=== PATIENT | male | born 1950 | race Caucasian/White ===

== ENCOUNTER 2016-12-19 14:12 | Observation (INO) ==
[2016-12-19] MEDS ORDERED: 0.9 % Sodium Chloride 1,000 ML IVC ONE (14:14)
--- NOTE | 2016-12-19 14:35 | Emergency Department Note ---
Disposition Clinical Impression: Colitis Dyspnea Qualifiers: Dyspnea type: shortness of breath Qualified Code(s): R06.02 - Shortness of breath Sepsis Qualifiers: Sepsis type: sepsis due to unspecified organism Qualified Code(s): A41.9 - Sepsis, unspecified organism Disposition: Admitted As Inpatient Condition: Fair Referrals: NO,PCP [Non-Partnered Physician] - Forms: ED Satisfaction Letter Time of Disposition: 17:47 SOB HPI - General Chief Complaint: ED Shortness of Breath/Dyspnea Stated Complaint: cough/mona Time Seen by Provider: 12/19/16 14:14 Source: EMS Mode of arrival: EMS Limitations: no limitations Nursing Notes Reviewed: Yes Vital Signs Reviewed: Yes - History of Present Illness 66-year-old male with history of COPD on dialysis, last dialysis one day ago, arrives to emergency emergency department with a chronic cough, ill feeling, and tachypneic. The patient states that the ill feeling started 2-3 days ago and the cough was roughly 3 weeks ago. The patient was diagnosed with bronchitis roughly 1 month ago and started on albuterol inhaler as well as finished a by mouth steroid. The patient stated that did not help his symptoms. The patient states he feels ill overall. The patient denies any chest pain, abdominal pain, diarrhea. The patient has had a few episodes of posttussive vomiting. In addition the patient is complaining of right eye itching and discharge. The patient does have a yellowish discharge in the medial aspect of bilateral eyes. The conjunctiva on the right eye is injected. The patient denies any other complaints at this time. No visual abnormalities. Pt Subjective Complaint: shortness of breath, cough Onset (ago): day(s) (4) Consistency/Duration: constant Improves with: nothing Worsens with: nothing Known history of: recurrent pneumonia Associated symptoms: Reports: sputum production Treatment prior to arrival: none Cough present: Yes Cough Description: Involuntary, Productive Cough Frequency: Continuous Sputum production: Yes Sputum Amount: Small Sputum Color: White, Cream - Related Data Home oxygen amount: none Home Medications Medication Instructions Recorded Confirmed Omeprazole [PriLOSEC] 20 mg PO HS 08/05/15 12/19/16 Ergocalciferol (VITAMIN D2) 100,000 unit PO MO 09/16/15 12/19/16 [Vitamin D2 (50,000 UNIT)] Allopurinol [Zyloprim 100 MG] 100 mg PO DAILY 12/05/15 12/19/16 Loratadine [Claritin] 10 mg PO DAILY 12/05/15 12/19/16 Sevelamer [Renvela] 800 mg PO TIDWM 12/05/15 12/19/16 Albuterol Sulfate [Proair Hfa] 2 puff IH Q4H PRN 01/31/16 12/19/16 Furosemide [Lasix] 40 mg PO BID 01/31/16 12/19/16 Tamsulosin [Flomax] 0.4 mg PO DAILY 01/31/16 12/19/16 Albuterol Neb [Proventil Neb] 2.5 mg IH Q4HR PRN 12/19/16 12/19/16 Insulin Glargine,Hum.rec.anlog 67 unit SQ HS 12/19/16 12/19/16 [Lantus Solostar] Insulin LISPRO [HumaLOG] 37 units SQ TIDWM 12/19/16 12/19/16 Multivitamin [Multi-Day Vitamins] 1 each PO DAILY 12/19/16 12/19/16 Propranolol [Inderal] 10 mg PO DAILY 12/19/16 12/19/16 Silver Sulfadiazine [Ssd] 1 appl TP BID 12/19/16 12/19/16 Simvastatin [Zocor] 20 mg PO HS 12/19/16 12/19/16 Allergies Allergy/AdvReac Type Severity Reaction Status Date / Time No Known Allergies Allergy Verified 02/18/16 07:17 All systems ED: reviewed and negative except as stated. Constitutional: Reports: chills. Denies: fever, weakness, weight change Eyes: Reports: eye discharge. Denies: eye pain, vision change ENT ED: Denies: ear pain, throat pain, dental pain, hearing loss, epistaxis, congestion, dysphagia Cardiovascular: Denies: chest pain, palpitations, dyspnea on exertion, edema, syncope Respiratory: Reports: cough, dyspnea, sputum production. Denies: wheezes, hemoptysis, stridor Gastrointestinal: Denies: abdominal pain, nausea, vomiting, diarrhea, constipation, hematemesis, melena, hematochezia Musculoskeletal: Denies: back pain, neck pain, arthralgia, myalgia Integumentary: Denies: rash, abrasion, lesions Neurological: Denies: headache, weakness, numbness, paresthesias, confusion, abnormal gait, vertigo Past Medical History - Past Medical History Attestation: Yes The following information was validated with the patient. Source: patient Medical history: Reports: diabetes, dialysis, hyperlipidemia, peripheral artery disease, renal disease Surgical history: Reports: cholecystectomy, orthopedic, other, other Psychiatric history: Reports: no psych history - Social History Smoking Status: Never smoker Smokeless Tobacco Status: No Alcohol use: Reports: none Drug use: Reports: none Physical Exam - General Limitations: no limitations General appearance: alert - Head Head exam: atraumatic, normocephalic, normal inspection - Eye Eye exam: Present: conjunctival injection (On right) - ENT ENT exam: normal exam, normal oropharynx, mucous membranes moist - Neck Neck exam: Present: normal inspection, full ROM, trachea midline - Chest Chest inspection: Present: normal inspection, symmetric chest wall rise - Respiratory Respiratory exam: Present: other (Course breath sounds bilaterally, tachypneic) - Cardiovascular Cardiovascular exam: Present: normal rhythm, tachycardia, normal heart sounds - Abdominal Exam Abdominal exam: Present: soft, Non-Tender. Absent: tenderness, distention, guarding, rebound, rigidity - Extremities Exam Extremities exam: Present: normal inspection, full ROM, other (Bilateral digits missing on hands, left dialysis fistula intact with palpable thrill). Absent: tenderness, pedal edema - Back Exam Back exam: Present: normal inspection, full ROM. Absent: tenderness - Neurological Exam Neurological exam: Present: alert, oriented X3 - Skin Skin exam: Present: warm, dry, intact, normal color Course - Reevaluation(s) Reevaluation #1: Patient's lactic acid returned at 3.2. At this time will conduct further investigation as the patient's chest x-ray is negative for any acute findings. The patient does have no leukocytosis noted. The patient does currently make urine. We will obtain a urinalysis, CT scan of the chest, abdomen, pelvis. The patient has no obvious wounds that would be indicative of causing the patient's septic symptoms at this time. The patient received 1 L fluid bolus. Time: 15:13 Reevaluation #2: Patient states that he is so short of breath he is unable to get into his wheelchair or perform ADL's. The patient has no wheezing or decreased breath sounds on auscultation. Vital Signs Temperature 98.2 F 12/19/16 14:12 Pulse Rate 108 12/19/16 14:12 Respiratory Rate 20 12/19/16 14:12 Blood Pressure 120/72 12/19/16 14:12 O2 Sat by Pulse Oximetry 100 12/19/16 14:12 Temperature 98.2 F 12/19/16 14:12 Pulse Rate 83 12/19/16 16:26 Respiratory Rate 18 12/19/16 16:26 Blood Pressure 122/65 12/19/16 16:26 O2 Sat by Pulse Oximetry 96 12/19/16 16:26 Oxygen Delivery Oxygen Delivery Room Air Shortness of Breath/Dyspnea - MDM Narrative Medical decision making narrative: Admitted by hospitalist - Medical Records Medical records reviewed: Yes I reviewed the patient's medical records. - Lab Data Lab results reviewed: Yes I reviewed the patient's lab results. Result diagrams: 12/19/16 14:30 12/19/16 14:30 Lab Results 12/19/16 12/19/16 12/19/16 Range/Units 14:30 14:30 14:30 WBC 8.5 (4.3-11.1) K/mcL RBC 2.87 L (4.19-5.50) M/mcL Hgb 9.6 L (12.9-16.9) g/dL Hct 27.7 L (37.5-50.1) % MCV 96.5 (83.0-100.0) fL MCH 33.4 H (28.0-33.3) pg MCHC 34.7 (31.6-35.5) g/dL RDW 13.4 (11.5-14.5) % Plt Count 223 (140-400) K/mcL MPV 8.8 L (9.4-12.4) fL Immature Gran % 0.4 (0-4) % Seg Neutrophils % 69.3 % Lymphocytes % 18.7 % Monocytes % 6.4 % Eosinophils % 4.7 % Basophils % 0.5 % Neutrophils # 5.9 (1.6-8.9) K/mcL Lymphocytes # 1.6 (0.6-4.6) K/mcL Monocytes # 0.5 (0.0-1.3) K/mcL Eosinophils # 0.4 (0.0-0.6) K/mcL Basophils # 0.0 (0.0-0.2) K/mcL Sodium 141 (136-145) mEq/L Potassium 4.0 (3.5-4.5) mEq/L Chloride 102 (98-109) mEq/L Carbon Dioxide 26 (19-29) mEq/L BUN 33 H (8-26) mg/dL Creatinine 4.71 H (0.72-1.25) mg/dL Est GFR ( Amer) 15 L (> 60) Est GFR (Non-Af Amer) 12 L (> 60) BUN/Creatinine Ratio 7 (6-26) Glucose 207 H (70-99) mg/dL Calculated Osmolality 305 H (280-300) Lactic Acid 3.2 H (0.5-2.2) mmol/L Calcium 9.2 (8.6-10.8) mg/dL Urine Color (Yellow) Urine Clarity (Clear) Urine pH (5.0-8.0) pH Units Ur Specific [place] (1.010-1.025) Urine Protein (Neg-Trace) mg/dL Urine Glucose (UA) (Normal) mg/dL Urine Ketones (Negative) mg/dL Urine Blood (Negative) Urine Nitrite (Negative) Urine Bilirubin (Negative) Urine Urobilinogen (Normal) mg/dL Ur Leukocyte Esterase (Negative) Urine Microscopic RBC (0-3) per hpf Urine Microscopic WBC (0-3) per hpf Ur Squamous Epith Cells (None-Few) per lpf Urine Bacteria (None-Few) per hpf Hyaline Casts (None-Few) per lpf Ur Culture Indicated? (NO) 12/19/16 Range/Units 17:05 WBC (4.3-11.1) K/mcL RBC (4.19-5.50) M/mcL Hgb (12.9-16.9) g/dL Hct (37.5-50.1) % MCV (83.0-100.0) fL MCH (28.0-33.3) pg MCHC (31.6-35.5) g/dL RDW (11.5-14.5) % Plt Count (140-400) K/mcL MPV (9.4-12.4) fL Immature Gran % (0-4) % Seg Neutrophils % % Lymphocytes % % Monocytes % % Eosinophils % % Basophils % % Neutrophils # (1.6-8.9) K/mcL Lymphocytes # (0.6-4.6) K/mcL Monocytes # (0.0-1.3) K/mcL Eosinophils # (0.0-0.6) K/mcL Basophils # (0.0-0.2) K/mcL Sodium (136-145) mEq/L Potassium (3.5-4.5) mEq/L Chloride (98-109) mEq/L Carbon Dioxide (19-29) mEq/L BUN (8-26) mg/dL Creatinine (0.72-1.25) mg/dL Est GFR ( Amer) (> 60) Est GFR (Non-Af Amer) (> 60) BUN/Creatinine Ratio (6-26) Glucose (70-99) mg/dL Calculated Osmolality (280-300) Lactic Acid (0.5-2.2) mmol/L Calcium (8.6-10.8) mg/dL Urine Color Yellow (Yellow) Urine Clarity Clear (Clear) Urine pH 7.0 (5.0-8.0) pH Units Ur Specific [place] 1.016 (1.010-1.025) Urine Protein 100 H (Neg-Trace) mg/dL Urine Glucose (UA) 500 H (Normal) mg/dL Urine Ketones Negative (Negative) mg/dL Urine Blood Trace H (Negative) Urine Nitrite Negative (Negative) Urine Bilirubin Negative (Negative) Urine Urobilinogen Normal (Normal) mg/dL Ur Leukocyte Esterase Small H (Negative) Urine Microscopic RBC 0-3 (0-3) per hpf Urine Microscopic WBC 5-15 H (0-3) per hpf Ur Squamous Epith Cells Many H (None-Few) per lpf Urine Bacteria None Seen (None-Few) per hpf Hyaline Casts None Seen (None-Few) per lpf Ur Culture Indicated? YES A (NO) - Radiology Data Radiology results reviewed: Yes I reviewed the patient's radiology results. - EKG Data EKG attestation: Yes I reviewed and interpreted this EKG. EKG results narrative: Heart rate 10 3 bpm. AR interval 185 ms. QTC 43 ms. Normal axis. Sinus tachycardia. No ST elevation or ST depression noted.
[2016-12-19 14:39] LABS: Basophils % 0.5 %; Eosinophils # 0.4 K/mcL (0.0-0.6); Eosinophils % 4.7 %; Hematocrit 27.7 % (37.5-50.1); Hemoglobin 9.6 g/dL (12.9-16.9); Immature Granulocytes % 0.4 % (0-4); Lymphocytes # 1.6 K/mcL (0.6-4.6); Lymphocytes % 18.7 %; Mean Corpuscular HGB Conc 34.7 g/dL (31.6-35.5); Mean Corpuscular Hemoglobin 33.4 pg (28.0-33.3); Mean Corpuscular Volume 96.5 fL (83.0-100.0); Mean Platelet Volume 8.8 fL (9.4-12.4); Monocytes # 0.5 K/mcL (0.0-1.3); Monocytes % 6.4 %; Neutrophils # 5.9 K/mcL (1.6-8.9); Platelet Count 223 K/mcL (140-400); Red Blood Count 2.87 M/mcL (4.19-5.50); Red Cell Distribution Width 13.4 % (11.5-14.5); Segmented Neutrophils % 69.3 %
[2016-12-19 14:50] LABS: Calcium 9.2 mg/dL (8.6-10.8)
[2016-12-19] MEDS ORDERED: Ondansetron 4 MG/2 ML VIAL IVP ONE (16:47)
--- NOTE | 2016-12-19 17:02 | Emergency Department Note ---
Disposition Clinical Impression: Dyspnea, Colitis, Sepsis Disposition: Admitted As Inpatient Condition: Fair General Adult HPI - General Chief complaint: ED Shortness of Breath/Dyspnea Stated complaint: cough/mona Time Seen by Provider: 12/19/16 14:14 Source: EMS Mode of arrival: EMS Limitations: no limitations - History of Present Illness Pain Scale: 4 - Related Data Home Medications Medication Instructions Recorded Confirmed Omeprazole [PriLOSEC] 20 mg PO HS 08/05/15 12/19/16 Ergocalciferol (VITAMIN D2) 100,000 unit PO MO 09/16/15 12/19/16 [Vitamin D2 (50,000 UNIT)] Allopurinol [Zyloprim 100 MG] 100 mg PO DAILY 12/05/15 12/19/16 Loratadine [Claritin] 10 mg PO DAILY 12/05/15 12/19/16 Sevelamer [Renvela] 800 mg PO TIDWM 12/05/15 12/19/16 Albuterol Sulfate [Proair Hfa] 2 puff IH Q4H PRN 01/31/16 12/19/16 Furosemide [Lasix] 40 mg PO BID 01/31/16 12/19/16 Tamsulosin [Flomax] 0.4 mg PO DAILY 01/31/16 12/19/16 Albuterol Neb [Proventil Neb] 2.5 mg IH Q4HR PRN 12/19/16 12/19/16 Insulin Glargine,Hum.rec.anlog 67 unit SQ HS 12/19/16 12/19/16 [Lantus Solostar] Insulin LISPRO [HumaLOG] 37 units SQ TIDWM 12/19/16 12/19/16 Multivitamin [Multi-Day Vitamins] 1 each PO DAILY 12/19/16 12/19/16 Propranolol [Inderal] 10 mg PO DAILY 12/19/16 12/19/16 Silver Sulfadiazine [Ssd] 1 appl TP BID 12/19/16 12/19/16 Simvastatin [Zocor] 20 mg PO HS 12/19/16 12/19/16 Allergies Allergy/AdvReac Type Severity Reaction Status Date / Time No Known Allergies Allergy Verified 02/18/16 07:17 Constitutional: Reports: chills. Denies: fever, weakness, weight change Eyes: Reports: eye discharge. Denies: eye pain, vision change ENT ED: Denies: ear pain, throat pain, dental pain, hearing loss, epistaxis, congestion, dysphagia Cardiovascular: Denies: chest pain, palpitations, dyspnea on exertion, edema, syncope Respiratory: Reports: cough, dyspnea, sputum production. Denies: wheezes, hemoptysis, stridor Gastrointestinal: Denies: abdominal pain, nausea, vomiting, diarrhea, constipation, hematemesis, melena, hematochezia Musculoskeletal: Denies: back pain, neck pain, arthralgia, myalgia Integumentary: Denies: rash, abrasion, lesions Neurological: Denies: headache, weakness, numbness, paresthesias, confusion, abnormal gait, vertigo Past Medical History - Past Medical History Medical history: Reports: diabetes, dialysis, hyperlipidemia, peripheral artery disease, renal disease Surgical history: Reports: cholecystectomy, orthopedic, other, other Psychiatric history: Reports: no psych history - Social History Smoking Status: Never smoker Smokeless Tobacco Status: No Alcohol use: Reports: none Drug use: Reports: none Physical Exam - General Limitations: no limitations General appearance: alert Course - Reevaluation(s) Reevaluation #1: I saw the patient with the resident, Dr. Carbajal. Patient presents with complaint of shortness of breath. Was recently diagnosed bronchitis and treated with steroids. Says he never got any better. Shortness of breath is so severe he is not able to get himself out of bed into his wheelchair. He is coughing a lot. Based on symptoms along the patient's current need to be admitted to the hospital for failed outpatient treatment of bronchitis. With doing a workup to look for other possibilities including pneumonia, intra- abdominal processes, or metabolic derangements, etc. Final disposition will be based on the diagnostic results and reevaluation. Time: 17:02 Vital Signs Temperature 98.2 F 12/19/16 14:12 Pulse Rate 108 12/19/16 14:12 Respiratory Rate 20 12/19/16 14:12 Blood Pressure 120/72 12/19/16 14:12 O2 Sat by Pulse Oximetry 100 12/19/16 14:12 Temperature 98.5 F 12/19/16 21:15 Pulse Rate 87 12/19/16 21:15 Respiratory Rate 16 12/19/16 21:15 Blood Pressure 145/79 12/19/16 21:15 O2 Sat by Pulse Oximetry 97 12/19/16 21:15 Oxygen Delivery Oxygen Delivery Room Air Medical Decision Making - Lab Data Result diagrams: 12/19/16 14:30 12/19/16 14:30 Lab Results 12/19/16 12/19/16 12/19/16 Range/Units 14:30 14:30 14:30 WBC 8.5 (4.3-11.1) K/mcL RBC 2.87 L (4.19-5.50) M/mcL Hgb 9.6 L (12.9-16.9) g/dL Hct 27.7 L (37.5-50.1) % MCV 96.5 (83.0-100.0) fL MCH 33.4 H (28.0-33.3) pg MCHC 34.7 (31.6-35.5) g/dL RDW 13.4 (11.5-14.5) % Plt Count 223 (140-400) K/mcL MPV 8.8 L (9.4-12.4) fL Immature Gran % 0.4 (0-4) % Seg Neutrophils % 69.3 % Lymphocytes % 18.7 % Monocytes % 6.4 % Eosinophils % 4.7 % Basophils % 0.5 % Neutrophils # 5.9 (1.6-8.9) K/mcL Lymphocytes # 1.6 (0.6-4.6) K/mcL Monocytes # 0.5 (0.0-1.3) K/mcL Eosinophils # 0.4 (0.0-0.6) K/mcL Basophils # 0.0 (0.0-0.2) K/mcL Sodium 141 (136-145) mEq/L Potassium 4.0 (3.5-4.5) mEq/L Chloride 102 (98-109) mEq/L Carbon Dioxide 26 (19-29) mEq/L BUN 33 H (8-26) mg/dL Creatinine 4.71 H (0.72-1.25) mg/dL Est GFR ( Amer) 15 L (> 60) Est GFR (Non-Af Amer) 12 L (> 60) BUN/Creatinine Ratio 7 (6-26) Glucose 207 H (70-99) mg/dL Calculated Osmolality 305 H (280-300) Lactic Acid 3.2 H (0.5-2.2) mmol/L Calcium 9.2 (8.6-10.8) mg/dL Urine Color (Yellow) Urine Clarity (Clear) Urine pH (5.0-8.0) pH Units Ur Specific [place] (1.010-1.025) Urine Protein (Neg-Trace) mg/dL Urine Glucose (UA) (Normal) mg/dL Urine Ketones (Negative) mg/dL Urine Blood (Negative) Urine Nitrite (Negative) Urine Bilirubin (Negative) Urine Urobilinogen (Normal) mg/dL Ur Leukocyte Esterase (Negative) Urine Microscopic RBC (0-3) per hpf Urine Microscopic WBC (0-3) per hpf Ur Squamous Epith Cells (None-Few) per lpf Urine Bacteria (None-Few) per hpf Hyaline Casts (None-Few) per lpf Ur Culture Indicated? (NO) 12/19/16 Range/Units 17:05 WBC (4.3-11.1) K/mcL RBC (4.19-5.50) M/mcL Hgb (12.9-16.9) g/dL Hct (37.5-50.1) % MCV (83.0-100.0) fL MCH (28.0-33.3) pg MCHC (31.6-35.5) g/dL RDW (11.5-14.5) % Plt Count (140-400) K/mcL MPV (9.4-12.4) fL Immature Gran % (0-4) % Seg Neutrophils % % Lymphocytes % % Monocytes % % Eosinophils % % Basophils % % Neutrophils # (1.6-8.9) K/mcL Lymphocytes # (0.6-4.6) K/mcL Monocytes # (0.0-1.3) K/mcL Eosinophils # (0.0-0.6) K/mcL Basophils # (0.0-0.2) K/mcL Sodium (136-145) mEq/L Potassium (3.5-4.5) mEq/L Chloride (98-109) mEq/L Carbon Dioxide (19-29) mEq/L BUN (8-26) mg/dL Creatinine (0.72-1.25) mg/dL Est GFR ( Amer) (> 60) Est GFR (Non-Af Amer) (> 60) BUN/Creatinine Ratio (6-26) Glucose (70-99) mg/dL Calculated Osmolality (280-300) Lactic Acid (0.5-2.2) mmol/L Calcium (8.6-10.8) mg/dL Urine Color Yellow (Yellow) Urine Clarity Clear (Clear) Urine pH 7.0 (5.0-8.0) pH Units Ur Specific [place] 1.016 (1.010-1.025) Urine Protein 100 H (Neg-Trace) mg/dL Urine Glucose (UA) 500 H (Normal) mg/dL Urine Ketones Negative (Negative) mg/dL Urine Blood Trace H (Negative) Urine Nitrite Negative (Negative) Urine Bilirubin Negative (Negative) Urine Urobilinogen Normal (Normal) mg/dL Ur Leukocyte Esterase Small H (Negative) Urine Microscopic RBC 0-3 (0-3) per hpf Urine Microscopic WBC 5-15 H (0-3) per hpf Ur Squamous Epith Cells Many H (None-Few) per lpf Urine Bacteria None Seen (None-Few) per hpf Hyaline Casts None Seen (None-Few) per lpf Ur Culture Indicated? YES A (NO) Attestation Statement - Attestation Attestation: I, Dr. aKn, examined this patient [id number] and my medical decision- making was reviewed with Dr. Castellanos, Resident Physician. I agree with the documented findings, disposition and treatment plan as described except to the extent set forth below. Please see my progress notes for details.
[2016-12-19 17:26] LABS: Bilirubin,Urine Negative (Negative); Blood,Urine Trace (Negative); Clarity,Urine Clear (Clear); Color,Urine Yellow (Yellow); Glucose,Urine (UA) 500 mg/dL (Normal); Ketones,Urine Negative (Negative); Leukocyte Esterase,Urine Small (Negative); Nitrite,Urine Negative (Negative); Protein,Urine 100 mg/dL (Neg-Trace); Specific Gravity,Urine 1.016 (1.010-1.025); Urobilinogen,Urine Normal (Normal)
[2016-12-19 17:28] LABS: Bacteria,Urine None Seen per hpf (None-Few); Hyaline Casts,Urine None Seen per lpf (None-Few); RBC,Urine 0-3 per hpf (0-3); Squamous Epithelial Cell,Urine Many per lpf (None-Few)
[2016-12-19] MEDS ORDERED: MetroNIDAZOLE 500 MG/100 ML 500 MG/100 ML BAG IVPB ONE (17:39)
[2016-12-19] MEDS ORDERED: Ondansetron 4 MG/2 ML VIAL IVP PRN (20:08)
[2016-12-19] MEDS ORDERED: Naloxone 0.4 MG/ML INJ IVP PRN (20:08)
[2016-12-19] MEDS ORDERED: Acetaminophen 325 MG TABLET PO PRN (20:08)
[2016-12-19] MEDS ORDERED: *HR* Dextrose 50 % in Water (Syg) 50 ML SYRINGE IVP PRN (20:53)
[2016-12-19] MEDS ORDERED: Dextrose Gel 15 GM PO PRN ×2 (20:53)
[2016-12-19] MEDS ORDERED: D5% in Water 1,000 ML IVC PRN (20:53)
[2016-12-19] MEDS ORDERED: GuaiFENesin/Codeine Oral Soln 5 ML UDC PO PRN (20:54)
[2016-12-19] MEDS ORDERED: Insulin LISPRO 300 UNITS/3 ML VIAL SQ SCH (21:00)
--- NOTE | 2016-12-19 21:01 | Internal Med History&Physical ---
Date of Encounter: 12/19/16 Time of Encounter: 19:45 Assessment and Plan (1) Cough Current visit: Yes Status: Acute Patient has dry cough without any sputum production. He does not have any fever. He has been afebrile in the emergency room. No leukocytosis. CT scan of the chest personally reviewed and does not reveal any acute infiltrates or pneumonia. Patient likely has post bronchitis cough due to dictation. Will place him on cough suppressants as he has dry cough. Place the patient to observation status. (2) ESRD (end stage renal disease) on dialysis Current visit: Yes Status: Chronic Under the care of Dr. Telles. Nephrology consulted. Case discussed with Dr. Telles. Patient will be evaluated by nephrology in the morning regarding his complaints of left arm fistula swelling and pain. (3) Diabetes mellitus Current visit: Yes Status: Chronic Continue home insulin regimen. Sliding-scale insulin. 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 Will order antibiotic eyedrops. Qualifiers: Conjunctivitis type: acute Acute conjunctivitis type: viral Laterality: right Qualified Code(s): B30.9 - Viral conjunctivitis, unspecified Internal Medicine - H&P: HPI Chief complaint: Dry cough Admitted From: Emergency Dept Plans for Post Hospital Care: Home History of present illness: Mr. Brooks is a 66 year old male with a history of end-stage renal disease on hemodialysis on Sunday, Sunday and Sunday by Dr. Telles who presented to the emergency department due to persistent dry cough. Patient states that he was admitted to this hospital about 3 weeks ago due to bronchitis and was treated for the same. After discharge, he states that his sputum production resolved. However, he continued to have a trickling sensation in his throat causing him to have persistent dry cough without any sputum production. He reports some chills but denies any fever. He states that the extensive coughing makes and become lightheaded. He denies any chest pain, wheezing. He does report nausea and vomiting from extensive coughing. He also reports pain in his right eye and some discharge from the right eye. He denies any recent weight changes. He reports that he had noticed some swelling in his left arm at his fistula site yesterday that has gone down today. He also reports mild pain in the same location. Past Med Surg Social Fam HX - Past Medical History Attestation: Yes The following information was validated with the patient. Source: patient Medical history: diabetes, dialysis, hyperlipidemia, peripheral artery disease, renal disease Psychiatric history: no psych history - Past Surgical History Surgical History: cholecystectomy, orthopedic, other, other - Social History Smoking Status: Never smoker Smokeless Tobacco Status: No Alcohol use: none Drug use: none Current living situation: Home (With caregiver) Activity Level: Wheelchair bound - Family History Mother Living Status: Father Adopted: No Living Status: Hx Family Endocrine Disorder: Yes Internal Medicine - H&P: Meds Omeprazole [PriLOSEC] 20 mg PO HS 08/05/15 [History] Ergocalciferol (VITAMIN D2) [Vitamin D2 (50,000 UNIT)] 100,000 unit PO MO [History] Allopurinol [Zyloprim 100 MG] 100 mg PO DAILY 12/05/15 [History] Loratadine [Claritin] 10 mg PO DAILY 12/05/15 [History] Sevelamer [Renvela] 800 mg PO TIDWM 12/05/15 [History] Albuterol Sulfate [Proair Hfa] 2 puff IH Q4H PRN 01/31/16 [History] Furosemide [Lasix] 40 mg PO BID 01/31/16 [History] Tamsulosin [Flomax] 0.4 mg PO DAILY 01/31/16 [History] Albuterol Neb [Proventil Neb] 2.5 mg IH Q4HR PRN 12/19/16 [History] Insulin Glargine,Hum.rec.anlog [Lantus Solostar] 67 unit SQ HS 12/19/16 [History ] Insulin LISPRO [HumaLOG] 37 units SQ TIDWM 12/19/16 [History] Multivitamin [Multi-Day Vitamins] 1 each PO DAILY 12/19/16 [History] Propranolol [Inderal] 10 mg PO DAILY 12/19/16 [History] Silver Sulfadiazine [Ssd] 1 appl TP BID 12/19/16 [History] Simvastatin [Zocor] 20 mg PO HS 12/19/16 [History] Allergies No Known Allergies Allergy (Verified 02/18/16 07:17) All Systems PM: A 10-system review of systems was performed and is negative for pertinent findings except as documented above in the HPI. Review of systems: 10 systems have been reviewed and are negative except as mentioned in the history of present illness - Constitutional Vitals: Temp Pulse Resp BP Pulse Ox 98.2 F 83 18 122/65 96 12/19/16 14:12 12/19/16 16:26 12/19/16 19:51 12/19/16 19:51 12/19/16 16:26 Exam: Gen.: Lying in bed. Mild distress. Eyes: Pupils equal, round and reactive to light. Extraocular muscles intact. Conjunctival erythema present in the right eye. ENT: Moist mucous membranes. No oropharyngeal erythema or discharge. Chest: Clear to auscultation bilaterally. No adventitious sounds present. CVS: First and second heart sounds present. No murmurs, rubs or gallops. Abdomen: Soft, nontender, nondistended. Bowel sounds present. No hepatosplenomegaly. Skin: No decubitus ulcers appreciated. 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 However, power in his forearms and upper arms is 5/5. Unable to assess power in his feet. However, lower extent the strength is 5/5 at the hip and knee joints. Psychiatric: Alert, awake and oriented to time, place and person. Lymphatic system: No lymphadenopathy appreciated Musculoskeletal: Contractures in bilateral upper fingers and status post ablation of the left second and third fingers. Contractures was also present in bilateral toes. Internal Med - H&P Results - Labs CBC & Chem 7: 12/19/16 14:30 12/19/16 14:30 - Diagnostic Studies CT scan - chest Status: image reviewed by me (no acute infiltrates seen)
[2016-12-19] MEDS: Artificial Tears SOLN 15 ML BOTTLE BOTH EYES SCH (22:59)
[2016-12-19] MEDS: *HR* Heparin 5,000 UNIT/ML VIAL SQ SCH (23:06)
[2016-12-20 04:38] LABS: Basophils % 0.5 %; Eosinophils # 0.4 K/mcL (0.0-0.6); Eosinophils % 5.6 %; Hematocrit 24.4 % (37.5-50.1); Hemoglobin 8.4 g/dL (12.9-16.9); Immature Granulocytes % 0.4 % (0-4); Lymphocytes # 1.8 K/mcL (0.6-4.6); Lymphocytes % 23.3 %; Mean Corpuscular HGB Conc 34.4 g/dL (31.6-35.5); Mean Corpuscular Hemoglobin 33.3 pg (28.0-33.3); Mean Corpuscular Volume 96.8 fL (83.0-100.0); Mean Platelet Volume 9.9 fL (9.4-12.4); Monocytes # 0.5 K/mcL (0.0-1.3); Monocytes % 6.1 %; Neutrophils # 4.8 K/mcL (1.6-8.9); Platelet Count 223 K/mcL (140-400); Red Blood Count 2.52 M/mcL (4.19-5.50); Red Cell Distribution Width 13.5 % (11.5-14.5); Segmented Neutrophils % 64.1 %
[2016-12-20 05:02] LABS: Albumin 2.9 g/dL (3.5-5.0); Bilirubin,Total 0.3 mg/dL (0.2-1.2); Calcium 8.4 mg/dL (8.6-10.8); Globulin 2.8 g/dL (2.4-3.5); Total Protein 5.7 g/dL (6.0-8.3)
[2016-12-20] MEDS: *HR* Heparin 5,000 UNIT/ML VIAL SQ SCH ×2 (06:57→18:05)
--- NOTE | 2016-12-20 08:21 | Nephrology Consult Note ---
Date of Encounter: 12/20/16 Time of Encounter: 08:19 Assessment and Plan (1) ESRD (end stage renal disease) on dialysis Current Visit: Yes Status: Chronic The patient will undergo his usual dialysis today. I suspect that the hematoma around the AV fistula should eventually resolve on its own. No further treatment is necessary. I do not believe he requires antibiotics for the AV fistula. He will be placed on Aranesp for management of his anemia. (2) Anemia in chronic kidney disease Current Visit: No Status: Chronic History of Present Illness - History of Present Illness This is a 66-year-old male who is followed as an outpatient for end-stage renal disease. He receives dialysis every Sunday in [place]. Patient was admitted because of a nonproductive cough. He recently had been treated for acute bronchitis and he was worried that he was getting bronchitis again. Chest x-ray and CT scan of the chest were unremarkable for any acute process. Patient also has some swelling around his AV fistula. Her clinical exam a looks as though he had a recent infiltration of the fistula. The fistula is functioning. There is no obvious sign of infection. The patient denies any fevers or chills. He denies any shortness of breath or chest discomfort. Past Med Surg Social Fam HX - Past Medical History Medical history: diabetes, dialysis, hyperlipidemia, peripheral artery disease, renal disease Psychiatric history: no psych history - Past Surgical History Surgical History: cholecystectomy, orthopedic, other, other - Social History Smoking Status: Never smoker Smokeless Tobacco Status: No Alcohol use: none Drug use: none - Family History Mother Living Status: Father Adopted: No Living Status: Hx Family Endocrine Disorder: Yes Medications and Allergies Omeprazole [PriLOSEC] 20 mg PO HS 08/05/15 [History] Ergocalciferol (VITAMIN D2) [Vitamin D2 (50,000 UNIT)] 100,000 unit PO MO [History] Allopurinol [Zyloprim 100 MG] 100 mg PO DAILY 12/05/15 [History] Loratadine [Claritin] 10 mg PO DAILY 12/05/15 [History] Sevelamer [Renvela] 800 mg PO TIDWM 12/05/15 [History] Albuterol Sulfate [Proair Hfa] 2 puff IH Q4H PRN 01/31/16 [History] Furosemide [Lasix] 40 mg PO BID 01/31/16 [History] Tamsulosin [Flomax] 0.4 mg PO DAILY 01/31/16 [History] Albuterol Neb [Proventil Neb] 2.5 mg IH Q4HR PRN 12/19/16 [History] Insulin Glargine,Hum.rec.anlog [Lantus Solostar] 67 unit SQ HS 12/19/16 [History ] Insulin LISPRO [HumaLOG] 37 units SQ TIDWM 12/19/16 [History] Multivitamin [Multi-Day Vitamins] 1 each PO DAILY 12/19/16 [History] Propranolol [Inderal] 10 mg PO DAILY 12/19/16 [History] Silver Sulfadiazine [Ssd] 1 appl TP BID 12/19/16 [History] Simvastatin [Zocor] 20 mg PO HS 12/19/16 [History] Allergies No Known Allergies Allergy (Verified 02/18/16 07:17) Review of Systems Constitutional: as per HPI Eyes: bilateral: blurred vision (patient denies), diplopia (patient denies) Nose, mouth and throat: no dizziness, no headache(s) Cardiovascular: no chest pain, no palpitations Respiratory: cough Gastrointestinal: no abdominal pain, no change in bowel habits Musculoskeletal: no muscle weakness, no numbness Integumentary: no hirsutism, no striae Neurological: as per HPI Psychiatric: no depression, no difficulty concentrating Endocrine: as per HPI Hematologic/Lymphatic: no easy bruising, no lymphadenopathy Exam - Vital Signs Vital signs: Initial Vital Signs Temp Pulse Resp BP Pulse Ox 98.2 F 108 20 120/72 100 12/19/16 14:12 12/19/16 14:12 12/19/16 14:12 12/19/16 14:12 12/19/16 14:12 Vital Signs - Last 8 Hours Temp Pulse Resp BP Pulse Ox 12/20/16 07:55 98.3 F 90 14 146/69 97 12/20/16 02:49 98.5 F 88 18 156/86 97 Intake and Output 12/19/16 12/20/16 12/20/16 23:59 07:59 15:59 Intake Total 400 / 1400 Balance 400 / 1400 Intake: Oral 400 / 400 Other: Stool Size Moderate Stool Consistency formed Stool Color Brown # Bowel Movements 1 Weight 92.1 kg Blood Glucose* 286 162 Patient Weight 12/20/16 23:59 Weight 92.1 kg - General Appearance Exam: The patient is alert and oriented. He is in no acute distress. Neck is supple. Lungs show diminished breath sounds otherwise clear. Heart regular rate and rhythm with a 2/6 systolic ejection murmur. Abdomen shows normal bowel sounds bruits masses, megaly or tenderness. There is no peripheral edema. He has several fingers of been amputated. There is a functioning AV fistula in the upper portion of the left arm. There is a surrounding hematoma from her previous venous infiltration. No obvious sign of infection. Results - Lab Results 12/20/16 03:32 12/20/16 03:32 Most recent lab results Calcium 8.4 mg/dL (8.6-10.8) L 12/20/16 03:32 Consult Discharge Plan - Plan Referrals: Maxx Jimenes DO [Primary Care Provider] -
[2016-12-20] MEDS ORDERED: 0.9 % Sodium Chloride 250 ML IVC PRN (08:22)
[2016-12-20] MEDS ORDERED: Darbepoetin 100 MCG/0.5 ML SYRINGE SQ SCH (08:30)
[2016-12-20] MEDS: Insulin LISPRO 300 UNITS/3 ML VIAL SQ SCH ×6 (08:45→18:28)
[2016-12-20] MEDS: Artificial Tears SOLN 15 ML BOTTLE BOTH EYES SCH ×3 (08:47→18:27)
[2016-12-20] MEDS ORDERED: Loratadine 10 MG TABLET PO SCH (09:00)
[2016-12-20] MEDS ORDERED: Silver Sulfadiazine 50 GM TUBE TP SCH (09:00)
[2016-12-20] MEDS ORDERED: Albuterol 2.5 MG/3 ML NEBULIZER IH PRN (09:28)
[2016-12-20 09:49] LABS: Hepatitis B Surface Antibody 4.85 mIU/mL; Hepatitis B Surface Antigen Nonreactive (Nonreactive)
--- NOTE | 2016-12-20 11:20 | Electrocardiograph Report ---
[address] [place], [place] [address] Test Date: 2016-12-19 Pat Name: Arnav Brooks Department: 105 Room: 2A Gender: M Application Consultant: : 1950 Requested By: Arnav Carbajal Order Number: [id number] Reading MD: Ole Sy MD Measurements Intervals [place] Rate: 103 P: 39 NV: 185 QRS: 48 QRSD: 81 T: 71 QT: 344 QTc: 403 Interpretive Statements SINUS TACHYCARDIA WITH OCCASIONAL SUPRAVENTRICULAR PREMATURE COMPLEXES BASELINE ARTIFACT Electronically Signed On 12-20-2016 11:18:44 EDT by Ole Sy MD
--- NOTE | 2016-12-20 13:43 | Discharge Summary ---
Date of Encounter: 12/20/16 Time of Encounter: 13:41 - Discharge Diagnosis (1) Cough Priority: Primary Status: Acute (2) Conjunctivitis Priority: Secondary Status: Acute Qualifiers: Conjunctivitis type: acute Acute conjunctivitis type: viral Laterality: right Qualified Code(s): B30.9 - Viral conjunctivitis, unspecified (3) Diabetes mellitus Priority: Secondary Status: Chronic Qualifiers: Diabetes mellitus type: type 2 Diabetes mellitus complication status: with circulatory complication Diabetes mellitus complication detail: with other circulatory complications Diabetes mellitus custodial insulin use: with custodial use Qualified Code(s): E11.59 - Type 2 diabetes mellitus with other circulatory complications; Z79.4 - [facility] (current) use of insulin (4) ESRD (end stage renal disease) on dialysis Priority: Secondary Status: Chronic - Discharge Medications Prescriptions: GuaiFENesin/Dextromethorphan [Robitussin/DM] 10 ml PO Q6HR PRN #250 ml PRN Reason: Cough Artificial Tears SOLN [Akwa Tears] 1 drop BOTH EYES QID #1 bottle Benzonatate [Tessalon] 100 mg PO TID #30 capsule Home Medications: Omeprazole [PriLOSEC] 20 mg PO HS 08/05/15 [History] Ergocalciferol (VITAMIN D2) [Vitamin D2 (50,000 UNIT)] 100,000 unit PO MO [History] Allopurinol [Zyloprim 100 MG] 100 mg PO DAILY 12/05/15 [History] Loratadine [Claritin] 10 mg PO DAILY 12/05/15 [History] Sevelamer [Renvela] 800 mg PO TIDWM 12/05/15 [History] Albuterol Sulfate [Proair Hfa] 2 puff IH Q4H PRN 01/31/16 [History] Furosemide [Lasix] 40 mg PO BID 01/31/16 [History] Tamsulosin [Flomax] 0.4 mg PO DAILY 01/31/16 [History] Albuterol Neb [Proventil Neb] 2.5 mg IH Q4HR PRN 12/19/16 [History] Insulin Glargine,Hum.rec.anlog [Lantus Solostar] 67 unit SQ HS 12/19/16 [History ] Insulin LISPRO [HumaLOG] 37 units SQ TIDWM 12/19/16 [History] Multivitamin [Multi-Day Vitamins] 1 each PO DAILY 12/19/16 [History] Propranolol [Inderal] 10 mg PO DAILY 12/19/16 [History] Silver Sulfadiazine [Ssd] 1 appl TP BID 12/19/16 [History] Simvastatin [Zocor] 20 mg PO HS 12/19/16 [History] Artificial Tears SOLN [Akwa Tears] 1 drop BOTH EYES QID #1 bottle 12/20/16 [Rx] Benzonatate [Tessalon] 100 mg PO TID #30 capsule 12/20/16 [Rx] GuaiFENesin/Dextromethorphan [Robitussin/DM] 10 ml PO Q6HR PRN #250 ml 12/20/16 [Rx] Allergies/Adverse Reactions: Allergies No Known Allergies Allergy (Verified 02/18/16 07:17) Date of admission: 12/19/16 17:49 Primary care physician: Maxx Jimenes Consults: 12/19/16 20:09 Consult to Physician [CONS] Routine Consulting Provider: Pete Telles Reason for Consult: ESRD on HD Call Completed: No 12/20/16 08:30 Consult to Dialysis [CONS] ONCE Discharging clinician: Kd Sandhu Anticipated date of discharge: 12/20/16 - Patient Status Disposition: Home, Self-Care Condition: Good Functional capacity at discharge: uses cane/walker Overall status at discharge: patient is progressing back to baseline - Discharge Instructions Instructions: Diabetes Mellitus Type 2 in Adults (DC) Follow Up With: Maxx Jimenes DO [Primary Care Provider] - (in 1-2 weeks) - Diet and Activity Diet: advance to your usual diet, diabetic diet, low fat, low cholesterol, low salt diet Hospital course: Mr. Brooks is a 66 year old male patient with a history of end-stage renal disease on hemodialysis, diabetes mellitus type 2 who was observed in the hospital after presentation with symptoms of upper respiratory tract infection including dry cough, conjunctivitis in the right eye. She had recently been treated for bronchitis and his cough appears to be related to a post bronchitis dry cough with superimposed viral conjunctivitis. During workup and is in the ER, patient underwent an abdominal and pelvis CT which showed possible colonic wall thickening. However patient did not have any abdominal pain, nausea or vomiting or diarrhea. As such it does not appear to be inflammatory or infectious colitis. Also there was concern for pain and swelling near the patient's left upper extremity fistula and nephrology was consulted to evaluate this further. By the time I saw the patient this morning, he no longer having pain in his left upper extremity and swelling had also been improving. This is believed to be due to her hematoma related to his most recent dialysis session. As it is already improving and there is good thrill in the fistula, there does not appear to be a thrombosis involved. The patient did undergo dialysis today and is doing well after. He is stable to be discharged home. He does not need any antibiotics for his colitis as he does not exhibit any signs or symptoms of colitis. He will follow up with his primary care provider for further management of his chronic medical conditions. - Time Spent with Patient Total time spent providing and/or coordinating discharge services: Less than 30 minutes (25 min) - Constitutional Vitals: Temp Pulse Resp BP Pulse Ox 98.2 F 92 16 107/66 96 12/20/16 11:15 12/20/16 11:15 12/20/16 11:15 12/20/16 11:15 12/20/16 11:15 General appearance: Present: cooperative, A&O X 3, pleasant, obese, answers questions appropriately - Cardiovascular Cardiovascular exam: Present: RRR, +S1, +S2. Absent: diastolic murmur, gallop, rubs, systolic murmur - Extremities Exam Extremities exam: Present: warm, radial pulses palpable and symetrical. Absent : calf tenderness, cyanotic, pedal edema - Neurological Exam Neurological exam: Present: alert, oriented X3, no focal deficits. Absent: facial droop, speech deficit - Attending Attestation This document has been at least partially created by [employer] recognition technology by Dr. Sandhu. Errors in grammar, wording or other phrases may exist. If errors are found after the documentation is signed, they will be addressed individually in the addendum section of this document when appropriate.
[2016-12-20] MEDS ORDERED: 0.9 % Sodium Chloride 2,000 ML ONE (18:13)
[2016-12-20 18:30] VITALS: BP 119/53
[2016-12-20] MEDS ORDERED: Insulin DETEMIR 100 UNIT/ML X5UNITS SQ SCH (21:00)
== END 2016-12-20 19:36 | disposition home health service (06) ==
LOC: 2ANU 14:12 → EMEROO 14:12 → 2ANU 20:07
PROVIDERS: ADMIT Internal Medicine; ATTEND Internal Medicine

== ENCOUNTER 2018-05-31 05:36 | Inpatient (IN) ==
[2018-05-31] MEDS ORDERED: *HR* Dextrose 50 % in Water (Syg) 50 ML SYRINGE IVP ONE (05:44)
--- NOTE | 2018-05-31 06:00 | Emergency Department Note ---
Disposition Clinical Impression: Sepsis due to undetermined organism, Diabetic ulcer of ankle, Hypoglycemia associated with diabetes Disposition: Admitted As Inpatient Condition: Fair Instructions: Diabetic Hypoglycemia (ED) Forms: ED Satisfaction Letter General Adult HPI - General Stated complaint: poss low blood sugar Time Seen by Provider: 05/31/18 05:37 Source: EMS Limitations: no limitations - History of Present Illness HPI Narrative: Arnav is a 67 YO M with a PMH significant for CKD on HD, IDDM and PAD presents to [place] ED with chief complaint of hypoglycemia. History comes from patient. Arnav states he was seen one week ago and given an albuterol inhaler for bronchitis, however ever since discharge he has felt generally unwell. He states that in the last 3 to 4 days he has woken up nauseous and in a cold sweat. He would check his blood glucose at that time and it would be consistently low. He states that he maintains his blood sugars with long acting basal insulin and a sliding scale. He states that during the day he is normally in the low 200's an in the mornings he is usually between 130-150, however in the last several mornings he has been below 60. This morning he was assessed at bedside and found to have a blood sugar of 45. He normally undergoes dialysis on a // schedule and was supposed to be dialyzed this morning at 0515, however that was interrupted by this emergency evaluation. He denies any acute illness other than his hypoglycemia. Onset (ago): day(s) Location: lower extremity Pain Scale: 0 Consistency: intermittent Improves with: eating Associated symptoms: Reports: confusion, diaphoresis, malaise, nausea/vomiting - Related Data Home Medications Medication Instructions Recorded Confirmed Omeprazole [PriLOSEC] 20 mg PO HS 08/05/15 03/28/18 Ergocalciferol (VITAMIN D2) 50,000 unit PO MO 09/16/15 03/28/18 [Vitamin D2 (50,000 UNIT)] Allopurinol [Zyloprim 100 MG] 100 mg PO DAILY 12/05/15 03/28/18 Sevelamer [Renvela] 800 mg PO TIDWM 12/05/15 03/28/18 Albuterol Sulfate [Proair Hfa] 2 puff IH Q4H PRN 01/31/16 08/30/17 Furosemide [Lasix] 40 mg PO BID 01/31/16 03/28/18 Tamsulosin [Flomax] 0.4 mg PO DAILY 01/31/16 03/28/18 Insulin Glargine,Hum.rec.anlog 50 unit SQ HS 12/19/16 03/28/18 [Lantus Solostar] Insulin LISPRO [HumaLOG] 37 units SQ TIDWM 12/19/16 03/28/18 Multivitamin [Multi-Day Vitamins] 1 each PO DAILY 12/19/16 03/28/18 Silver Sulfadiazine [Ssd] 1 appl TP BID 12/19/16 03/28/18 Simvastatin [Zocor] 80 mg PO HS 12/19/16 03/28/18 Amitriptyline HCl 25 mg PO DAILY 03/28/18 03/28/18 Lopid 600 mg PO BID 03/28/18 03/28/18 Lyrica 100 mg PO QID 03/28/18 03/28/18 Melatonin 10 mg PO HS 03/28/18 03/28/18 Previous Rx's Medication Instructions Recorded Bacitracin OINT PKT [Ak-Tracin] 1 appl TP DAILY #14 packet 12/10/17 Albuterol Sulfate [Albuterol 2 puff IH Q4HR #1 hfa.aer.ad 05/22/18 Inhaler] Allergies Allergy/AdvReac Type Severity Reaction Status Date / Time No Known Allergies Allergy Verified 03/27/18 10:42 Constitutional: Denies: fever, chills, weakness Eyes: Denies: vision change Cardiovascular: Denies: chest pain, palpitations, dyspnea on exertion, syncope Respiratory: Denies: cough, wheezes Gastrointestinal: Denies: abdominal pain Integumentary: Reports: lesions (left heel ulceration) Neurological: Reports: paresthesias (chronic diabetic neuropathy) Past Medical History - Past Medical History Medical history: Reports: diabetes, dialysis, GERD, hyperlipidemia, hypertension, peripheral artery disease, renal disease Surgical history: Reports: cholecystectomy, orthopedic, other, other Psychiatric history: Reports: no psych history - Social History Smoking Status: Never smoker Smokeless Tobacco Status: Yes Alcohol use: Reports: none Drug use: Reports: none Physical Exam - General Limitations: no limitations General appearance: alert, in no apparent distress - Head Head exam: atraumatic, normocephalic - Eye Eye exam: Present: normal appearance, PERRL, EOMI - ENT ENT exam: normal exam, normal oropharynx - Neck Neck exam: Present: normal inspection - Chest Chest inspection: Present: normal inspection, symmetric chest wall rise - Respiratory Respiratory exam: Present: normal lung sounds bilaterally, respiratory distress. Absent: wheezes, accessory muscle use - Cardiovascular Cardiovascular exam: Present: regular rate, normal heart sounds, systolic murmur - Abdominal Exam Abdominal exam: Present: soft, Non-Tender, normal bowel sounds. Absent: guarding - Expanded Upper Extremity Exam Hand exam: Present: other (digital amputations 2/2 PAD present in both hands. ) Vascular exam: Abnorm: capillary refill - Expanded Lower Extremity Exam Foot/toe exam: Present: deformity (Patient has a seeping, blue tinged, foul smelling, boggy ulcerative process encompassing his left calcaneus), calcaneal tenderness Course Course Narrative: Findings consistent with hypoglycemia which may be 2/2 severe diabetic ulcer of left calcaneus. Concern for pseudomonas sp., osteomyelitis. Patient provided combination of simple and complex sugars PO. Will reassess serum glucose shortly. Will work up with sepsis protocol, obtain imaging of LLE/foot for foriegn bodies or subcutaneous gas. - Reevaluation(s) Reevaluation #1: reassessment of serum glucose after initial food bolus is 86 Vital Signs Temperature 98.1 F 05/31/18 05:40 Pulse Rate 91 05/31/18 05:40 Respiratory Rate 20 05/31/18 05:40 Blood Pressure 145/75 05/31/18 05:40 O2 Sat by Pulse Oximetry 99 05/31/18 05:40 Temperature 98.1 F 05/31/18 05:40 Pulse Rate 91 05/31/18 05:40 Respiratory Rate 20 05/31/18 05:40 Blood Pressure 145/75 05/31/18 05:40 O2 Sat by Pulse Oximetry 99 05/31/18 05:40 Oxygen Delivery Oxygen Delivery Room Air
--- NOTE | 2018-05-31 06:23 | Emergency Department Note ---
Disposition Clinical Impression: Sepsis due to undetermined organism, Diabetic ulcer of ankle, Hypoglycemia associated with diabetes Disposition: Admitted As Inpatient Condition: Fair General Adult HPI - General Chief complaint: ED Nausea/Vomiting/Diarrhea Stated complaint: poss low blood sugar Time Seen by Provider: 05/31/18 05:37 Source: EMS Limitations: no limitations - History of Present Illness Pain Scale: 0 - Related Data Home Medications Medication Instructions Recorded Confirmed Acetaminophen [Tylenol] 500 mg PO BID PRN 05/31/18 05/31/18 Albuterol Sulfate [Ventolin Hfa] 2 puff IH Q6H PRN 05/31/18 05/31/18 Allopurinol [Zyloprim 100 MG] 100 mg PO DAILY 05/31/18 05/31/18 Amitriptyline [Elavil] 25 mg PO HS 05/31/18 05/31/18 Benzonatate [Tessalon] 100 mg PO TID 05/31/18 05/31/18 Calcium Acetate [Phos-LO] 1,334 mg PO TIDWM 05/31/18 05/31/18 Cholecalciferol (Vitamin D3) 50,000 unit PO QWEEK 05/31/18 05/31/18 [Vitamin D] Darbepoetin [Aranesp] 60 mcg SQ Q14D 05/31/18 05/31/18 DiphenhydraMINE [Benadryl] 25 mg PO QAM 05/31/18 05/31/18 DiphenhydraMINE [Benadryl] 50 mg PO HS 05/31/18 05/31/18 Furosemide [Lasix] 40 mg PO DAILY 05/31/18 05/31/18 Gemfibrozil [Lopid] 600 mg PO BIDWM 05/31/18 05/31/18 Guaifenesin [Mucinex] 1,200 mg PO BID 05/31/18 05/31/18 Insulin Glargine [Lantus] 45 unit SQ HS 05/31/18 05/31/18 Insulin LISPRO [HumaLOG] 36 units SQ TIDWM 05/31/18 05/31/18 Loperamide HCl [Imodium A-D] 2 mg PO PRN PRN MDD MAX 8 CAPS PER 05/31/18 05/31/18 DAY Loratadine [Allergy Relief] 10 mg PO DAILY 05/31/18 05/31/18 Mupirocin Calcium [Bactroban] 1 appl TP TID 05/31/18 05/31/18 Omeprazole [PriLOSEC] 20 mg PO DAILY 05/31/18 05/31/18 Ondansetron HCl [Zofran] 4 mg PO Q6H PRN 05/31/18 05/31/18 Pregabalin [Lyrica] 100 mg PO QAM 05/31/18 05/31/18 Pregabalin [Lyrica] 200 mg PO HS 05/31/18 05/31/18 RX: Biotin 300 mcg PO DAILY 05/31/18 05/31/18 RX: Diphenoxylate/Atropine 1 tab PO PRN PRN MDD MAX 6 TABS 05/31/18 05/31/18 [Lomotil 2.5 mg/0.025 mg] PER DAY RX: Docusate [Colace] 100 mg PO DAILY 05/31/18 05/31/18 RX: Melatonin 5 mg PO HS 05/31/18 05/31/18 RX: Multivitamin [One Daily 1 tab PO DAILY 05/31/18 05/31/18 Multivitamin] Riboflavin [Vitamin B-2] 25 mg PO DAILY 05/31/18 05/31/18 Sevelamer [Renvela] 800 mg PO TIDWM 05/31/18 05/31/18 Silver Sulfadiazine Cream 1 appl TP DAILY 05/31/18 05/31/18 [Silvadene] Simethicone [Gas-X] 80 mg PO WMHS 05/31/18 05/31/18 Tamsulosin HCl [Flomax] 0.4 mg PO DAILY 05/31/18 05/31/18 Allergies Allergy/AdvReac Type Severity Reaction Status Date / Time No Known Allergies Allergy Verified 05/31/18 06:59 Past Medical History - Past Medical History Medical history: Reports: diabetes, dialysis, GERD, hyperlipidemia, hypertension, peripheral artery disease, renal disease Surgical history: Reports: cholecystectomy, orthopedic, other, other Psychiatric history: Reports: no psych history - Social History Smoking Status: Never smoker Smokeless Tobacco Status: Yes Alcohol use: Reports: none Drug use: Reports: none Physical Exam - General Limitations: no limitations General appearance: alert, in no apparent distress Course Vital Signs Temperature 98.1 F 05/31/18 05:40 Pulse Rate 91 05/31/18 05:40 Respiratory Rate 20 05/31/18 05:40 Blood Pressure 145/75 05/31/18 05:40 O2 Sat by Pulse Oximetry 99 05/31/18 05:40 Temperature 97.6 F 05/31/18 19:07 Pulse Rate 81 05/31/18 19:07 Respiratory Rate 17 05/31/18 19:07 Blood Pressure 107/71 05/31/18 19:07 O2 Sat by Pulse Oximetry 96 05/31/18 11:02 Oxygen Delivery Oxygen Delivery Room Air Medical Decision Making - Lab Data Result diagrams: 05/31/18 05:58 05/31/18 05:58 Lab Results 05/31/18 05/31/18 05/31/18 Range/Units 05:58 05:58 06:00 WBC 8.9 (4.3-11.1) K/mcL RBC 3.70 L (4.19-5.50) M/mcL Hgb 12.1 L (12.9-16.9) g/dL Hct 35.8 L (37.5-50.1) % MCV 96.8 (83.0-100.0) fL MCH 32.7 (28.0-33.3) pg MCHC 33.8 (31.6-35.5) g/dL RDW 14.6 H (11.5-14.5) % Plt Count 273 (140-400) K/mcL MPV 9.2 L (9.4-12.4) fL Immature Gran % 0.6 (0-4) % Seg Neutrophils % 73.8 % Lymphocytes % 13.7 % Monocytes % 5.6 % Eosinophils % 5.7 % Basophils % 0.6 % Neutrophils # 6.6 (1.6-8.9) K/mcL Lymphocytes # 1.2 (0.6-4.6) K/mcL Monocytes # 0.5 (0.0-1.3) K/mcL Eosinophils # 0.5 (0.0-0.6) K/mcL Basophils # 0.1 (0.0-0.2) K/mcL ESR 89 H (0-10) mm/hr Sodium 137 (136-145) mEq/L Potassium 3.7 (3.5-5.1) mEq/L Chloride 103 (98-107) mEq/L Carbon Dioxide 24 (23-29) mEq/L BUN 12 (8-23) mg/dL Creatinine 3.27 H (0.70-1.30) mg/dL Est GFR ( Amer) 23 L (> 60) Est GFR (Non-Af Amer) 19 L (> 60) BUN/Creatinine Ratio 4 L (6-26) Glucose 76 (70-105) mg/dL POC Glucose (70-99) mg/dL Calculated Osmolality 283 (280-300) Lactic Acid (0.5-2.2) mmol/L Calcium 9.1 (8.6-10.3) mg/dL Magnesium 1.7 (1.6-2.6) mg/dL Total Bilirubin 0.4 (0.3-1.0) mg/dL Direct Bilirubin 0.0 (0.0-0.2) mg/dL Indirect Bilirubin 0.4 (0.0-1.2) mg/dL AST 16 (13-39) Units/L ALT 8 (7-52) Units/L Alkaline Phosphatase 69 (34-104) Units/L Troponin I < 0.03 (< 0.04) ng/mL C-Reactive Protein (Less than 10) mg/L Serum Total Protein 6.6 (6.4-8.9) g/dL Albumin 3.9 (3.5-5.7) g/dL Globulin 2.7 (2.4-3.5) g/dL Albumin/Globulin Ratio 1.4 (1.1-2.2) 05/31/18 05/31/18 05/31/18 Range/Units 06:00 06:25 09:38 WBC (4.3-11.1) K/mcL RBC (4.19-5.50) M/mcL Hgb (12.9-16.9) g/dL Hct (37.5-50.1) % MCV (83.0-100.0) fL MCH (28.0-33.3) pg MCHC (31.6-35.5) g/dL RDW (11.5-14.5) % Plt Count (140-400) K/mcL MPV (9.4-12.4) fL Immature Gran % (0-4) % Seg Neutrophils % % Lymphocytes % % Monocytes % % Eosinophils % % Basophils % % Neutrophils # (1.6-8.9) K/mcL Lymphocytes # (0.6-4.6) K/mcL Monocytes # (0.0-1.3) K/mcL Eosinophils # (0.0-0.6) K/mcL Basophils # (0.0-0.2) K/mcL ESR (0-10) mm/hr Sodium (136-145) mEq/L Potassium (3.5-5.1) mEq/L Chloride (98-107) mEq/L Carbon Dioxide (23-29) mEq/L BUN (8-23) mg/dL Creatinine (0.70-1.30) mg/dL Est GFR ( Amer) (> 60) Est GFR (Non-Af Amer) (> 60) BUN/Creatinine Ratio (6-26) Glucose (70-105) mg/dL POC Glucose (70-99) mg/dL Calculated Osmolality (280-300) Lactic Acid 1.4 1.3 (0.5-2.2) mmol/L Calcium (8.6-10.3) mg/dL Magnesium (1.6-2.6) mg/dL Total Bilirubin (0.3-1.0) mg/dL Direct Bilirubin (0.0-0.2) mg/dL Indirect Bilirubin (0.0-1.2) mg/dL AST (13-39) Units/L ALT (7-52) Units/L Alkaline Phosphatase (34-104) Units/L Troponin I (< 0.04) ng/mL C-Reactive Protein 28 H (Less than 10) mg/L Serum Total Protein (6.4-8.9) g/dL Albumin (3.5-5.7) g/dL Globulin (2.4-3.5) g/dL Albumin/Globulin Ratio (1.1-2.2) 05/31/18 Range/Units 10:52 WBC (4.3-11.1) K/mcL RBC (4.19-5.50) M/mcL Hgb (12.9-16.9) g/dL Hct (37.5-50.1) % MCV (83.0-100.0) fL MCH (28.0-33.3) pg MCHC (31.6-35.5) g/dL RDW (11.5-14.5) % Plt Count (140-400) K/mcL MPV (9.4-12.4) fL Immature Gran % (0-4) % Seg Neutrophils % % Lymphocytes % % Monocytes % % Eosinophils % % Basophils % % Neutrophils # (1.6-8.9) K/mcL Lymphocytes # (0.6-4.6) K/mcL Monocytes # (0.0-1.3) K/mcL Eosinophils # (0.0-0.6) K/mcL Basophils # (0.0-0.2) K/mcL ESR (0-10) mm/hr Sodium (136-145) mEq/L Potassium (3.5-5.1) mEq/L Chloride (98-107) mEq/L Carbon Dioxide (23-29) mEq/L BUN (8-23) mg/dL Creatinine (0.70-1.30) mg/dL Est GFR ( Amer) (> 60) Est GFR (Non-Af Amer) (> 60) BUN/Creatinine Ratio (6-26) Glucose (70-105) mg/dL POC Glucose 219 H (70-99) mg/dL Calculated Osmolality (280-300) Lactic Acid (0.5-2.2) mmol/L Calcium (8.6-10.3) mg/dL Magnesium (1.6-2.6) mg/dL Total Bilirubin (0.3-1.0) mg/dL Direct Bilirubin (0.0-0.2) mg/dL Indirect Bilirubin (0.0-1.2) mg/dL AST (13-39) Units/L ALT (7-52) Units/L Alkaline Phosphatase (34-104) Units/L Troponin I (< 0.04) ng/mL C-Reactive Protein (Less than 10) mg/L Serum Total Protein (6.4-8.9) g/dL Albumin (3.5-5.7) g/dL Globulin (2.4-3.5) g/dL Albumin/Globulin Ratio (1.1-2.2) Attestation Statement - Attestation Attestation: Resident Attestation: I examined this patient and my medical decision making was reviewed with the Resident Physician. I agree with the documented findings, disposition and treatment plan as described except to the extent set forth below. We independently had [id number] contact with the patient. Patient seen with Dr. Duarte. Please see her note for further details and disposition. Patient with end-stage renal disease presents to the emergency department for concern for low blood sugar. Initial blood sugar 46. The patient states that his blood sugar has been low over the past 3 mornings. He states his blood sugars have been fluctuating. He typically gets dialysis on Sunday with Dr. Whitley. Has been compliant with medications. Patient on review of systems endorses generalized malice with recent emergency department visit and diagnosis of bronchitis. The patient does have history of ulcer disease. He states his left heel has been draining fluid recently. Chart review does show that he has a previous left heel wound which was healing appropriately with associated eschar. Today his heel is soft and boggy with purulent drainage. The patient will undergo further evaluation for possible osteomyelitis. Blood cultures, wound culture, lactate ordered. Fluids limited secondary to end-stage renal disease. Patient will likely receive Zosyn and vancomycin and require admission. Blood work is pending. Patient signed out to Dr. Smith. Repeat blood sugar at 6:33 AM is 86. Meal tray has been ordered.
[2018-05-31] MEDS ORDERED: Piperacillin/Tazobactam 3.375 GM in 0.9 % Sodium Chloride Mini Bag 100 ML IVPB ONE (06:32)
[2018-05-31 06:39] LABS: Basophils # 0.1 K/mcL (0.0-0.2); Basophils % 0.6 %; Eosinophils # 0.5 K/mcL (0.0-0.6); Eosinophils % 5.7 %; Hematocrit 35.8 % (37.5-50.1); Hemoglobin 12.1 g/dL (12.9-16.9); Immature Granulocytes % 0.6 % (0-4); Lymphocytes # 1.2 K/mcL (0.6-4.6); Lymphocytes % 13.7 %; Mean Corpuscular HGB Conc 33.8 g/dL (31.6-35.5); Mean Corpuscular Hemoglobin 32.7 pg (28.0-33.3); Mean Corpuscular Volume 96.8 fL (83.0-100.0); Mean Platelet Volume 9.2 fL (9.4-12.4); Monocytes # 0.5 K/mcL (0.0-1.3); Monocytes % 5.6 %; Neutrophils # 6.6 K/mcL (1.6-8.9); Platelet Count 273 K/mcL (140-400); Red Cell Distribution Width 14.6 % (11.5-14.5); Segmented Neutrophils % 73.8 %
[2018-05-31 07:00] LABS: Alanine Aminotransferase 8 Units/L (7-52); Albumin 3.9 g/dL (3.5-5.7); Albumin/Globulin Ratio 1.4 (1.1-2.2); Alkaline Phosphatase 69 Units/L (34-104); Aspartate Amino Transferase 16 Units/L (13-39); BUN/Creatinine Ratio 4 (6-26); Bilirubin,Indirect 0.4 mg/dL (0.0-1.2); Bilirubin,Total 0.4 mg/dL (0.3-1.0); Blood Urea Nitrogen 12 mg/dL (8-23); Calcium 9.1 mg/dL (8.6-10.3); Carbon Dioxide 24 mEq/L (23-29); Chloride 103 mEq/L (98-107); Globulin 2.7 g/dL (2.4-3.5); Glucose 76 mg/dL (70-105); Magnesium 1.7 mg/dL (1.6-2.6); Osmolality,Calculated 283 (280-300); Potassium 3.7 mEq/L (3.5-5.1); Sodium 137 mEq/L (136-145); Total Protein 6.6 g/dL (6.4-8.9); Troponin I < 0.03 ng/mL (< 0.04); eGFR For Non-African Americans 19 (> 60)
--- NOTE | 2018-05-31 07:25 | Emergency Department Note ---
Disposition Clinical Impression: Sepsis due to undetermined organism, Diabetic ulcer of ankle, Hypoglycemia associated with diabetes Disposition: Admitted As Inpatient Condition: Fair Instructions: Diabetic Hypoglycemia (ED) Referrals: Alex Gan MD [Primary Care Provider] - Forms: ED Satisfaction Letter Time of Disposition: 08:20 General Adult HPI - General Chief complaint: ED Nausea/Vomiting/Diarrhea Stated complaint: poss low blood sugar Time Seen by Provider: 05/31/18 05:37 Source: EMS Limitations: no limitations Nursing Notes Reviewed: Yes Vital Signs Reviewed: Yes - History of Present Illness HPI Narrative: 67-year-old male history of insulin dependent diabetes end-stage renal disease on dialysis presents with left ear bogginess odor of necrosis. Chem-7 blood sugar 40. Was seen earlier in the week treated and released after he had an elevated lactic acid which resolved with fluid. Was initially seen by the [facility] medicine attending Nav Blandon. Please see copy of his note patient was signed out at 7 AM to my care I was to follow up results the labs and the x- rays and get the patient admitted patient ready gotten thank and Zosyn IV. We will concerned about osteomyelitis x-ray per radiology shows no overt evidence of osteomyelitis but a CT scan later might otherwise show different. Patient is resting comfortably requested a breakfast tray. Admission disposition pending. Location: lower extremity Pain Scale: 0 Improves with: eating Associated symptoms: Reports: confusion, diaphoresis, malaise, nausea/vomiting - Related Data Home Medications Medication Instructions Recorded Confirmed Acetaminophen [Tylenol] 500 mg PO BID PRN 05/31/18 05/31/18 Albuterol Sulfate [Ventolin Hfa] 2 puff IH Q6H PRN 05/31/18 05/31/18 Allopurinol [Zyloprim 100 MG] 100 mg PO DAILY 05/31/18 05/31/18 Amitriptyline [Elavil] 50 mg PO HS 05/31/18 05/31/18 Benzonatate [Tessalon] 100 mg PO TID 05/31/18 05/31/18 Biotin 300 mcg PO DAILY 05/31/18 05/31/18 Cholecalciferol (Vitamin D3) 50,000 unit PO QWEEK 05/31/18 05/31/18 [Vitamin D] Darbepoetin [Aranesp] 60 mcg SQ Q14D 05/31/18 05/31/18 DiphenhydraMINE [Benadryl] 25 mg PO QAM 05/31/18 05/31/18 DiphenhydraMINE [Benadryl] 50 mg PO HS 05/31/18 05/31/18 Diphenoxylate/Atropine [Lomotil 1 tab PO PRN PRN MDD MAX 6 TABS 05/31/18 05/31/18 2.5 mg/0.025 mg] PER DAY Docusate [Colace] 100 mg PO DAILY 05/31/18 05/31/18 Furosemide [Lasix] 40 mg PO DAILY 05/31/18 05/31/18 Gemfibrozil [Lopid] 600 mg PO BIDWM 05/31/18 05/31/18 Guaifenesin [Mucinex] 1,200 mg PO BID 05/31/18 05/31/18 Insulin Glargine [Lantus] 45 unit SQ HS 05/31/18 05/31/18 Insulin LISPRO [HumaLOG] 36 units SQ TIDWM 05/31/18 05/31/18 Loperamide HCl [Imodium A-D] 2 mg PO PRN PRN MDD MAX 8 CAPS PER 05/31/18 05/31/18 DAY Loratadine [Allergy Relief] 10 mg PO DAILY 05/31/18 05/31/18 Melatonin 5 mg PO HS 05/31/18 05/31/18 Multivitamin [One Daily 1 tab PO DAILY 05/31/18 05/31/18 Multivitamin] Mupirocin Calcium [Bactroban] 1 appl TP TID 05/31/18 05/31/18 Omeprazole [PriLOSEC] 20 mg PO DAILY 05/31/18 05/31/18 Ondansetron HCl [Zofran] 4 mg PO Q6H PRN 05/31/18 05/31/18 Pregabalin [Lyrica] 100 mg PO QAM 05/31/18 05/31/18 Pregabalin [Lyrica] 200 mg PO HS 05/31/18 05/31/18 Riboflavin [Vitamin B-2] 25 mg PO DAILY 05/31/18 05/31/18 Sevelamer [Renvela] 800 mg PO TIDWM 05/31/18 05/31/18 Silver Sulfadiazine Cream 1 appl TP DAILY 05/31/18 05/31/18 [Silvadene] Simethicone [Gas-X] 80 mg PO WMHS 05/31/18 05/31/18 Tamsulosin HCl [Flomax] 0.4 mg PO DAILY 05/31/18 05/31/18 Allergies Allergy/AdvReac Type Severity Reaction Status Date / Time No Known Allergies Allergy Verified 05/31/18 06:59 Constitutional: Denies: fever, chills, weakness Eyes: Denies: vision change Cardiovascular: Denies: chest pain, palpitations, dyspnea on exertion, syncope Respiratory: Denies: cough, wheezes Gastrointestinal: Denies: abdominal pain Integumentary: Reports: lesions (left heel ulceration) Neurological: Reports: paresthesias (chronic diabetic neuropathy) Past Medical History - Past Medical History Medical history: Reports: diabetes, dialysis, GERD, hyperlipidemia, hypertension, peripheral artery disease, renal disease Surgical history: Reports: cholecystectomy, orthopedic, other, other Psychiatric history: Reports: no psych history - Social History Smoking Status: Never smoker Smokeless Tobacco Status: Yes Alcohol use: Reports: none Drug use: Reports: none Physical Exam - General Limitations: no limitations General appearance: alert, in no apparent distress Course - Reevaluation(s) Reevaluation #1: Discussed case with the hospitalist. She agreed to accept the patient for admission. Orders placed. Patient stable Time: 08:20 Vital Signs Temperature 98.1 F 05/31/18 05:40 Pulse Rate 91 05/31/18 05:40 Respiratory Rate 20 05/31/18 05:40 Blood Pressure 145/75 05/31/18 05:40 O2 Sat by Pulse Oximetry 99 05/31/18 05:40 Temperature 98.1 F 05/31/18 05:40 Pulse Rate 91 05/31/18 07:21 Respiratory Rate 12 05/31/18 07:21 Blood Pressure 162/82 05/31/18 07:21 O2 Sat by Pulse Oximetry 97 05/31/18 07:54 Oxygen Delivery Oxygen Delivery Room Air Medical Decision Making - Lab Data Result diagrams: 05/31/18 05:58 05/31/18 05:58 Lab Results 05/31/18 05/31/18 05/31/18 Range/Units 05:58 05:58 06:00 WBC 8.9 (4.3-11.1) K/mcL RBC 3.70 L (4.19-5.50) M/mcL Hgb 12.1 L (12.9-16.9) g/dL Hct 35.8 L (37.5-50.1) % MCV 96.8 (83.0-100.0) fL MCH 32.7 (28.0-33.3) pg MCHC 33.8 (31.6-35.5) g/dL RDW 14.6 H (11.5-14.5) % Plt Count 273 (140-400) K/mcL MPV 9.2 L (9.4-12.4) fL Immature Gran % 0.6 (0-4) % Seg Neutrophils % 73.8 % Lymphocytes % 13.7 % Monocytes % 5.6 % Eosinophils % 5.7 % Basophils % 0.6 % Neutrophils # 6.6 (1.6-8.9) K/mcL Lymphocytes # 1.2 (0.6-4.6) K/mcL Monocytes # 0.5 (0.0-1.3) K/mcL Eosinophils # 0.5 (0.0-0.6) K/mcL Basophils # 0.1 (0.0-0.2) K/mcL ESR 89 H (0-10) mm/hr Sodium 137 (136-145) mEq/L Potassium 3.7 (3.5-5.1) mEq/L Chloride 103 (98-107) mEq/L Carbon Dioxide 24 (23-29) mEq/L BUN 12 (8-23) mg/dL Creatinine 3.27 H (0.70-1.30) mg/dL Est GFR ( Amer) 23 L (> 60) Est GFR (Non-Af Amer) 19 L (> 60) BUN/Creatinine Ratio 4 L (6-26) Glucose 76 (70-105) mg/dL Calculated Osmolality 283 (280-300) Lactic Acid (0.5-2.2) mmol/L Calcium 9.1 (8.6-10.3) mg/dL Magnesium 1.7 (1.6-2.6) mg/dL Total Bilirubin 0.4 (0.3-1.0) mg/dL Direct Bilirubin 0.0 (0.0-0.2) mg/dL Indirect Bilirubin 0.4 (0.0-1.2) mg/dL AST 16 (13-39) Units/L ALT 8 (7-52) Units/L Alkaline Phosphatase 69 (34-104) Units/L Troponin I < 0.03 (< 0.04) ng/mL C-Reactive Protein (Less than 10) mg/L Serum Total Protein 6.6 (6.4-8.9) g/dL Albumin 3.9 (3.5-5.7) g/dL Globulin 2.7 (2.4-3.5) g/dL Albumin/Globulin Ratio 1.4 (1.1-2.2) 05/31/18 05/31/18 Range/Units 06:00 06:25 WBC (4.3-11.1) K/mcL RBC (4.19-5.50) M/mcL Hgb (12.9-16.9) g/dL Hct (37.5-50.1) % MCV (83.0-100.0) fL MCH (28.0-33.3) pg MCHC (31.6-35.5) g/dL RDW (11.5-14.5) % Plt Count (140-400) K/mcL MPV (9.4-12.4) fL Immature Gran % (0-4) % Seg Neutrophils % % Lymphocytes % % Monocytes % % Eosinophils % % Basophils % % Neutrophils # (1.6-8.9) K/mcL Lymphocytes # (0.6-4.6) K/mcL Monocytes # (0.0-1.3) K/mcL Eosinophils # (0.0-0.6) K/mcL Basophils # (0.0-0.2) K/mcL ESR (0-10) mm/hr Sodium (136-145) mEq/L Potassium (3.5-5.1) mEq/L Chloride (98-107) mEq/L Carbon Dioxide (23-29) mEq/L BUN (8-23) mg/dL Creatinine (0.70-1.30) mg/dL Est GFR ( Amer) (> 60) Est GFR (Non-Af Amer) (> 60) BUN/Creatinine Ratio (6-26) Glucose (70-105) mg/dL Calculated Osmolality (280-300) Lactic Acid 1.4 (0.5-2.2) mmol/L Calcium (8.6-10.3) mg/dL Magnesium (1.6-2.6) mg/dL Total Bilirubin (0.3-1.0) mg/dL Direct Bilirubin (0.0-0.2) mg/dL Indirect Bilirubin (0.0-1.2) mg/dL AST (13-39) Units/L ALT (7-52) Units/L Alkaline Phosphatase (34-104) Units/L Troponin I (< 0.04) ng/mL C-Reactive Protein 28 H (Less than 10) mg/L Serum Total Protein (6.4-8.9) g/dL Albumin (3.5-5.7) g/dL Globulin (2.4-3.5) g/dL Albumin/Globulin Ratio (1.1-2.2)
[2018-05-31] MEDS ORDERED: Naloxone 0.4 MG/ML INJ IVP PRN (08:40)
[2018-05-31] MEDS ORDERED: Acetaminophen 325 MG TABLET PO PRN (08:40)
[2018-05-31] MEDS ORDERED: *HR* HYDROcodone/Acet 5/325 mg TABLET PO PRN (08:40)
[2018-05-31] MEDS ORDERED: *HR* OxyCODONE Immed Rel 5 MG TABLET PO PRN (08:40)
[2018-05-31] MEDS ORDERED: Pregabalin 50 MG CAPSULE PO SCH ×2 (09:00→21:00)
[2018-05-31] MEDS ORDERED: (Biotin [Biotin] 300 MCG) PO SCH (09:00)
[2018-05-31] MEDS ORDERED: Vancomycin 1 EACH in 0.9 % Sodium Chloride 250 ML IVPB SCH (09:00)
--- NOTE | 2018-05-31 09:06 | Electrocardiograph Report ---
[facility] Test Date: 2018-05-31 Pat Name: Arnav Brooks Department: EXAM2 Room: 2A Gender: M [place] Applier: : [id number] Requested By: Nav Blandon Order Number: [id number] Reading MD: Jose Guadalupe Richter Measurements Intervals [place] Rate: 93 P: 63 [place]: 194 QRS: 54 QRSD: 92 T: 40 QT: 374 QTc: 466 Interpretive Statements Sinus rhythm Borderline T wave abnormalities Electronically Signed On 05-31-2018 9:05:04 EST by Jose Guadalupe Richter
[2018-05-31] MEDS ORDERED: Dextrose Gel 15 GM/37.5 ML TUBE PO PRN ×2 (09:24)
[2018-05-31] MEDS ORDERED: *HR* Dextrose 50 % in Water (Syg) 50 ML SYRINGE IVP PRN (09:24)
[2018-05-31] MEDS ORDERED: D5% in Water 1,000 ML IVC PRN (09:24)
[2018-05-31] MEDS ORDERED: Vancomycin 500 MG in 0.9 % Sodium Chloride Mini Bag 100 ML IVPB ONE ×2 (09:37→19:00)
[2018-05-31] MEDS: Silver Sulfadiazine 50 GM TUBE TP SCH (11:08)
[2018-05-31] MEDS: Benzonatate 100 MG CAPSULE PO SCH ×3 (11:10→21:50)
[2018-05-31] MEDS: Furosemide 40 MG TABLET PO SCH (11:10)
[2018-05-31] MEDS: Cholecalciferol (D-3) 1,000 UNIT TABLET PO SCH (11:10)
[2018-05-31] MEDS: Pregabalin 75 MG CAPSULE PO SCH (11:16)
[2018-05-31] MEDS ORDERED: Insulin LISPRO 300 UNITS/3 ML VIAL SQ SCH (12:00)
[2018-05-31] MEDS: Simethicone 80 MG TAB.CHEW PO SCH ×3 (12:34→21:50)
--- NOTE | 2018-05-31 13:19 | Internal Med History&Physical ---
Date of Encounter: 05/31/18 Time of Encounter: 10:00 Internal Medicine - H&P: HPI Chief complaint: Left heel ulcer Admitted From: Emergency Dept Plans for Post Hospital Care: Home History of present illness: Mr. Brooks is a 67 year old male PMH significant for ESRD on M/W/F HD, IDDM, HTN, HLD, GERD and PAD who presented to ER with generalized weakness and fatigue with concerns of hypoglycemia. His blood sugar was @ 45 in the ER. Later pt also c/o worsening swelling, open wound with foul odor discharge in his left heel from last 10 days. Patient denied any trauma. He was admitted in the hospital for further evaluation regarding this. His foot x-ray showed soft tissue ulcer overlaying the calcaneus with no evidence of osteomyelitis. Patient is alert, awake, oriented times 3. Denied any fever. Denied any care for that wound recently. He did have completely healed ulcer over Rt heel. Past Med Surg Social Fam HX - Past Medical History Medical history: diabetes, dialysis, GERD, hyperlipidemia, hypertension, peripheral artery disease, renal disease Additional medical history: gout Psychiatric history: no psych history - Past Surgical History Surgical History: cholecystectomy, orthopedic, other, other Additional surgical history: amputation fingers, carpal tunnel,shoulder - Social History Smoking Status: Never smoker Smokeless Tobacco Status: No Alcohol use: none Drug use: none - Family History Mother Living Status: Father Adopted: No Living Status: Hx Family Endocrine Disorder: Yes Internal Medicine - H&P: Meds Acetaminophen [Tylenol] 500 mg PO BID PRN 05/31/18 [History] Albuterol Sulfate [Ventolin Hfa] 2 puff IH Q6H PRN 05/31/18 [History] Allopurinol [Zyloprim 100 MG] 100 mg PO DAILY 05/31/18 [History] Amitriptyline [Elavil] 50 mg PO HS 05/31/18 [History] Benzonatate [Tessalon] 100 mg PO TID 05/31/18 [History] Biotin 300 mcg PO DAILY 05/31/18 [History] Cholecalciferol (Vitamin D3) [Vitamin D] 50,000 unit PO QWEEK 05/31/18 [History] Darbepoetin [Aranesp] 60 mcg SQ Q14D 05/31/18 [History] DiphenhydraMINE [Benadryl] 25 mg PO QAM 05/31/18 [History] DiphenhydraMINE [Benadryl] 50 mg PO HS 05/31/18 [History] Diphenoxylate/Atropine [Lomotil 2.5 mg/0.025 mg] 1 tab PO PRN PRN MDD MAX 6 TABS PER DAY 05/31/18 [History] Docusate [Colace] 100 mg PO DAILY 05/31/18 [History] Furosemide [Lasix] 40 mg PO DAILY 05/31/18 [History] Gemfibrozil [Lopid] 600 mg PO BIDWM 05/31/18 [History] Guaifenesin [Mucinex] 1,200 mg PO BID 05/31/18 [History] Insulin Glargine [Lantus] 45 unit SQ HS 05/31/18 [History] Insulin LISPRO [HumaLOG] 36 units SQ TIDWM 05/31/18 [History] Loperamide HCl [Imodium A-D] 2 mg PO PRN PRN MDD MAX 8 CAPS PER DAY 05/31/18 [History] Loratadine [Allergy Relief] 10 mg PO DAILY 05/31/18 [History] Melatonin 5 mg PO HS 05/31/18 [History] Multivitamin [One Daily Multivitamin] 1 tab PO DAILY 05/31/18 [History] Mupirocin Calcium [Bactroban] 1 appl TP TID 05/31/18 [History] Omeprazole [PriLOSEC] 20 mg PO DAILY 05/31/18 [History] Ondansetron HCl [Zofran] 4 mg PO Q6H PRN 05/31/18 [History] Pregabalin [Lyrica] 100 mg PO QAM 05/31/18 [History] Pregabalin [Lyrica] 200 mg PO HS 05/31/18 [History] Riboflavin [Vitamin B-2] 25 mg PO DAILY 05/31/18 [History] Sevelamer [Renvela] 800 mg PO TIDWM 05/31/18 [History] Silver Sulfadiazine Cream [Silvadene] 1 appl TP DAILY 05/31/18 [History] Simethicone [Gas-X] 80 mg PO WMHS 05/31/18 [History] Tamsulosin HCl [Flomax] 0.4 mg PO DAILY 05/31/18 [History] Allergy/AdvReac Type Severity Reaction Status Date / Time No Known Allergies Allergy Verified 05/31/18 06:59 All Systems PM: A 10-system review of systems was performed and is negative for pertinent findings except as documented above in the HPI. Review of systems: All the systems are reviewed everything is benign except the systems and symptoms I mentioned in the history of present illness - Constitutional Vitals: Temp Pulse Resp BP Pulse Ox 98.4 F 87 16 187/81 96 05/31/18 11:02 05/31/18 11:02 05/31/18 11:02 05/31/18 11:02 05/31/18 11:02 General appearance: Present: cooperative, A&O X 3, answers questions ap propriately Exam: See below - Head Head exam: Present: atraumatic, normal inspection - Neck Neck exam general surgery: Present: supple - Respiratory Respiratory exam: Present: decreased breath sounds. Absent: rales, respiratory distress, rhonchi, wheezes - Cardiovascular Cardiovascular exam: Present: RRR, +S1, +S2. Absent: tachycardia - GI/Abdominal GI/Abdominal exam: Present: normal bowel sounds, soft. Absent: rebound, rigid, tenderness - Extremities Exam Extremities exam: Present: tenderness (Left heel). Absent: calf tenderness, pedal edema Additional comments: He does have small open wound on the left heel with foul smell discharge. Mild erythema noticed around the ulcer is. Whole left heel feels soft and boggy concerning for possible abscess - Back Exam Back exam: Absent: CVA tenderness (L), CVA tenderness (R) - Neurological Exam Neurological exam: Present: alert, oriented X3 - Psychiatric Psychiatric exam: Present: normal affect, normal mood Internal Med - H&P Results - Labs CBC & Chem 7: 05/31/18 05:58 05/31/18 05:58 Labs: Short CBC 05/31/18 Range/Units 05:58 WBC 8.9 (4.3-11.1) K/mcL Hgb 12.1 L (12.9-16.9) g/dL Hct 35.8 L (37.5-50.1) % Plt Count 273 (140-400) K/mcL Neutrophils # 6.6 (1.6-8.9) K/mcL BMP 05/31/18 05:58 Sodium 137 Potassium 3.7 Chloride 103 Carbon Dioxide 24 BUN 12 Creatinine 3.27 H Glucose 76 Calcium 9.1 Cardiac Enzymes 05/31/18 Range/Units 05:58 Troponin I < 0.03 (< 0.04) ng/mL Liver Function 05/31/18 Range/Units 05:58 Total Bilirubin 0.4 (0.3-1.0) mg/dL Direct Bilirubin 0.0 (0.0-0.2) mg/dL AST 16 (13-39) Units/L ALT 8 (7-52) Units/L Alkaline Phosphatase 69 (34-104) Units/L Albumin 3.9 (3.5-5.7) g/dL - Impressions ITS Impressions Foot X-Ray 05/31/18 06:00 IMPRESSION: Soft tissue ulcer seen overlying the calcaneus with no evidence for underlying osteomyelitis. Severe atherosclerotic disease. Bony reabsorption of the distal phalanx of the great toe since the prior examination of 2007 likely secondary to peripheral vascular disease. D/ / 05/31/2018 07:12:20 Mike Roman [facility] Interpreting Provider: Mike Roman MD - Assessment and plan (1) Ulcer of left heel Current Visit: Yes Status: Acute Assessment and plan: Admit the pt into tele Concerning for abscess at Left heel His ESR @ 89, CRP @ 28 No signs of osteomyelitis on foot x ray will order CT of Left heel Wound cx ordered started him on Zosyn and Vancomycin Renally dosed Consulted alteration manager for further eval..may need I & D Qualifiers: Qualified Code(s): L97.429 - Non-pressure chronic ulcer of left heel and midfoot with unspecified severity (2) Hypoglycemia associated with diabetes Current Visit: Yes Status: Acute Assessment and plan: Pt has been taking too much of Insulin at home Lantus @ 45 HS, Lispro 36 U TID his HbA1C from 04/02 was @ 7.0 only so changed his Levemir to 15 U BID d/c pre meal insulin for now started on ISS medium + ADA diet (3) ESRD (end stage renal disease) on dialysis Current Visit: No Status: Chronic Assessment and plan: He gets HD on M/W/F Need HD today consulted Nephro (4) Malnutrition Current Visit: No Status: Chronic Assessment and plan: Does have mild to moderate PCM Nutrition consulted Qualifiers: Protein-calorie malnutrition severity: moderate Qualified Code(s): E44.0 - Moderate protein-calorie malnutrition (5) Depression Current Visit: Yes Status: Chronic Assessment and plan: Resumed home medications Qualifiers: Depression Type: unspecified Qualified Code(s): F32.9 - Major depressive disorder, single episode, unspecified (6) HTN (hypertension) Current Visit: Yes Status: Acute Assessment and plan: Stable with current regimen Qualifiers: Hypertension type: essential hypertension Qualified Code(s): I10 - Essential (primary) hypertension (7) HLD (hyperlipidemia) Current Visit: Yes Status: Acute Assessment and plan: Resumed home medications Qualifiers: Hyperlipidemia type: unspecified Qualified Code(s): E78.5 - Hyperlipidemia, unspecified - Time Spent With Patient Total time spent is greater than 50% in coordination of care (as documented) at patient's floor/unit and/or counseling patient:
[2018-05-31] MEDS ORDERED: 0.9 % Sodium Chloride 250 ML IVC PRN (13:30)
[2018-05-31] MEDS ORDERED: 0.9 % Sodium Chloride 1,000 ML PRIME SCH (13:30)
--- NOTE | 2018-05-31 14:14 | Nephrology Consult Note ---
Date of Encounter: 05/31/18 Time of Encounter: 14:07 Assessment and Plan (1) ESRD (end stage renal disease) on dialysis Current Visit: No Status: Chronic End-stage renal disease on dialysis Mondays, Wednesdays, Fridays. 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 Restrepo, however he is now retired and he now sees a new physician that bought Dr. Restrepo's practice. He has been on dialysis for a little over 3 years with 2 of those years on peritoneal dialysis and now on hemodialysis. He goes to dialysis behind the [facility] at [facility]. He has left AV fistula access. His sessions are 3 hours. His dry weight is 210 pounds. He still makes urine a few times a week. He takes Aranesp. Etiology of his end-stage renal disease he believes is diabetes. Plan: -will schedule him for dialysis today to stay with his normal schedule. Will schedule him for dialysis on Sunday should he still be here. -Continue renal protective strategies such as avoid nephrotoxic agents and renal dose medications -monitor I&O and daily weights (2) Ulcer of left heel Current Visit: Yes Status: Acute Per primary team Qualifiers: Qualified Code(s): L97.429 - Non-pressure chronic ulcer of left heel and midfoot with unspecified severity History of Present Illness - Reason for Consult Consult date: 05/31/18 end stage renal disease Requesting physician: Abel Liu - Chief Complaint Left heel ulcer - History of Present Illness Mr. Brooks is a 67 year old male with PMH of ESRD, diabetes, hypertension, gout, PAD who presented to [facility] due to hypoglycemia with fatigue and weakness. Nephrology was consulted due to end stage renal disease on dialysis. Upon examination of the patient he reported that when EMS picked him up to take him to dialysis today he was feeling weak and fatigue so when his glucose was checked it was 42. He was then taken to the ED. He was also found to have a left heel ulcer. The patient reported that he used to follow with the plant taxonomy teacher Dr. Restrepo, however he is now retired and he now sees a new physician that bought Dr. Restrepo's practice. He has been on dialysis for a little over 3 years with 2 of those years on peritoneal dialysis and now on hemodialysis. He goes to dialysis behind the [facility] at [facility] on Mondays, Wednesdays, Fridays. He has left AV fistula access. His sessions are 3 hours. His dry weight is 210 pounds. He still makes urine about 500 mL a few times a week. He has amputations of all his fingers up to his PIP joint that he says is secondary to gout. He is also wheelchair-bound due to gout. He denies alcohol, drugs, smoking use. Past Med Surg Social Fam HX - Past Medical History Attestation: Yes The following information was validated with the patient. Source: patient Medical history: diabetes, dialysis, GERD, hyperlipidemia, hypertension, peripheral artery disease, renal disease Additional medical history: gout Psychiatric history: no psych history - Past Surgical History Surgical History: cholecystectomy, orthopedic, other, other Additional surgical history: amputation fingers, carpal tunnel,shoulder - Social History Smoking Status: Never smoker Smokeless Tobacco Status: No Alcohol use: none Drug use: none - Family History Mother Living Status: Father Adopted: No Living Status: Hx Family Endocrine Disorder: Yes Medications and Allergies Acetaminophen [Tylenol] 500 mg PO BID PRN 05/31/18 [History] Albuterol Sulfate [Ventolin Hfa] 2 puff IH Q6H PRN 05/31/18 [History] Allopurinol [Zyloprim 100 MG] 100 mg PO DAILY 05/31/18 [History] Amitriptyline [Elavil] 50 mg PO HS 05/31/18 [History] Benzonatate [Tessalon] 100 mg PO TID 05/31/18 [History] Biotin 300 mcg PO DAILY 05/31/18 [History] Cholecalciferol (Vitamin D3) [Vitamin D] 50,000 unit PO QWEEK 05/31/18 [History] Darbepoetin [Aranesp] 60 mcg SQ Q14D 05/31/18 [History] DiphenhydraMINE [Benadryl] 25 mg PO QAM 05/31/18 [History] DiphenhydraMINE [Benadryl] 50 mg PO HS 05/31/18 [History] Diphenoxylate/Atropine [Lomotil 2.5 mg/0.025 mg] 1 tab PO PRN PRN MDD MAX 6 TABS PER DAY 05/31/18 [History] Docusate [Colace] 100 mg PO DAILY 05/31/18 [History] Furosemide [Lasix] 40 mg PO DAILY 05/31/18 [History] Gemfibrozil [Lopid] 600 mg PO BIDWM 05/31/18 [History] Guaifenesin [Mucinex] 1,200 mg PO BID 05/31/18 [History] Insulin Glargine [Lantus] 45 unit SQ HS 05/31/18 [History] Insulin LISPRO [HumaLOG] 36 units SQ TIDWM 05/31/18 [History] Loperamide HCl [Imodium A-D] 2 mg PO PRN PRN MDD MAX 8 CAPS PER DAY 05/31/18 [History] Loratadine [Allergy Relief] 10 mg PO DAILY 05/31/18 [History] Melatonin 5 mg PO HS 05/31/18 [History] Multivitamin [One Daily Multivitamin] 1 tab PO DAILY 05/31/18 [History] Mupirocin Calcium [Bactroban] 1 appl TP TID 05/31/18 [History] Omeprazole [PriLOSEC] 20 mg PO DAILY 05/31/18 [History] Ondansetron HCl [Zofran] 4 mg PO Q6H PRN 05/31/18 [History] Pregabalin [Lyrica] 100 mg PO QAM 05/31/18 [History] Pregabalin [Lyrica] 200 mg PO HS 05/31/18 [History] Riboflavin [Vitamin B-2] 25 mg PO DAILY 05/31/18 [History] Sevelamer [Renvela] 800 mg PO TIDWM 05/31/18 [History] Silver Sulfadiazine Cream [Silvadene] 1 appl TP DAILY 05/31/18 [History] Simethicone [Gas-X] 80 mg PO WMHS 05/31/18 [History] Tamsulosin HCl [Flomax] 0.4 mg PO DAILY 05/31/18 [History] Allergy/AdvReac Type Severity Reaction Status Date / Time No Known Allergies Allergy Verified 05/31/18 06:59 Review of Systems Constitutional: fatigue, no chills, no fever(s), no frequent falls Nose, mouth and throat: no headache(s) Cardiovascular: no chest pain, no edema, no leg edema, no palpitations Respiratory: no cough, no dyspnea, no wheezing Gastrointestinal: no abdominal pain, no nausea, no vomiting Genitourinary Male: no dysuria, no hematuria, no urinary frequency Integumentary: skin ulcer (Left heel ulcer), no pruritus, no rash Neurological: no confusion, no frequent falls Endocrine: fatigue Exam - Vital Signs Vital signs: Initial Vital Signs Temp Pulse Resp BP Pulse Ox 98.1 F 91 20 145/75 99 05/31/18 05:40 05/31/18 05:40 05/31/18 05:40 05/31/18 05:40 05/31/18 05:40 Vital Signs - Last 8 Hours Temp Pulse Resp BP Pulse Ox 05/31/18 11:02 98.4 F 87 16 187/81 96 05/31/18 08:42 20 153/92 05/31/18 07:54 97 05/31/18 07:21 91 12 162/82 100 Intake and Output 05/30/18 05/31/18 05/31/18 23:59 07:59 15:59 Intake Total 480 / 480 Output Total 0 / 0 Balance 480 / 480 Intake: IV Fluids 450 / 450 Zosyn 3.375 GM In 0.9 % Sodium 100 / 100 Chloride (Mini-Bag +) 100 ML @ 25 mls/hr IVPB ONCE ONE Rx#: [id number] Vancocin 1,000 MG In 0.9 % 250 / 250 Sodium Chloride 250 ML @ 167 mls/hr IVPB ONCE ONE Rx#: [id number] Vancocin 500 MG In 0.9 % Sodium 100 / 100 Chloride (Mini-Bag +) 100 ML @ 100 mls/hr IVPB ONCE ONE Rx#: [id number] Oral 30 / 30 Output: Urine 0 / 0 Other: Weight 103.929 kg Blood Glucose* 219 Patient Weight 05/31/18 23:59 Weight 103.929 kg - General Appearance Exam: Gen.: Vitals noted. No acute distress. AAOx3 HEENT: oropharynx clear, Normocephalic, atraumatic Neck: Supple. No adenopathy. Cardiac: RRR, no murmur, +S1/S2, no bilateral lower extremity edema Pulmonary: CTA bilaterally, no wheezes, rales or rhonchi, equal chest expansion Abdomen: soft, nontender, Bowel sounds noted, no guarding MSK: amputations of all his fingers up to his PIP joint, left AV fistula that has a bruit and a thrill, left heel ulcer about the size of a quarter and has yellow purulence overlaying Extremities: nontender calf, no cyanosis or clubbing Neuro: A&Ox3, moves all extremities, no focal deficits Psych: Appropriate mood and behavior Results - Lab Results 05/31/18 05:58 05/31/18 05:58 Most recent lab results Calcium 9.1 mg/dL (8.6-10.3) 05/31/18 05:58 Magnesium 1.7 mg/dL (1.6-2.6) 05/31/18 05:58 Consult Discharge Plan - Plan Referrals: Alex Gan MD [Primary Care Provider] -
[2018-05-31 15:42] LABS: Hepatitis B Surface Antibody 4.24 mIU/mL; Hepatitis B Surface Antigen Nonreactive (Nonreactive)
[2018-05-31] MEDS: Insulin LISPRO 300 UNITS/3 ML VIAL SQ SCH (16:32)
--- NOTE | 2018-05-31 17:34 | Podiatry Consult Note ---
Date of Encounter: 05/31/18 Time of Encounter: 17:30 Assessment and Plan (1) Sepsis due to undetermined organism Current visit: Yes Status: Acute 1. Continue with local wound care and IV antibiotics. Will continue to monitor wound. (2) Ulcer of left heel Current visit: Yes Status: Acute 1. Wound appears stable with mild cellulitis. Patient off the floor in HD when I went back to change the wound dressing. CT without evidence of soft tissue gas or abscess. No active drainage to culture. 2. ABIs ordered to evaluated vascular status and wound healing potential. 3. Will continue to monitor wound and cellulitis and will determine if any surgical intervention needed over the next 24 hours. Qualifiers: Qualified Code(s): L97.429 - Non-pressure chronic ulcer of left heel and midfoot with unspecified severity History of Present Illness Chief complaint: left foot wound HPI: Mr. Brooks is a 67 year old male who was admitted for hypoglycemia. He also has an ulcer of the left heel that he first noticed about 1 month ago, but it has become larger. He denies any drainage, but does report redness. He was previously seeing Dr. Sanders in wound care for a left heel ulcer which has heale d. He has been applying silvadene cream to the left heel wound daily. He reports fatigue and chills over the past day and continues to have this during the exam. Past Med Surg Social Fam HX - Past Medical History Medical history: diabetes, dialysis, GERD, hyperlipidemia, hypertension, peripheral artery disease, renal disease Additional medical history: gout Psychiatric history: no psych history - Past Surgical History Surgical History: cholecystectomy, orthopedic, other, other Additional surgical history: amputation fingers, carpal tunnel,shoulder - Social History Smoking Status: Never smoker Smokeless Tobacco Status: No Alcohol use: none Drug use: none - Family History Mother Living Status: Father Adopted: No Living Status: Hx Family Endocrine Disorder: Yes Medications and Allergies Acetaminophen [Tylenol] 500 mg PO BID PRN 05/31/18 [History] Albuterol Sulfate [Ventolin Hfa] 2 puff IH Q6H PRN 05/31/18 [History] Allopurinol [Zyloprim 100 MG] 100 mg PO DAILY 05/31/18 [History] Amitriptyline [Elavil] 25 mg PO HS 05/31/18 [History] Benzonatate [Tessalon] 100 mg PO TID 05/31/18 [History] Biotin 300 mcg PO DAILY 05/31/18 [History] Calcium Acetate [Phos-LO] 1,334 mg PO TIDWM 05/31/18 [History] Cholecalciferol (Vitamin D3) [Vitamin D] 50,000 unit PO QWEEK 05/31/18 [History] Darbepoetin [Aranesp] 60 mcg SQ Q14D 05/31/18 [History] DiphenhydraMINE [Benadryl] 25 mg PO QAM 05/31/18 [History] DiphenhydraMINE [Benadryl] 50 mg PO HS 05/31/18 [History] Diphenoxylate/Atropine [Lomotil 2.5 mg/0.025 mg] 1 tab PO PRN PRN MDD MAX 6 TABS PER DAY 05/31/18 [History] Docusate [Colace] 100 mg PO DAILY 05/31/18 [History] Furosemide [Lasix] 40 mg PO DAILY 05/31/18 [History] Gemfibrozil [Lopid] 600 mg PO BIDWM 05/31/18 [History] Guaifenesin [Mucinex] 1,200 mg PO BID 05/31/18 [History] Insulin Glargine [Lantus] 45 unit SQ HS 05/31/18 [History] Insulin LISPRO [HumaLOG] 36 units SQ TIDWM 05/31/18 [History] Loperamide HCl [Imodium A-D] 2 mg PO PRN PRN MDD MAX 8 CAPS PER DAY 05/31/18 [History] Loratadine [Allergy Relief] 10 mg PO DAILY 05/31/18 [History] Melatonin 5 mg PO HS 05/31/18 [History] Multivitamin [One Daily Multivitamin] 1 tab PO DAILY 05/31/18 [History] Mupirocin Calcium [Bactroban] 1 appl TP TID 05/31/18 [History] Omeprazole [PriLOSEC] 20 mg PO DAILY 05/31/18 [History] Ondansetron HCl [Zofran] 4 mg PO Q6H PRN 05/31/18 [History] Pregabalin [Lyrica] 100 mg PO QAM 05/31/18 [History] Pregabalin [Lyrica] 200 mg PO HS 05/31/18 [History] Riboflavin [Vitamin B-2] 25 mg PO DAILY 05/31/18 [History] Sevelamer [Renvela] 800 mg PO TIDWM 05/31/18 [History] Silver Sulfadiazine Cream [Silvadene] 1 appl TP DAILY 05/31/18 [History] Simethicone [Gas-X] 80 mg PO WMHS 05/31/18 [History] Tamsulosin HCl [Flomax] 0.4 mg PO DAILY 05/31/18 [History] Allergy/AdvReac Type Severity Reaction Status Date / Time No Known Allergies Allergy Verified 05/31/18 06:59 All Systems Reviewed: The remainder of the systems were reviewed and are negative Physical Exam - Constitutional Vitals: Temp Pulse Resp BP Pulse Ox 98.6 F 90 15 176/76 96 05/31/18 16:13 05/31/18 16:13 05/31/18 16:13 05/31/18 16:13 05/31/18 11:02 Exam: Alert, oriented x3. Vascular: Pulses non palpable bilaterally. Capillary refill less than 5 seconds to all digits. Pedal hair absent. skin temperature cool to touch distally. Dermatology: left posterior-plantar ulceration with hyperkeratotic rim and small area of necrosis measuring 1cm x 1cm. Mild edema without evidence of fluctuance or drainage. Mild periwound erythema. No crepitus. No probe to bone. Musculoskeletal: Limited muscle strength in plantarflexion, left ankle. No pain with compression of calf. Neuro: Sensations diminished bilaterally. Results - Labs Result Diagrams: 05/31/18 05:58 05/31/18 05:58 Labs: Abnormal lab results RBC 3.70 M/mcL (4.19-5.50) L 05/31/18 05:58 Hgb 12.1 g/dL (12.9-16.9) L 05/31/18 05:58 Hct 35.8 % (37.5-50.1) L 05/31/18 05:58 RDW 14.6 % (11.5-14.5) H 05/31/18 05:58 MPV 9.2 fL (9.4-12.4) L 05/31/18 05:58 ESR 89 mm/hr (0-10) H 05/31/18 06:00 Creatinine 3.27 mg/dL (0.70-1.30) H 05/31/18 05:58 Est GFR ( Amer) 23 (> 60) L 05/31/18 05:58 Est GFR (Non-Af Amer) 19 (> 60) L 05/31/18 05:58 BUN/Creatinine Ratio 4 (6-26) L 05/31/18 05:58 C-Reactive Protein 28 mg/L (Less than 10) H 05/31/18 06:00 H & H 05/31/18 Range/Units 05:58 Hgb 12.1 L (12.9-16.9) g/dL Hct 35.8 L (37.5-50.1) % All other labs normal. Consult Discharge Plan - Plan Referrals: Alex Gan MD [Primary Care Provider] -
[2018-05-31] MEDS ORDERED: 0.9 % Sodium Chloride 1,000 ML ONE (17:36)
[2018-05-31] MEDS: Melatonin 3 MG TABLET PO SCH (21:50)
[2018-05-31] MEDS: Insulin DETEMIR 100 UNIT/ML X5UNITS SQ SCH (21:51)
[2018-05-31] MEDS: Pregabalin 50 MG CAPSULE PO SCH (21:51)
[2018-05-31] MEDS: Piperacillin/Tazobactam 3.375 GM in 0.9 % Sodium Chloride Mini Bag 100 ML IVPB SCH (21:52)
[2018-06-01] MEDS ORDERED: DiphenhydraMINE CREAM 28.4 GM TUBE TP ONE (00:30)
[2018-06-01] MEDS: Piperacillin/Tazobactam 3.375 GM in 0.9 % Sodium Chloride Mini Bag 100 ML IVPB SCH ×2 (05:04→17:32)
[2018-06-01 06:39] LABS: Basophils # 0.1 K/mcL (0.0-0.2); Basophils % 0.7 %; Eosinophils # 0.5 K/mcL (0.0-0.6); Eosinophils % 6.2 %; Hematocrit 33.1 % (37.5-50.1); Hemoglobin 11.1 g/dL (12.9-16.9); Immature Granulocytes % 0.8 % (0-4); Lymphocytes # 0.9 K/mcL (0.6-4.6); Lymphocytes % 12.2 %; Mean Corpuscular HGB Conc 33.5 g/dL (31.6-35.5); Mean Corpuscular Hemoglobin 32.6 pg (28.0-33.3); Mean Corpuscular Volume 97.4 fL (83.0-100.0); Mean Platelet Volume 9.6 fL (9.4-12.4); Monocytes # 0.5 K/mcL (0.0-1.3); Monocytes % 7.1 %; Neutrophils # 5.6 K/mcL (1.6-8.9); Platelet Count 239 K/mcL (140-400); Red Cell Distribution Width 14.5 % (11.5-14.5)
[2018-06-01 06:57] LABS: Calcium 8.5 mg/dL (8.6-10.3); Potassium 4.1 mEq/L (3.5-5.1)
[2018-06-01] MEDS: Insulin LISPRO 300 UNITS/3 ML VIAL SQ SCH ×3 (08:42→17:33)
[2018-06-01] MEDS ORDERED: Aminoglycoside Consult 1 EACH MC ONE (08:43)
[2018-06-01] MEDS: Simethicone 80 MG TAB.CHEW PO SCH ×4 (09:01→20:29)
[2018-06-01] MEDS: Pregabalin 75 MG CAPSULE PO SCH (09:01)
[2018-06-01] MEDS: Cholecalciferol (D-3) 1,000 UNIT TABLET PO SCH (09:01)
[2018-06-01] MEDS: Benzonatate 100 MG CAPSULE PO SCH ×3 (09:01→20:29)
[2018-06-01] MEDS: Furosemide 40 MG TABLET PO SCH (09:01)
[2018-06-01] MEDS: Insulin DETEMIR 100 UNIT/ML X5UNITS SQ SCH ×2 (09:02→20:33)
--- NOTE | 2018-06-01 10:26 | Event Note ---
Date of Encounter: 06/01/18 Time of Encounter: 10:26 Nephrology Chart Review Last HD was on Sunday and his next HD is planned for Sunday; and, so I have no new recommendations today (Sunday). I will be available this weekend if needed. Please feel free to call or page me. Thank you.
[2018-06-01] MEDS: Silver Sulfadiazine 50 GM TUBE TP SCH (12:00)
--- NOTE | 2018-06-01 13:31 | Podiatry Progress Note ---
Date of Encounter: 06/01/18 Time of Encounter: 13:30 - Assessment and Plan (1) Sepsis due to undetermined organism Current Visit: Yes Status: Acute 1. Continue with local wound care and can transition to oral antibiotics tailored to culture sensitivities. Wound care orders placed. He needs to be in a Prevalon offloading boot. Will continue to monitor wound. 2. Recommend consult to ID to assist with antibiotic management. (2) Ulcer of left heel Current Visit: Yes Status: Acute 1. Wound appears stable with mild cellulitis. 2. ABIs ordered to evaluated vascular status and wound healing potential. Preliminary read indicates normal exam, will wait for final report prior to any vascular consult. 3. Will continue to monitor wound and cellulitis and will determine if any surgical intervention needed over the next 24 hours. No surgical intervention warranted a this time. Continue local wound care: normal saline irrigation, xeroform, Allevyn bandage to heel, protected in Prevalon boot at all times in bed. Qualifiers: Qualified Code(s): L97.429 - Non-pressure chronic ulcer of left heel and midfoot with unspecified severity Subjective Principal diagnosis: left foot ulcer Interval history: Patient feeling well today. BG elevated today. He denies pain in the foot. He denies n/v/f/c at this time. Dressing was off the foot today. Objective - Vital Signs Vital Signs: Vital Signs Temp Pulse Resp BP Pulse Ox 06/01/18 10:55 97.9 F 84 20 113/72 100 06/01/18 08:06 97.3 F L 81 16 109/67 90 06/01/18 04:39 98 F 83 16 132/78 97 06/01/18 00:56 98.3 F 108 16 95/50 96 05/31/18 20:30 99 F 18 128/62 05/31/18 20:15 110/62 05/31/18 20:00 123/97 05/31/18 19:45 131/65 05/31/18 19:30 122/65 05/31/18 19:15 139/71 05/31/18 19:00 147/73 05/31/18 18:45 156/90 05/31/18 18:30 145/77 05/31/18 18:15 152/72 05/31/18 18:00 154/74 05/31/18 17:45 159/79 05/31/18 17:30 162/68 05/31/18 17:15 98.4 F 16 167/70 05/31/18 16:13 98.6 F 90 15 176/76 Intake and Output 05/31/18 06/01/18 06/01/18 23:59 07:59 15:59 Intake Total 630 / 630 100 / 100 780 / 780 Output Total 2600 / 2600 Balance -1970 / -1970 100 / 100 780 / 780 Intake: IV Fluids 100 / 100 250 / 250 Zosyn 3.375 GM In 0.9 % Sodium 100 / 100 100 / 100 Chloride (Mini-Bag +) 100 ML @ 25 mls/hr IVPB Q12HR [facility] Rx#: [id number] 0.9 % Sodium Chloride 1,000 ML 50 / 50 @ As Directed PRIME .Q0M [facility] Rx #:[id number] Oral 30 / 30 530 / 530 Intake, Rinseback and Flushes 600 / 600 Output: Total Dialysis (HD) Output 2600 / 2600 Other: Meal Dinner Breakfast Percent of Meal Consumed 60% 100% Weight 91.8 kg Blood Glucose* 231 290 231 Hemodialysis Net Fluid Removed 2000 (mL) Patient Weight 06/01/18 23:59 Weight 91.8 kg - Exam Exam: Alert, oriented x3. Vascular: Pulses non palpable bilaterally. Capillary refill less than 5 seconds to all digits. Pedal hair absent. skin temperature cool to touch distally. Dermatology: left posterior-plantar ulceration 4cm x 4cm with 90% granular base and small area of necrosis measuring 1cm x 1cm. Mild edema without evidence of fluctuance or drainage. Mild periwound erythema. No crepitus. No probe to bone. Musculoskeletal: Limited muscle strength in plantarflexion, left ankle. No pain with compression of calf. Neuro: Sensations diminished bilaterally. - Lab Result Diagrams: 06/01/18 05:51 06/01/18 05:51 Labs: Abnormal lab results RBC 3.40 M/mcL (4.19-5.50) L 06/01/18 05:51 Hgb 11.1 g/dL (12.9-16.9) L 06/01/18 05:51 Hct 33.1 % (37.5-50.1) L 06/01/18 05:51 ESR 89 mm/hr (0-10) H 05/31/18 06:00 Sodium 135 mEq/L (136-145) L 06/01/18 05:51 Creatinine 2.86 mg/dL (0.70-1.30) H 06/01/18 05:51 Est GFR ( Amer) 27 (> 60) L 06/01/18 05:51 Est GFR (Non-Af Amer) 22 (> 60) L 06/01/18 05:51 BUN/Creatinine Ratio 4 (6-26) L 06/01/18 05:51 Glucose 289 mg/dL (70-105) H 06/01/18 05:51 POC Glucose 290 mg/dL (70-99) H 06/01/18 01:09 Calcium 8.5 mg/dL (8.6-10.3) L 06/01/18 05:51 C-Reactive Protein 28 mg/L (Less than 10) H 05/31/18 06:00 Microbiology, Last 48 Hours 05/31/18 07:50 Wound Culture - Preliminary Left Foot Gram Negative Igor 05/31/18 06:25 Blood Culture - Preliminary Peripheral Venipuncture Culture is incubating and being continuously monitored for growth. Final report to follow. 05/31/18 06:35 Blood Culture - Preliminary Peripheral Venipuncture Culture is incubating and being continuously jean tored for growth. Final report to follow. Consult Discharge Plan - Plan Additional Instructions: Follow up in [place] [facility] 1 week after discharge. Referrals: Alex Gan MD [Primary Care Provider] -
[2018-06-01] MEDS ORDERED: Diphenoxylate/Atropine 1 TAB TABLET PO PRN (15:03)
--- NOTE | 2018-06-01 15:09 | Internal Med Progress Note ---
Hospitalist Progress Note - Encounter Date of Encounter: 06/01/18 Time of Encounter: 12:00 - Subjective Interval History: H&P reviewed. Patient with history of DM and ESRD on HD, is admitted for L heel ulcer and hypoglycemia. States that he feels much better now, denies any fever/chills, N/V, abdominal pain, or lightheadedness. - Exam Vitals: Temp Pulse Resp BP Pulse Ox 97.9 F 84 20 113/72 100 06/01/18 10:55 06/01/18 10:55 06/01/18 10:55 06/01/18 10:55 06/01/18 10:55 Exam: General: Alert and oriented, not in acute distress. Cardiovascular:Normal S1 & S2, No JVD. Pulse regular. Lungs: clear to auscultation, no wheezes/rales Abdomen:Soft, non-tender, no rigidity. Extremities: L heel ulcer 5x6cm with small area of central necrosis 1x1cm. No fluctuance or active drainage. Pulses: DP/PT not easily palpable but good cap refill < 3 secs - Assessment and Plan (1) Ulcer of left heel Current Visit: Yes Status: Acute Assessment and Plan: L heel decubitus ulcer with concerning changes around it suspicious for cellulitis no evidence of OM or abscess on CT prelim [facility] report was normal ESR, CRP 89/28 respectively prelim wound culture growing GNR continue arun, d/c vanc appreciate podiatry rec consider ID consult on Sunday pending wound culture result (2) Hypoglycemia associated with diabetes Current Visit: Yes Status: Resolved Assessment and Plan: Likely due to excessive Insulin dosing at home with Lantus 45U HS, Lispro 36 U TID his HbA1C from 04/02 was 7.0 only continue Levemir 15U BID with MDSS ADA diet (3) ESRD (end stage renal disease) on dialysis Current Visit: No Status: Chronic Assessment and Plan: He gets HD on //, underwent HD inpatient yesterday follow with Nephro (4) Malnutrition Current Visit: No Status: Chronic Assessment and Plan: Does have mild to moderate PCM Nutrition consulted (5) Depression Current Visit: Yes Status: Chronic Assessment and Plan: Resumed home medications (6) HTN (hypertension) Current Visit: Yes Status: Chronic Assessment and Plan: Stable with current regimen (7) HLD (hyperlipidemia) Current Visit: Yes Status: Chronic Assessment and Plan: Resumed home medications DVT Prophylaxis: SQ heparin - Time Spent with Patient Total time spent is greater than 50% in coordination of care (as documented) at patient's floor/unit and/or counseling patient: Plan of Care Discussed with: nurse Internal Medicine: Result - Labs CBC & Chem 7: 06/01/18 05:51 06/01/18 05:51 Labs: Short CBC 06/01/18 Range/Units 05:51 WBC 7.6 (4.3-11.1) K/mcL Hgb 11.1 L (12.9-16.9) g/dL Hct 33.1 L (37.5-50.1) % Plt Count 239 (140-400) K/mcL Neutrophils # 5.6 (1.6-8.9) K/mcL BMP 06/01/18 05:51 Sodium 135 L Potassium 4.1 Chloride 98 Carbon Dioxide 27 BUN 12 Creatinine 2.86 H Glucose 289 H Calcium 8.5 L Consult Discharge Plan - Plan Additional Instructions: Follow up in [place] [facility] center 1 week after discharge. Referrals: Alex Gan MD [Primary Care Provider] - (1) Ulcer of left heel Qualifiers: Qualified Code(s): L97.429 - Non-pressure chronic ulcer of left heel and midfoot with unspecified severity (4) Malnutrition Qualifiers: Protein-calorie malnutrition severity: moderate Qualified Code(s): E44.0 - Moderate protein-calorie malnutrition (5) Depression Qualifiers: Depression Type: unspecified Qualified Code(s): F32.9 - Major depressive disorder, single episode, unspecified (6) HTN (hypertension) Qualifiers: Hypertension type: essential hypertension Qualified Code(s): I10 - Essential (primary) hypertension (7) HLD (hyperlipidemia) Qualifiers: Hyperlipidemia type: unspecified Qualified Code(s): E78.5 - Hyperlipidemia, unspecified
[2018-06-01] MEDS: Calcium Acetate 667 MG CAPSULE PO SCH (17:32)
[2018-06-01] MEDS: *HR* Heparin 5,000 UNIT/ML VIAL SQ SCH (17:33)
[2018-06-01] MEDS: Melatonin 3 MG TABLET PO SCH (20:29)
[2018-06-01] MEDS: Pregabalin 50 MG CAPSULE PO SCH (20:29)
[2018-06-02] MEDS: Piperacillin/Tazobactam 3.375 GM in 0.9 % Sodium Chloride Mini Bag 100 ML IVPB SCH ×2 (06:03→17:07)
[2018-06-02] MEDS: *HR* Heparin 5,000 UNIT/ML VIAL SQ SCH ×2 (06:03→17:21)
[2018-06-02] MEDS: Insulin LISPRO 300 UNITS/3 ML VIAL SQ SCH ×3 (08:30→17:06)
[2018-06-02] MEDS: Cholecalciferol (D-3) 1,000 UNIT TABLET PO SCH (08:31)
[2018-06-02] MEDS: Simethicone 80 MG TAB.CHEW PO SCH ×4 (08:32→21:53)
[2018-06-02] MEDS: Benzonatate 100 MG CAPSULE PO SCH ×3 (08:32→21:53)
[2018-06-02] MEDS: Pregabalin 75 MG CAPSULE PO SCH (08:32)
[2018-06-02] MEDS: Loratadine 10 MG TABLET PO SCH (08:32)
[2018-06-02] MEDS: Calcium Acetate 667 MG CAPSULE PO SCH ×3 (08:32→17:07)
[2018-06-02] MEDS: Furosemide 40 MG TABLET PO SCH (08:32)
[2018-06-02] MEDS: Silver Sulfadiazine 50 GM TUBE TP SCH (08:45)
[2018-06-02] MEDS: Insulin DETEMIR 100 UNIT/ML X5UNITS SQ SCH ×2 (09:15→21:54)
--- NOTE | 2018-06-02 11:06 | Internal Med Progress Note ---
Hospitalist Progress Note - Encounter Date of Encounter: 06/02/18 Time of Encounter: 08:30 - Subjective Interval History: No acute events overnight. No fever/chills, N/V, abdominal pain, or lightheadedness. Denies any significant L heel pain or discharges. - Exam Vitals: Temp Pulse Resp BP Pulse Ox 97.8 F 104 20 159/90 95 06/02/18 07:11 06/02/18 07:11 06/02/18 07:11 06/02/18 07:11 06/02/18 07:11 Exam: General: Alert and oriented, not in acute distress. Cardiovascular:Normal S1 & S2, No JVD. Pulse regular. Lungs: clear to auscultation, no wheezes/rales Abdomen:Soft, non-tender, no rigidity. Extremities: L heel dressing dry and clean Pulses: DP/PT not easily palpable but good cap refill < 3 secs - Assessment and Plan (1) Ulcer of left heel Current Visit: Yes Status: Acute Assessment and Plan: L heel decubitus ulcer with concerning changes around it suspicious for cellulitis no evidence of OM or abscess on CT prelim [facility] report was normal ESR, CRP 89/28 respectively wound culture growing GNR, follow up on final culture continue zosyn, vanc d/lucien yesterday appreciate podiatry rec, for Prevalon offloading boot (2) Hypoglycemia associated with diabetes Current Visit: Yes Status: Resolved Assessment and Plan: Likely due to excessive Insulin dosing at home with Lantus 45U HS, Lispro 36 U TID his HbA1C from 04/02 was 7.0 only glucose readings slightly elevated on Levemir 15U BID with MDSS will increase levemir to 18U BID ADA diet (3) ESRD (end stage renal disease) on dialysis Current Visit: No Status: Chronic Assessment and Plan: He gets HD on //, underwent HD inpatient on Sunday will likely get HD tomorrow follow with Nephro (4) Malnutrition Current Visit: No Status: Chronic Assessment and Plan: Does have mild to moderate PCM Nutrition consulted (5) Depression Current Visit: Yes Status: Chronic Assessment and Plan: Resumed home medications (6) HTN (hypertension) Current Visit: Yes Status: Chronic Assessment and Plan: Stable with current regimen (7) HLD (hyperlipidemia) Current Visit: Yes Status: Chronic Assessment and Plan: Resumed home medications DVT Prophylaxis: SQ heparin - Time Spent with Patient Total time spent is greater than 50% in coordination of care (as documented) at patient's floor/unit and/or counseling patient: Plan of Care Discussed with: patient Internal Medicine: Result - Labs CBC & Chem 7: 06/01/18 05:51 06/01/18 05:51 Consult Discharge Plan - Plan Additional Instructions: Follow up in [place] [facility] 1 week after discharge. Referrals: Alex Gan MD [Primary Care Provider] - (1) Ulcer of left heel Qualifiers: Qualified Code(s): L97.429 - Non-pressure chronic ulcer of left heel and midfoot with unspecified severity (4) Malnutrition Qualifiers: Protein-calorie malnutrition severity: moderate Qualified Code(s): E44.0 - Moderate protein-calorie malnutrition (5) Depression Qualifiers: Depression Type: unspecified Qualified Code(s): F32.9 - Major depressive disorder, single episode, unspecified (6) HTN (hypertension) Qualifiers: Hypertension type: essential hypertension Qualified Code(s): I10 - Essential (primary) hypertension (7) HLD (hyperlipidemia) Qualifiers: Hyperlipidemia type: unspecified Qualified Code(s): E78.5 - Hyperlipidemia, unspecified
[2018-06-02] MEDS: Pregabalin 50 MG CAPSULE PO SCH (21:52)
[2018-06-02] MEDS: Melatonin 3 MG TABLET PO SCH (21:55)
[2018-06-03 04:46] LABS: Basophils # 0.1 K/mcL (0.0-0.2); Basophils % 0.8 %; Eosinophils # 0.7 K/mcL (0.0-0.6); Eosinophils % 7.2 %; Hematocrit 33.1 % (37.5-50.1); Hemoglobin 11.3 g/dL (12.9-16.9); Immature Granulocytes % 0.7 % (0-4); Lymphocytes # 1.1 K/mcL (0.6-4.6); Lymphocytes % 11.7 %; Mean Corpuscular HGB Conc 34.1 g/dL (31.6-35.5); Mean Corpuscular Hemoglobin 32.9 pg (28.0-33.3); Mean Corpuscular Volume 96.5 fL (83.0-100.0); Mean Platelet Volume 9.5 fL (9.4-12.4); Monocytes # 0.5 K/mcL (0.0-1.3); Monocytes % 5.6 %; Neutrophils # 6.6 K/mcL (1.6-8.9); Platelet Count 282 K/mcL (140-400); Red Blood Count 3.43 M/mcL (4.19-5.50); Red Cell Distribution Width 14.3 % (11.5-14.5)
[2018-06-03 05:04] LABS: Calcium 9.2 mg/dL (8.6-10.3); Phosphorous 4.2 mg/dL (2.7-4.5); Potassium 4.7 mEq/L (3.5-5.1)
[2018-06-03] MEDS: *HR* Heparin 5,000 UNIT/ML VIAL SQ SCH (06:20)
[2018-06-03] MEDS: Piperacillin/Tazobactam 3.375 GM in 0.9 % Sodium Chloride Mini Bag 100 ML IVPB SCH (06:21)
[2018-06-03] MEDS: Cholecalciferol (D-3) 1,000 UNIT TABLET PO SCH (08:02)
[2018-06-03] MEDS: Calcium Acetate 667 MG CAPSULE PO SCH ×2 (08:02→12:30)
[2018-06-03] MEDS: Loratadine 10 MG TABLET PO SCH (08:03)
[2018-06-03] MEDS: Furosemide 40 MG TABLET PO SCH (08:03)
[2018-06-03] MEDS: Benzonatate 100 MG CAPSULE PO SCH (08:03)
[2018-06-03] MEDS: Simethicone 80 MG TAB.CHEW PO SCH ×2 (08:03→12:30)
[2018-06-03] MEDS: Pregabalin 75 MG CAPSULE PO SCH (08:03)
[2018-06-03] MEDS: Insulin DETEMIR 100 UNIT/ML X5UNITS SQ SCH (08:03)
[2018-06-03] MEDS: Insulin LISPRO 300 UNITS/3 ML VIAL SQ SCH ×2 (08:04→12:30)
--- NOTE | 2018-06-03 09:56 | Nephrology Progress Note ---
Date of Encounter: 06/03/18 Time of Encounter: 09:54 - Assessment and Plan (1) ESRD (end stage renal disease) on dialysis Current Visit: Yes Status: Acute Current regimen is MWF, HD in progress for today. Renal diet Renal vitamins Strict I/O Avoid nephrotoxins and renal dose all medications. (2) Diabetic ulcer of ankle Current Visit: Yes Status: Acute Per podiatry. (3) Diabetes Current Visit: Yes Status: Acute Target glucose 140-180. Per primary. Qualifiers: Qualified Code(s): E11.9 - Type 2 diabetes mellitus without complications (4) Diabetes 1.5, managed as type 2 Current Visit: Yes Status: Acute Subjective Principal diagnosis: left foot ulcer Interval history: Patient seen and examined during hemodialysis, tolerating well. Denies chest pain or shortness of breath. Objective - Vital Signs Vital signs: Vital Signs Temp Pulse Resp BP Pulse Ox 06/03/18 08:27 96 06/03/18 07:10 97.9 F 90 16 157/84 96 06/03/18 02:58 98.9 F 91 18 147/75 97 06/02/18 23:45 98.9 F 91 18 149/59 99 06/02/18 21:30 98.4 F 83 17 167/76 99 06/02/18 16:21 98.0 F 81 18 179/82 100 06/02/18 11:18 97.4 F L 87 20 153/83 98 Intake and Output 06/02/18 06/03/18 06/03/18 23:59 07:59 15:59 Intake Total 200 / 200 240 / 240 120 / 120 Output Total 700 / 700 0 / 0 Balance -500 / -500 240 / 240 120 / 120 Intake: IV Fluids 100 / 100 Zosyn 3.375 GM In 0.9 % Sodium 100 / 100 Chloride (Mini-Bag +) 100 ML @ 25 mls/hr IVPB Q12HR [facility] Rx#: [id number] Oral 100 / 100 240 / 240 120 / 120 Output: Urine 700 / 700 0 / 0 Other: Stool Size Large Stool Consistency soft Stool Color Brown # Voids 1 # Bowel Movement Diapers 1 Weight 93.1 kg 92.2 kg Blood Glucose* 183 226 Patient Weight 06/03/18 23:59 Weight 92.2 kg - General Appearance General appearance: Present: well-developed, well-nourished EENT: Present: ATNC, hearing intact, vision intact Neck: Present: supple Respiratory: Present: clear Cardiology: Present: edema (Trace bilateral lower exterminate edema.), normal S1, normal S2 Dialysis Vascular Access: Arteriovenous Fistula thrill: Yes bruit: Yes Gastrointestinal: Present: normoactive bowel sounds, no tenderness, no guarding Integumentary: Present: no rash, warm and dry Additional Comments: LLE in Prevalon boot. Neurologic: Present: alert and oriented x3 Psychiatric: Present: mood/affect appropriate, cooperative - Lab 06/03/18 04:25 06/03/18 04:25 Most recent lab results Calcium 9.2 mg/dL (8.6-10.3) 06/03/18 04:25 Phosphorus 4.2 mg/dL (2.7-4.5) 06/03/18 04:25 Magnesium 1.7 mg/dL (1.6-2.6) 05/31/18 05:58 Consult Discharge Plan - Plan Instructions: Diabetes Mellitus Type 2 in Adults (DC) Additional Instructions: Follow up in [place] wound [facility] center 1 week after discharge. Referrals: Antonino Sanders DPM [Partnered Physician] - 06/12/18 1:45 pm ([place] [facility] [phone]) Prescriptions: cephALEXin [Keflex] 500 mg PO DAILY 7 Days #7 capsule Insulin Glargine [Lantus] 36 unit SQ HS #120 mls Insulin LISPRO [HumaLOG] 6 units SQ TIDWM #120 vial
--- NOTE | 2018-06-03 11:12 | Discharge Summary ---
- NOTES TO OUTPATIENT PROVIDER Notes to Outpatient Provider: admitted for L heel ulcer/cellulitis and hypoglycemia. No evidence of OM. Sepsis was initially suspected but ruled out. Wound culture +ve for Ecoli sen to cephalosporins. Seen by podiatry and will need close follow up in wound clinic as outpatient. Discharged home on Prevalon boot and PO Keflex at dosages appropriate for dialysis. Hypoglycemia was likely due to tight glycemic control as an outpatient and the insulin dosing was adjusted to levemir 18U BID and humalog 6U TIDmeals. Consideration was given for ECF placement in view of limited mobility but he has long-standing caregiver at home and refused to be placed at an outside facility. Orders not resulted at time of discharge: Pending orders 05/31/18 06:25 Culture,Blood [BC] Stat 05/31/18 13:29 Culture,Anaerobic [RM] Routine Date of Encounter: 06/03/18 Time of Encounter: 08:30 - Discharge Diagnosis (1) Ulcer of left heel Priority: Primary Status: Acute Qualifiers: Qualified Code(s): L97.429 - Non-pressure chronic ulcer of left heel and midfoot with unspecified severity (2) Hypoglycemia associated with diabetes Priority: Secondary Status: Resolved (3) ESRD (end stage renal disease) on dialysis Priority: Secondary Status: Chronic (4) Malnutrition Priority: Secondary Status: Chronic Qualifiers: Protein-calorie malnutrition severity: moderate Qualified Code(s): E44.0 - Moderate protein-calorie malnutrition (5) Depression Priority: Secondary Status: Chronic Qualifiers: Depression Type: unspecified Qualified Code(s): F32.9 - Major depressive disorder, single episode, unspecified (6) HTN (hypertension) Priority: Secondary Status: Chronic Qualifiers: Hypertension type: essential hypertension Qualified Code(s): I10 - Essential (primary) hypertension (7) HLD (hyperlipidemia) Priority: Secondary Status: Chronic Qualifiers: Hyperlipidemia type: unspecified Qualified Code(s): E78.5 - Hyperlipidemia, unspecified Hospital course: Mr. Brooks is a 67 year old male with hx of DM, ESRD on HD, was admitted for L heel ulcer/cellulitis and hypoglycemia. No evidence of OM. Sepsis was initially suspected but ruled out. Wound culture +ve for Ecoli sen to cephalosporins. Seen by podiatry and will need close follow up in wound clinic as outpatient. Discharged home on Prevalon boot and PO Keflex at dosages appropriate for dialysis. Hypoglycemia was likely due to tight glycemic control as an outpatient and the insulin dosing was adjusted to levemir 18U BID and humalog 6U TIDmeals. Consideration was given for ECF placement in view of limited mobility but he has long-standing caregiver at home and refused to be placed at an outside facility. Discharge discussed with: patient, nurse, change management consultant (Podiatry) - Time Spent with Patient Total time spent providing and/or coordinating discharge services: 34 mins - Discharge Medications Prescriptions: cephALEXin [Keflex] 500 mg PO DAILY 7 Days #7 capsule Insulin Glargine [Lantus] 36 unit SQ HS #120 mls Insulin LISPRO [HumaLOG] 6 units SQ TIDWM #120 vial Home Medications: Acetaminophen [Tylenol] 500 mg PO BID PRN 05/31/18 [History] Albuterol Sulfate [Ventolin Hfa] 2 puff IH Q6H PRN 05/31/18 [History] Allopurinol [Zyloprim 100 MG] 100 mg PO DAILY 05/31/18 [History] Amitriptyline [Elavil] 25 mg PO HS 05/31/18 [History] Benzonatate [Tessalon] 100 mg PO TID 05/31/18 [History] Biotin 300 mcg PO DAILY 05/31/18 [History] Calcium Acetate [Phos-LO] 1,334 mg PO TIDWM 05/31/18 [History] Cholecalciferol (Vitamin D3) [Vitamin D3] 50,000 unit PO QWEEK 05/31/18 [History] Darbepoetin [Aranesp] 60 mcg SQ Q14D 05/31/18 [History] DiphenhydraMINE [Benadryl] 25 mg PO QAM 05/31/18 [History] DiphenhydraMINE [Benadryl] 50 mg PO HS 05/31/18 [History] Diphenoxylate/Atropine [Lomotil 2.5 mg/0.025 mg] 1 tab PO PRN PRN MDD MAX 6 TABS PER DAY 05/31/18 [History] Docusate [Colace] 100 mg PO DAILY 05/31/18 [History] Furosemide [Lasix] 40 mg PO DAILY 05/31/18 [History] Gemfibrozil [Lopid] 600 mg PO BIDWM 05/31/18 [History] Guaifenesin [Mucinex] 1,200 mg PO BID 05/31/18 [History] Loperamide HCl [Imodium A-D] 2 mg PO PRN PRN MDD MAX 8 CAPS PER DAY 05/31/18 [History] Loratadine [Allergy Relief] 10 mg PO DAILY 05/31/18 [History] Melatonin 5 mg PO HS 05/31/18 [History] Multivitamin [One Daily Multivitamin] 1 tab PO DAILY 05/31/18 [History] Mupirocin Calcium [Bactroban] 1 appl TP TID 05/31/18 [History] Omeprazole [PriLOSEC] 20 mg PO DAILY 05/31/18 [History] Ondansetron HCl [Zofran] 4 mg PO Q6H PRN 05/31/18 [History] Pregabalin [Lyrica] 100 mg PO QAM 05/31/18 [History] Pregabalin [Lyrica] 200 mg PO HS 05/31/18 [History] Riboflavin [Vitamin B-2] 25 mg PO DAILY 05/31/18 [History] Sevelamer [Renvela] 800 mg PO TIDWM 05/31/18 [History] Silver Sulfadiazine Cream [Silvadene] 1 appl TP DAILY 05/31/18 [History] Simethicone [Gas-X] 80 mg PO WMHS 05/31/18 [History] Tamsulosin HCl [Flomax] 0.4 mg PO DAILY 05/31/18 [History] Insulin Glargine [Lantus] 36 unit SQ HS #120 mls 06/03/18 [Rx] Insulin LISPRO [HumaLOG] 6 units SQ TIDWM #120 vial 06/03/18 [Rx] cephALEXin [Keflex] 500 mg PO DAILY 7 Days #7 capsule 06/03/18 [Rx] Allergies/Adverse Reactions: Allergy/AdvReac Type Severity Reaction Status Date / Time No Known Allergies Allergy Verified 05/31/18 06:59 Date of admission: 05/31/18 13:42 Primary care physician: Alex Gan MD Consults: 05/31/18 08:49 Consult to Nephrology [CONS] Routine Consulting Provider: Kidney Royal/ORIMI/MIKALA/LORI Reason for Consult: Known ESRD pt..need HD Time Notified: 08:49 Call Completed: No 05/31/18 10:19 Consult to Nutrition [CONS] Routine Comment: Consulting Provider: NUTRITION Reason for Dietary Consult: PO Supplementation 05/31/18 11:05 Consult to Podiatry [CONS] Routine Consulting Provider: Podiatry [facility] Reason for Consult: Left heel abscess Time Notified: 11:05 Call Completed: Yes 05/31/18 13:30 Consult to Dialysis [CONS] ONCE 06/01/18 13:30 Consult to Dialysis [CONS] ONCE 06/02/18 11:06 Consult to Occupational Therapy [CONS] Routine Comment: Evaluate, develop and implement POC Reason for Consult: L heel ulcer on offloading boot, ?placement Does patient have active BEDREST order?: No Is patient medically & hemodynamically stable?: Yes Consult to Physical Therapy [CONS] Routine Comment: Evaluate, develop and implement POC Reason for Consult: L heel ulcer on offloading boot, ?placement Does patient have active BEDREST order?: No Is patient medically & hemodynamically stable?: Yes 06/03/18 07:00 Consult to Dialysis [CONS] ONCE - Constitutional Vitals: Temp Pulse Resp BP Pulse Ox 97.9 F 90 16 157/84 96 06/03/18 07:10 06/03/18 07:10 06/03/18 07:10 06/03/18 07:10 06/03/18 08:27 General appearance: Present: cooperative, A&O X 3, answers questions appropriately Exam: General: Alert and oriented, not in acute distress. Cardiovascular:Normal S1 & S2, No JVD. Pulse regular. Lungs: clear to auscultation, no wheezes/rales Abdomen:Soft, non-tender, no rigidity. Extremities: L heel dressing dry and clean Pulses: DP/PT not easily palpable but good cap refill < 3 secs - Patient Status Disposition: Home, Self-Care Condition: Fair Functional capacity at discharge: independent ambulation Overall status at discharge: patient is progressing back to baseline - Discharge Instructions Instructions: Diabetes Mellitus Type 2 in Adults (DC) Follow Up With: Alex Gan MD [Primary Care Provider] - Antonino Sanders DPM [Partnered Physician] - Additional Instructions: Follow up in [place] [facility] 1 week after discharge. - Diet and Activity Activity: resume usual activities as tolerated Diet: diabetic diet
[2018-06-03] MEDS: Silver Sulfadiazine 50 GM TUBE TP SCH (12:01)
--- NOTE | 2018-06-03 12:29 | Physician Discharge Referral ---
Home Health/Hosp Referral Info Transfer to: Home Health - Diagnosis (1) Ulcer of left heel Priority: Primary Status: Acute (2) Hypoglycemia associated with diabetes Priority: Secondary Status: Resolved (3) ESRD (end stage renal disease) on dialysis Priority: Secondary Status: Chronic (4) Malnutrition Priority: Secondary Status: Chronic (5) Depression Priority: Secondary Status: Chronic (6) HTN (hypertension) Priority: Secondary Status: Chronic (7) HLD (hyperlipidemia) Priority: Secondary Status: Chronic - Respiratory Orders Smoking Cessation: Smoking cessation has been advised. For more information, call the [place] Tobacco Quit Line at 1-815-EMUSNOW. - Dressing/Wound Care Site: L heel Type of Dressing/Treatments w/Frequency: per podiatry: Continue local wound care: normal saline irrigation, xeroform, Allevyn bandage to heel, protected in Prevalon boot at all times in bed. - Services Needed Following services are medically necessary services: Nursing, Home Health Aide, Physical Therapy, Occupational Therapy Other Treatments: Will need wound care follow up with Dr. Sanders in 1 week - Transfer Medications Prescriptions: cephALEXin [Keflex] 500 mg PO DAILY 7 Days #7 capsule Insulin Glargine [Lantus] 36 unit SQ HS #120 mls Insulin LISPRO [HumaLOG] 6 units SQ TIDWM #120 vial Home Medications: Acetaminophen [Tylenol] 500 mg PO BID PRN 05/31/18 [History] Albuterol Sulfate [Ventolin Hfa] 2 puff IH Q6H PRN 05/31/18 [History] Allopurinol [Zyloprim 100 MG] 100 mg PO DAILY 05/31/18 [History] Amitriptyline [Elavil] 25 mg PO HS 05/31/18 [History] Benzonatate [Tessalon] 100 mg PO TID 05/31/18 [History] Biotin 300 mcg PO DAILY 05/31/18 [History] Calcium Acetate [Phos-LO] 1,334 mg PO TIDWM 05/31/18 [History] Cholecalciferol (Vitamin D3) [Vitamin D3] 50,000 unit PO QWEEK 05/31/18 [History] Darbepoetin [Aranesp] 60 mcg SQ Q14D 05/31/18 [History] DiphenhydraMINE [Benadryl] 25 mg PO QAM 05/31/18 [History] DiphenhydraMINE [Benadryl] 50 mg PO HS 05/31/18 [History] Diphenoxylate/Atropine [Lomotil 2.5 mg/0.025 mg] 1 tab PO PRN PRN MDD MAX 6 TABS PER DAY 05/31/18 [History] Docusate [Colace] 100 mg PO DAILY 05/31/18 [History] Furosemide [Lasix] 40 mg PO DAILY 05/31/18 [History] Gemfibrozil [Lopid] 600 mg PO BIDWM 05/31/18 [History] Guaifenesin [Mucinex] 1,200 mg PO BID 05/31/18 [History] Loperamide HCl [Imodium A-D] 2 mg PO PRN PRN MDD MAX 8 CAPS PER DAY 05/31/18 [History] Loratadine [Allergy Relief] 10 mg PO DAILY 05/31/18 [History] Melatonin 5 mg PO HS 05/31/18 [History] Multivitamin [One Daily Multivitamin] 1 tab PO DAILY 05/31/18 [History] Mupirocin Calcium [Bactroban] 1 appl TP TID 05/31/18 [History] Omeprazole [PriLOSEC] 20 mg PO DAILY 05/31/18 [History] Ondansetron HCl [Zofran] 4 mg PO Q6H PRN 05/31/18 [History] Pregabalin [Lyrica] 100 mg PO QAM 05/31/18 [History] Pregabalin [Lyrica] 200 mg PO HS 05/31/18 [History] Riboflavin [Vitamin B-2] 25 mg PO DAILY 05/31/18 [History] Sevelamer [Renvela] 800 mg PO TIDWM 05/31/18 [History] Silver Sulfadiazine Cream [Silvadene] 1 appl TP DAILY 05/31/18 [History] Simethicone [Gas-X] 80 mg PO WMHS 05/31/18 [History] Tamsulosin HCl [Flomax] 0.4 mg PO DAILY 05/31/18 [History] Insulin Glargine [Lantus] 36 unit SQ HS #120 mls 06/03/18 [Rx] Insulin LISPRO [HumaLOG] 6 units SQ TIDWM #120 vial 06/03/18 [Rx] cephALEXin [Keflex] 500 mg PO DAILY 7 Days #7 capsule 06/03/18 [Rx] Allergies/Adverse Reactions: 3 Allergy/AdvReac Type Severity Reaction Status Date / Time No Known Allergies Allergy Verified 05/31/18 06:59 Certification: Further, I certify that my clinical findings support that this patient is homebound (i.e. absences from home require considerable and taxing effort and are for medical reasons or [employer] services or infrequently or short duration when for other reasons) because: Homebound Reason: Patient requires assistance of a person or device to safely leave home Attestation: My signature below is to certify that this patient is under my care and that I, or nurse practitioner, or a physician's botany laboratory assistant working with me, has a [id number] encounter with this patient.
[2018-06-03 12:46] VITALS: BP 115/42
== END 2018-06-03 13:46 | disposition home or self-care (01) | DRG 380 ==
LOC: 2ANU 05:36 → EMEROOARM 05:36 → 2ANU 09:44 → SUATTDRO 13:42
PROVIDERS: ADMIT Pediatrics; ATTEND Internal Medicine

== ENCOUNTER 2019-05-13 16:45 | Inpatient (IN) ==
[2019-05-13] MEDS ORDERED: Piperacillin/Tazobactam 3.375 GM in Water for inj. (sterile) 20 ML IVP ONE (16:58)
[2019-05-13] MEDS ORDERED: Ondansetron 4 MG/2 ML VIAL IVP ONE (17:06)
[2019-05-13] MEDS ORDERED: Morphine Sulfate 2 MG/ML SYRINGE IVP ONE (17:15)
[2019-05-13] MEDS ORDERED: *HR* Promethazine 25 MG/ML VIAL IVP ONE (17:15)
[2019-05-13 17:54] LABS: Basophils % 0.4 %; Eosinophils # 0.2 K/mcL (0.0-0.6); Eosinophils % 2.3 %; Hematocrit 34.3 % (37.5-50.1); Hemoglobin 11.8 g/dL (12.9-16.9); Immature Granulocytes % 0.9 % (0-4); Lymphocytes # 1.5 K/mcL (0.6-4.6); Lymphocytes % 14.7 %; Mean Corpuscular HGB Conc 34.4 g/dL (31.6-35.5); Mean Corpuscular Hemoglobin 30.3 pg (28.0-33.3); Mean Corpuscular Volume 87.9 fL (83.0-100.0); Mean Platelet Volume 9.5 fL (9.4-12.4); Monocytes # 0.5 K/mcL (0.0-1.3); Neutrophils # 7.9 K/mcL (1.6-8.9); Platelet Count 294 K/mcL (140-400); Red Cell Distribution Width 14.5 % (11.5-14.5); Segmented Neutrophils % 76.7 %; White Blood Count 10.3 K/mcL (4.3-11.1)
[2019-05-13 18:00] LABS: INR 1.4; Prothrombin Time 15.6 Seconds (9.4-12.1)
[2019-05-13 18:03] LABS: Activated Partial Thrombo Time 39.4 Seconds (26.0-36.0)
[2019-05-13 18:15] LABS: Albumin 3.8 g/dL (3.5-5.7); Albumin/Globulin Ratio 1.4 (1.1-2.2); Bilirubin,Direct 0.1 mg/dL (0.0-0.2); Bilirubin,Indirect 0.4 mg/dL (0.0-1.0); Bilirubin,Total 0.5 mg/dL (0.3-1.0); Calcium 8.6 mg/dL (8.6-10.3); Globulin 2.8 g/dL (2.4-3.5); Magnesium 1.9 mg/dL (1.6-2.6); Phosphorous 3.9 mg/dL (2.7-4.5); Potassium 4.3 mEq/L (3.5-5.1); Total Protein 6.6 g/dL (6.4-8.9)
[2019-05-13 19:06] LABS: Bilirubin,Urine Negative (Negative); Blood,Urine Small (Negative); Clarity,Urine Clear (Clear); Color,Urine Yellow (Yellow); Glucose,Urine (UA) 500 mg/dL (Normal); Ketones,Urine Negative (Negative); Leukocyte Esterase,Urine Small (Negative); Nitrite,Urine Negative (Negative); PH,Urine 7.5 pH Units (5.0-8.0); Protein,Urine >=300 mg/dL (Neg-Trace); Specific Gravity,Urine 1.019 (1.010-1.025); Urobilinogen,Urine Normal (Normal)
[2019-05-13 19:08] LABS: Bacteria,Urine None Seen per hpf (None-Few); Hyaline Casts,Urine None Seen per lpf (None-Few); Squamous Epithelial Cell,Urine Many per lpf (None-Few); WBC,Urine 30-50 per hpf (0-3)
[2019-05-13] MEDS ORDERED: Ondansetron ODT 4 MG TAB.RAPDIS SL PRN (19:52)
[2019-05-13] MEDS ORDERED: Naloxone 0.4 MG/ML INJ IVP PRN (19:52)
[2019-05-13] MEDS ORDERED: D5% in Water 1,000 ML IVC PRN (19:55)
[2019-05-13] MEDS ORDERED: Dextrose Gel 15 GM/37.5 ML TUBE PO PRN ×2 (19:55)
[2019-05-13] MEDS ORDERED: *HR* Dextrose 50 % in Water (Syg) 50 ML SYRINGE IVP PRN (19:55)
[2019-05-13] MEDS: Insulin LISPRO 300 UNITS/3 ML VIAL SQ SCH (21:23)
[2019-05-13] MEDS: 0.9 % Sodium Chloride 1,000 ML IVC SCH (21:25)
[2019-05-13 21:43] LABS: Hepatitis B Surface Antibody < 3.10 mIU/mL
[2019-05-13 21:53] LABS: Hepatitis B Surface Antigen Nonreactive (Nonreactive)
[2019-05-13] MEDS: Insulin DETEMIR 100 UNIT/ML X5UNITS SQ SCH (22:18)
[2019-05-14] MEDS: Melatonin 3 MG TABLET PO SCH ×2 (00:22→20:08)
[2019-05-14 05:43] LABS: Basophils # 0.1 K/mcL (0.0-0.2); Basophils % 0.6 %; Eosinophils # 0.3 K/mcL (0.0-0.6); Eosinophils % 3.5 %; Hematocrit 31.5 % (37.5-50.1); Immature Granulocytes % 0.8 % (0-4); Lymphocytes # 1.2 K/mcL (0.6-4.6); Mean Corpuscular HGB Conc 32.4 g/dL (31.6-35.5); Mean Corpuscular Hemoglobin 29.9 pg (28.0-33.3); Mean Corpuscular Volume 92.4 fL (83.0-100.0); Mean Platelet Volume 9.7 fL (9.4-12.4); Monocytes # 0.5 K/mcL (0.0-1.3); Monocytes % 5.4 %; Neutrophils # 6.5 K/mcL (1.6-8.9); Platelet Count 251 K/mcL (140-400); Red Blood Count 3.41 M/mcL (4.19-5.50); Red Cell Distribution Width 14.6 % (11.5-14.5); Segmented Neutrophils % 75.7 %; White Blood Count 8.6 K/mcL (4.3-11.1)
[2019-05-14 05:50] LABS: Hemoglobin 10.2 g/dL (12.9-16.9)
[2019-05-14] MEDS: Piperacillin/Tazobactam 3.375 GM in 0.9 % Sodium Chloride Mini Bag 100 ML IVPB SCH ×2 (06:05→17:36)
[2019-05-14] MEDS: *HR* Heparin 5,000 UNIT/ML VIAL SQ SCH ×2 (06:05→17:36)
[2019-05-14 06:23] LABS: Calcium 7.9 mg/dL (8.6-10.3); Potassium 3.8 mEq/L (3.5-5.1)
[2019-05-14 06:44] LABS: Retculocyte # 0.06 M/mcL (0.05-0.10); Reticulocyte % 1.6 % (1.6-2.8)
[2019-05-14] MEDS: 0.9 % Sodium Chloride 1,000 ML IVC SCH (07:01)
[2019-05-14] MEDS ORDERED: Cholestyramine 4 GM POWD.PACK PO SCH ×2 (07:30→17:00)
[2019-05-14] MEDS: Insulin LISPRO 300 UNITS/3 ML VIAL SQ SCH ×4 (07:45→20:16)
[2019-05-14] MEDS: Furosemide 40 MG TABLET PO SCH (08:00)
[2019-05-14] MEDS: Loratadine 10 MG TABLET PO SCH (08:00)
[2019-05-14] MEDS: Silver Sulfadiazine 50 GM TUBE TP SCH (08:02)
[2019-05-14 08:24] LABS: Iron 112 mcg/dL (65-175)
[2019-05-14 08:25] LABS: % Iron Saturation 44 % (20-55); Ferritin > 1500 ng/mL (20-250); Transferrin 183 mg/dL (203-362)
[2019-05-14] MEDS ORDERED: 0.9 % Sodium Chloride 250 ML IVC PRN (09:50)
[2019-05-14] MEDS ORDERED: 0.9 % Sodium Chloride 1,000 ML PRIME SCH (10:00)
[2019-05-14] MEDS: Insulin DETEMIR 100 UNIT/ML X5UNITS SQ SCH (20:08)
[2019-05-14] MEDS ORDERED: Pregabalin 75 MG CAPSULE PO SCH (21:00)
[2019-05-14] MEDS ORDERED: NON-FORMULARY MEDICATION 1 EACH EACH (Pregabalin [Lyrica] 200 MG) PO SCH (21:00)
[2019-05-14 23:50] LABS: C-Reactive Protein 12 mg/L (Less than 10)
[2019-05-15 05:20] LABS: VBG Ionized Calcium 0.94 mmol/L (1.15-1.35)
[2019-05-15 05:24] LABS: Basophils # 0.1 K/mcL (0.0-0.2); Basophils % 0.8 %; Eosinophils # 0.4 K/mcL (0.0-0.6); Eosinophils % 6.2 %; Hematocrit 31.9 % (37.5-50.1); Hemoglobin 10.2 g/dL (12.9-16.9); Immature Granulocytes % 0.6 % (0-4); Lymphocytes # 1.4 K/mcL (0.6-4.6); Mean Corpuscular Hemoglobin 29.6 pg (28.0-33.3); Mean Corpuscular Volume 92.5 fL (83.0-100.0); Mean Platelet Volume 9.5 fL (9.4-12.4); Monocytes # 0.4 K/mcL (0.0-1.3); Monocytes % 6.1 %; Neutrophils # 4.1 K/mcL (1.6-8.9); Platelet Count 243 K/mcL (140-400); Red Blood Count 3.45 M/mcL (4.19-5.50); Red Cell Distribution Width 14.5 % (11.5-14.5); Segmented Neutrophils % 64.3 %; White Blood Count 6.4 K/mcL (4.3-11.1)
[2019-05-15] MEDS: Piperacillin/Tazobactam 3.375 GM in 0.9 % Sodium Chloride Mini Bag 100 ML IVPB SCH (05:52)
[2019-05-15] MEDS: *HR* Heparin 5,000 UNIT/ML VIAL SQ SCH ×2 (05:52→21:40)
[2019-05-15 06:03] LABS: Calcium 7.3 mg/dL (8.6-10.3)
[2019-05-15] MEDS: Loratadine 10 MG TABLET PO SCH (08:13)
[2019-05-15] MEDS: Furosemide 40 MG TABLET PO SCH (08:13)
[2019-05-15] MEDS: Silver Sulfadiazine 50 GM TUBE TP SCH (08:13)
[2019-05-15] MEDS: Insulin LISPRO 300 UNITS/3 ML VIAL SQ SCH ×4 (08:13→21:39)
[2019-05-15] MEDS: Calcium Gluconate 1gm/50mL 1 GM/50 ML BAG IVPB SCH ×2 (09:17→10:20)
[2019-05-15] MEDS ORDERED: Lidocaine -MPF 2% 2 ML VIAL ONE ×2 (11:00→14:02)
[2019-05-15] MEDS ORDERED: Ropivicaine 0.25% 20 ml Syringe INTRAART ONE (11:35)
[2019-05-15] MEDS ORDERED: Calcium Gluconate 1,000 MG/10 ML VIAL ONE (13:57)
[2019-05-15] MEDS ORDERED: Propofol 500 MG/50 ML INFUS..BTL ONE (14:02)
[2019-05-15] MEDS ORDERED: *HR* FentaNYL (PF) 100 MCG/2 ML VIAL ONE (15:36)
[2019-05-15] MEDS ORDERED: Bupivacaine/EPI 1:200k 0.5%PF 10 ML VIAL ONE (15:49)
[2019-05-15] MEDS ORDERED: Vancomycin 1,000 MG VIAL ONE (15:57)
[2019-05-15] MEDS ORDERED: Lidocaine/EPI 1:200k 1% PF 10 ML VIAL ONE (16:01)
[2019-05-15] MEDS ORDERED: Naloxone 0.4 MG/ML INJ IVP PRN (17:32)
[2019-05-15] MEDS ORDERED: Ondansetron ODT 4 MG TAB.RAPDIS SL PRN (17:32)
[2019-05-15] MEDS ORDERED: 0.9 % Sodium Chloride 250 ML IVC PRN (17:32)
[2019-05-15] MEDS ORDERED: D5% in Water 1,000 ML IVC PRN (17:32)
[2019-05-15] MEDS ORDERED: 0.9 % Sodium Chloride 1,000 ML PRIME SCH (17:32)
[2019-05-15] MEDS ORDERED: *HR* Dextrose 50 % in Water (Syg) 50 ML SYRINGE IVP PRN (17:32)
[2019-05-15] MEDS ORDERED: Dextrose Gel 15 GM/37.5 ML TUBE PO PRN ×2 (17:32)
[2019-05-15] MEDS ORDERED: Piperacillin/Tazobactam 3.375 GM in 0.9 % Sodium Chloride Mini Bag 100 ML IVPB SCH ×2 (18:00→21:15)
[2019-05-15] MEDS: Insulin DETEMIR 100 UNIT/ML X5UNITS SQ SCH (21:40)
[2019-05-15] MEDS: Melatonin 3 MG TABLET PO SCH (21:41)
[2019-05-15] MEDS: Pregabalin 75 MG CAPSULE PO SCH (21:41)
[2019-05-16 04:56] LABS: Basophils # 0.1 K/mcL (0.0-0.2); Basophils % 0.7 %; Eosinophils # 0.4 K/mcL (0.0-0.6); Eosinophils % 5.8 %; Hematocrit 28.5 % (37.5-50.1); Hemoglobin 9.6 g/dL (12.9-16.9); Immature Granulocytes % 0.5 % (0-4); Lymphocytes # 1.4 K/mcL (0.6-4.6); Lymphocytes % 19.4 %; Mean Corpuscular HGB Conc 33.7 g/dL (31.6-35.5); Mean Corpuscular Hemoglobin 30.4 pg (28.0-33.3); Mean Corpuscular Volume 90.2 fL (83.0-100.0); Mean Platelet Volume 9.6 fL (9.4-12.4); Monocytes # 0.4 K/mcL (0.0-1.3); Monocytes % 5.6 %; Platelet Count 248 K/mcL (140-400); Red Blood Count 3.16 M/mcL (4.19-5.50); Red Cell Distribution Width 14.6 % (11.5-14.5); White Blood Count 7.3 K/mcL (4.3-11.1)
[2019-05-16 05:05] LABS: Calcium 7.4 mg/dL (8.6-10.3); Potassium 4.4 mEq/L (3.5-5.1)
[2019-05-16] MEDS: *HR* Heparin 5,000 UNIT/ML VIAL SQ SCH ×2 (06:17→17:02)
[2019-05-16] MEDS ORDERED: 0.9 % Sodium Chloride 250 ML IVC PRN (08:04)
[2019-05-16] MEDS ORDERED: 0.9 % Sodium Chloride 1,000 ML PRIME SCH (08:15)
[2019-05-16] MEDS: Piperacillin/Tazobactam 3.375 GM in 0.9 % Sodium Chloride Mini Bag 100 ML IVPB SCH ×2 (08:22→17:06)
[2019-05-16] MEDS: Insulin LISPRO 300 UNITS/3 ML VIAL SQ SCH ×4 (08:30→22:00)
[2019-05-16] MEDS: Furosemide 40 MG TABLET PO SCH (08:33)
[2019-05-16] MEDS: Loratadine 10 MG TABLET PO SCH (08:34)
[2019-05-16] MEDS: Silver Sulfadiazine 50 GM TUBE TP SCH (08:39)
[2019-05-16] MEDS ORDERED: *HR* OxyCODONE Immed Rel 5 MG TABLET PO PRN (09:30)
[2019-05-16] MEDS: *HR* OxyCODONE Immed Rel 5 MG TABLET PO PRN ×3 (14:09→22:00)
[2019-05-16] MEDS: Insulin DETEMIR 100 UNIT/ML X5UNITS SQ SCH (22:00)
[2019-05-16] MEDS: Pregabalin 75 MG CAPSULE PO SCH (22:00)
[2019-05-16] MEDS: Melatonin 3 MG TABLET PO SCH (22:47)
[2019-05-17] MEDS ORDERED: Acetaminophen IV 500 MG/50 ML INFUS..BTL IVPB ONE (03:49)
[2019-05-17] MEDS: *HR* Heparin 5,000 UNIT/ML VIAL SQ SCH ×2 (05:23→17:22)
[2019-05-17] MEDS: Piperacillin/Tazobactam 3.375 GM in 0.9 % Sodium Chloride Mini Bag 100 ML IVPB SCH ×2 (05:29→17:22)
[2019-05-17 05:45] LABS: Hematocrit 26.9 % (37.5-50.1); Mean Corpuscular HGB Conc 33.5 g/dL (31.6-35.5); Mean Corpuscular Hemoglobin 30.5 pg (28.0-33.3); Mean Corpuscular Volume 91.2 fL (83.0-100.0); Mean Platelet Volume 9.8 fL (9.4-12.4); Platelet Count 236 K/mcL (140-400); Red Blood Count 2.95 M/mcL (4.19-5.50); Red Cell Distribution Width 15.1 % (11.5-14.5); White Blood Count 7.1 K/mcL (4.3-11.1)
[2019-05-17 06:05] LABS: Calcium 7.3 mg/dL (8.6-10.3); Magnesium 1.6 mg/dL (1.6-2.6); Phosphorous 3.3 mg/dL (2.7-4.5); Potassium 4.3 mEq/L (3.5-5.1)
[2019-05-17] MEDS: Furosemide 40 MG TABLET PO SCH (08:54)
[2019-05-17] MEDS: Loratadine 10 MG TABLET PO SCH (08:54)
[2019-05-17] MEDS: Insulin LISPRO 300 UNITS/3 ML VIAL SQ SCH ×4 (08:57→22:48)
[2019-05-17] MEDS: Silver Sulfadiazine 50 GM TUBE TP SCH (08:58)
[2019-05-17] MEDS: Melatonin 3 MG TABLET PO SCH (22:46)
[2019-05-17] MEDS: *HR* OxyCODONE Immed Rel 5 MG TABLET PO PRN (22:47)
[2019-05-17] MEDS: Pregabalin 75 MG CAPSULE PO SCH (22:47)
[2019-05-17] MEDS: Insulin DETEMIR 100 UNIT/ML X5UNITS SQ SCH (22:48)
[2019-05-18 05:12] LABS: Hematocrit 26.6 % (37.5-50.1); Hemoglobin 8.6 g/dL (12.9-16.9); Mean Corpuscular HGB Conc 32.3 g/dL (31.6-35.5); Mean Corpuscular Hemoglobin 30.2 pg (28.0-33.3); Mean Corpuscular Volume 93.3 fL (83.0-100.0); Mean Platelet Volume 9.3 fL (9.4-12.4); Platelet Count 227 K/mcL (140-400); Red Blood Count 2.85 M/mcL (4.19-5.50); Red Cell Distribution Width 14.9 % (11.5-14.5)
[2019-05-18 05:31] LABS: Calcium 7.2 mg/dL (8.6-10.3); Potassium 4.9 mEq/L (3.5-5.1)
[2019-05-18] MEDS: *HR* Heparin 5,000 UNIT/ML VIAL SQ SCH ×2 (06:26→17:32)
[2019-05-18] MEDS: Piperacillin/Tazobactam 3.375 GM in 0.9 % Sodium Chloride Mini Bag 100 ML IVPB SCH ×2 (06:27→17:33)
[2019-05-18] MEDS: Loratadine 10 MG TABLET PO SCH (09:49)
[2019-05-18] MEDS: Furosemide 40 MG TABLET PO SCH (09:49)
[2019-05-18] MEDS: Insulin LISPRO 300 UNITS/3 ML VIAL SQ SCH ×4 (09:50→22:54)
[2019-05-18] MEDS: Silver Sulfadiazine 50 GM TUBE TP SCH (09:50)
[2019-05-18] MEDS: *HR* OxyCODONE Immed Rel 5 MG TABLET PO PRN ×2 (11:40→23:00)
[2019-05-18] MEDS: 0.9 % Sodium Chloride 1,000 ML IVC SCH (15:14)
[2019-05-18] MEDS: Insulin DETEMIR 100 UNIT/ML X5UNITS SQ SCH (23:00)
[2019-05-18] MEDS: Pregabalin 75 MG CAPSULE PO SCH (23:01)
[2019-05-18] MEDS: Melatonin 3 MG TABLET PO SCH (23:01)
[2019-05-19] MEDS: 0.9 % Sodium Chloride 1,000 ML IVC SCH (01:20)
[2019-05-19] MEDS: Piperacillin/Tazobactam 3.375 GM in 0.9 % Sodium Chloride Mini Bag 100 ML IVPB SCH ×2 (06:08→17:22)
[2019-05-19] MEDS: *HR* Heparin 5,000 UNIT/ML VIAL SQ SCH ×2 (06:08→17:22)
[2019-05-19 06:25] LABS: Hematocrit 26.4 % (37.5-50.1); Hemoglobin 8.8 g/dL (12.9-16.9); Mean Corpuscular HGB Conc 33.3 g/dL (31.6-35.5); Mean Corpuscular Hemoglobin 30.7 pg (28.0-33.3); Mean Platelet Volume 9.8 fL (9.4-12.4); Platelet Count 257 K/mcL (140-400); Red Blood Count 2.87 M/mcL (4.19-5.50); Red Cell Distribution Width 15.1 % (11.5-14.5); White Blood Count 8.4 K/mcL (4.3-11.1)
[2019-05-19 06:45] LABS: Calcium 7.3 mg/dL (8.6-10.3); Potassium 5.7 mEq/L (3.5-5.1)
[2019-05-19] MEDS ORDERED: 0.9 % Sodium Chloride 250 ML IVC PRN (07:31)
[2019-05-19] MEDS: Silver Sulfadiazine 50 GM TUBE TP SCH (08:22)
[2019-05-19] MEDS: Insulin LISPRO 300 UNITS/3 ML VIAL SQ SCH ×3 (08:22→17:21)
[2019-05-19] MEDS: Loratadine 10 MG TABLET PO SCH (08:23)
[2019-05-19] MEDS: Furosemide 40 MG TABLET PO SCH (08:23)
[2019-05-19] MEDS: *HR* OxyCODONE Immed Rel 5 MG TABLET PO PRN (08:29)
[2019-05-19] MEDS ORDERED: levoFLOXacin 750 MG TABLET PO ONE (13:32)
[2019-05-19 16:02] VITALS: BP 131/74
[2019-05-19] MEDS ORDERED: Aminoglycoside Consult 1 EACH MC ONE (17:29)
== END 2019-05-19 17:30 | DRG 314 ==
LOC: 2ANU 16:45 → EMEROOARM 16:45 → SUATTDRO 19:03 → 2ANU 20:32
PROVIDERS: ADMIT Student in an Organized Health Care Education/Training Program; ATTEND Internal Medicine

== ENCOUNTER 2019-07-26 16:37 | Inpatient (IN) ==
[2019-07-26 18:14] LABS: Basophils # 0.1 K/mcL (0.0-0.2); Basophils % 0.6 %; Eosinophils # 0.4 K/mcL (0.0-0.6); Hematocrit 35.1 % (37.5-50.1); Hemoglobin 12.7 g/dL (12.9-16.9); Immature Granulocytes % 1.2 % (0-4); Lymphocytes # 1.4 K/mcL (0.6-4.6); Lymphocytes % 10.8 %; Mean Corpuscular HGB Conc 36.2 g/dL (31.6-35.5); Mean Corpuscular Hemoglobin 31.5 pg (28.0-33.3); Monocytes # 0.7 K/mcL (0.0-1.3); Monocytes % 5.6 %; Neutrophils # 10.1 K/mcL (1.6-8.9); Platelet Count 374 K/mcL (140-400); Red Blood Count 4.03 M/mcL (4.19-5.50); Red Cell Distribution Width 13.2 % (11.5-14.5); Segmented Neutrophils % 78.8 %; White Blood Count 12.8 K/mcL (4.3-11.1)
[2019-07-26 18:20] LABS: Mean Corpuscular Volume 87.1 fL (83.0-100.0)
[2019-07-26 18:27] LABS: Calcium 9.1 mg/dL (8.6-10.3); Potassium 3.5 mEq/L (3.5-5.1)
[2019-07-26 20:29] LABS: Bilirubin,Urine Small (Negative); Blood,Urine Trace (Negative); Clarity,Urine Clear (Clear); Color,Urine Yellow (Yellow); Glucose,Urine (UA) >=1000 mg/dL (Normal); Ketones,Urine Negative (Negative); Leukocyte Esterase,Urine Small (Negative); Nitrite,Urine Negative (Negative); Protein,Urine >=300 mg/dL (Neg-Trace); Specific Gravity,Urine 1.022 (1.010-1.025); Urobilinogen,Urine Normal (Normal)
[2019-07-26 20:31] LABS: Hyaline Casts,Urine None Seen per lpf (None-Few); Squamous Epithelial Cell,Urine Many per lpf (None-Few); WBC,Urine 50-100 per hpf (0-3)
[2019-07-26] MEDS ORDERED: 0.9 % Sodium Chloride 1,000 ML IVC ONE (20:39)
[2019-07-26 20:41] LABS: Bacteria,Urine Few per hpf (None-Few)
[2019-07-26 21:42] LABS: Basophils # 0.1 K/mcL (0.0-0.2); Basophils % 0.5 %; Eosinophils # 0.3 K/mcL (0.0-0.6); Eosinophils % 1.9 %; Hematocrit 33.9 % (37.5-50.1); Hemoglobin 12.5 g/dL (12.9-16.9); Immature Granulocytes % 1.9 % (0-4); Lymphocytes # 1.5 K/mcL (0.6-4.6); Lymphocytes % 10.7 %; Mean Corpuscular HGB Conc 36.9 g/dL (31.6-35.5); Mean Corpuscular Hemoglobin 31.9 pg (28.0-33.3); Mean Corpuscular Volume 86.5 fL (83.0-100.0); Mean Platelet Volume 9.7 fL (9.4-12.4); Monocytes # 0.8 K/mcL (0.0-1.3); Monocytes % 5.7 %; Neutrophils # 10.8 K/mcL (1.6-8.9); Platelet Count 347 K/mcL (140-400); Red Blood Count 3.92 M/mcL (4.19-5.50); Red Cell Distribution Width 13.2 % (11.5-14.5); Segmented Neutrophils % 79.3 %; White Blood Count 13.6 K/mcL (4.3-11.1)
[2019-07-26 21:43] LABS: INR 1.4; Prothrombin Time 16.1 Seconds (9.4-12.1)
[2019-07-26 21:45] LABS: Activated Partial Thrombo Time 41.4 Seconds (26.0-36.0)
[2019-07-26] MEDS ORDERED: Ondansetron 4 MG/2 ML VIAL IVP ONE (21:45)
[2019-07-26 21:59] LABS: Alanine Aminotransferase 24 Units/L (7-52); Albumin 4.1 g/dL (3.5-5.7); Albumin/Globulin Ratio 1.4 (1.1-2.2); Alkaline Phosphatase 77 Units/L (34-104); Amylase 17 Units/L (29-103); Aspartate Amino Transferase 25 Units/L (13-39); BUN/Creatinine Ratio 7 (6-26); Bilirubin,Direct 0.1 mg/dL (0.0-0.2); Bilirubin,Indirect 0.3 mg/dL (0.0-1.0); Bilirubin,Total 0.4 mg/dL (0.3-1.0); Blood Urea Nitrogen 32 mg/dL (8-23); C-Reactive Protein 18 mg/L (Less than 10); Calcium 8.6 mg/dL (8.6-10.3); Carbon Dioxide 20 mEq/L (23-29); Chloride 95 mEq/L (98-107); Creatine Kinase 199 Units/L (30-223); Glucose 279 mg/dL (70-105); Lipase 25 Units/L (11-82); Osmolality,Calculated 293 (280-300); Potassium 3.3 mEq/L (3.5-5.1); Sodium 133 mEq/L (136-145); Total Protein 7.1 g/dL (6.4-8.9); Troponin I < 0.03 ng/mL (< 0.04); eGFR For African Americans 16 (> 60); eGFR For Non-African Americans 13 (> 60)
[2019-07-26 22:13] LABS: Thyroid Stimulating Hormone 5.209 mcIU/mL (0.340-5.600)
[2019-07-27] MEDS ORDERED: Isovue-370 500 ML BOTTLE IVP ONE (02:32)
[2019-07-27] MEDS ORDERED: Naloxone 0.4 MG/ML INJ IVP PRN (02:37)
[2019-07-27] MEDS ORDERED: Dextrose Gel 15 GM/37.5 ML TUBE PO PRN ×2 (02:37)
[2019-07-27] MEDS ORDERED: D5% in Water 1,000 ML IVC PRN (02:37)
[2019-07-27] MEDS ORDERED: *HR* Dextrose 50 % in Water (Syg) 50 ML SYRINGE IVP PRN (02:37)
[2019-07-27 04:19] LABS: Retculocyte # 0.05 M/mcL (0.05-0.10); Reticulocyte % 1.2 % (1.6-2.8)
[2019-07-27 04:35] LABS: % Iron Saturation 34 % (20-55); Iron 67 mcg/dL (65-175); Magnesium 1.7 mg/dL (1.6-2.6); Phosphorous 3.2 mg/dL (2.7-4.5); Transferrin 139 mg/dL (203-362)
[2019-07-27 05:08] LABS: Ferritin > 1500 ng/mL (20-250)
[2019-07-27] MEDS ORDERED: Potassium Chloride Elixir 20 MEQ/15 ML UDC PO ONE (06:23)
[2019-07-27] MEDS ORDERED: 0.9 % Sodium Chloride 1,000 ML IVC SCH (06:30)
[2019-07-27] MEDS: Insulin LISPRO 300 UNITS/3 ML VIAL SQ SCH ×3 (08:18→20:00)
[2019-07-27] MEDS: *HR* Heparin 5,000 UNIT/ML VIAL SQ SCH ×2 (08:18→17:45)
[2019-07-27 10:04] LABS: Bilirubin,Urine Small (Negative); Blood,Urine Small (Negative); Clarity,Urine Clear (Clear); Color,Urine Yellow (Yellow); Glucose,Urine (UA) >=1000 mg/dL (Normal); Ketones,Urine Trace mg/dL (Negative); Leukocyte Esterase,Urine Small (Negative); Nitrite,Urine Negative (Negative); PH,Urine 6.5 pH Units (5.0-8.0); Protein,Urine >=300 mg/dL (Neg-Trace); Specific Gravity,Urine > 1.030 (1.010-1.025); Urobilinogen,Urine Normal (Normal)
[2019-07-27 10:07] LABS: Bacteria,Urine None Seen per hpf (None-Few); Hyaline Casts,Urine None Seen per lpf (None-Few); Squamous Epithelial Cell,Urine Many per lpf (None-Few); WBC,Urine 50-100 per hpf (0-3)
[2019-07-27 10:08] LABS: Protein/Creatinine Ratio,Urine 4.83 mg/mg (0.00-0.20)
[2019-07-27 10:22] LABS: RBC,Urine 0-3 per hpf (0-3)
[2019-07-27 13:22] LABS: Adenovirus F 40/41 PCR Not detected (Not detect); Astrovirus PCR Not detected (Not detect); C.difficile Toxin A/B Gene PCR Not detected (Not detect); Campylobacter by PCR Not detected (Not detect); Cryptosporidium by PCR Not detected (Not detect); Cyclospora cayetanensis PCR Not detected (Not detect); E. coli O157 by PCR Not detected (Not detect); Entamoeba histolytica PCR Not detected (Not detect); Enteroaggregative E.coli(EAEC) Not detected (Not detect); Enteropathogenic E.coli(EPEC) Not detected (Not detect); Enterotoxigenic E.coli (ETEC) Not detected (Not detect); Giardia lamblia PCR Not detected (Not detect); Norovirus GI/GII PCR Not detected (Not detect); Plesiomonas shigelloides PCR Not detected (Not detect); Rotavirus A PCR Not detected (Not detect); Salmonella PCR Not detected (Not detect); Sapovirus PCR Not detected (Not detect); Shig/EnteroinvasiveE coli EIEC Not detected (Not detect); Shigalike tox-prod E coli STEC Not detected (Not detect); Vibrio PCR Not detected (Not detect); Vibrio cholerae PCR Not detected (Not detect); Yersinia enterocolitica PCR Not detected (Not detect)
[2019-07-27] MEDS: Ondansetron 4 MG/2 ML VIAL IVP PRN (15:02)
[2019-07-28] MEDS: *HR* Heparin 5,000 UNIT/ML VIAL SQ SCH ×2 (04:57→17:29)
[2019-07-28 06:59] LABS: Basophils # 0.1 K/mcL (0.0-0.2); Basophils % 0.8 %; Eosinophils # 0.4 K/mcL (0.0-0.6); Eosinophils % 4.4 %; Hematocrit 31.4 % (37.5-50.1); Hemoglobin 11.4 g/dL (12.9-16.9); Immature Granulocytes % 2.3 % (0-4); Lymphocytes # 1.3 K/mcL (0.6-4.6); Lymphocytes % 13.4 %; Mean Corpuscular HGB Conc 36.3 g/dL (31.6-35.5); Mean Corpuscular Hemoglobin 31.9 pg (28.0-33.3); Mean Platelet Volume 9.5 fL (9.4-12.4); Monocytes # 0.5 K/mcL (0.0-1.3); Monocytes % 5.2 %; Neutrophils # 7.4 K/mcL (1.6-8.9); Platelet Count 284 K/mcL (140-400); Red Blood Count 3.57 M/mcL (4.19-5.50); Red Cell Distribution Width 13.5 % (11.5-14.5); Segmented Neutrophils % 73.9 %
[2019-07-28 07:29] LABS: Potassium 3.4 mEq/L (3.5-5.1)
[2019-07-28] MEDS ORDERED: *HR* Heparin 10,000 UNIT/10 ML VIAL IV PRN (08:25)
[2019-07-28] MEDS ORDERED: 0.9 % Sodium Chloride 250 ML IVC PRN (08:25)
[2019-07-28] MEDS ORDERED: 0.9 % Sodium Chloride 1,000 ML PRIME SCH (08:30)
[2019-07-28] MEDS: Insulin LISPRO 300 UNITS/3 ML VIAL SQ SCH ×4 (08:43→22:27)
[2019-07-28 09:09] LABS: Estimated Average Glucose 214 mg/dl
[2019-07-28 11:19] LABS: Hepatitis B Surface Antibody < 3.10 mIU/mL
[2019-07-28 11:32] LABS: Hepatitis B Surface Antigen Nonreactive (Nonreactive)
[2019-07-28] MEDS ORDERED: Ondansetron 4 MG/2 ML VIAL IVP PRN (13:14)
[2019-07-28] MEDS: Ondansetron 4 MG/2 ML VIAL IVP PRN (15:44)
[2019-07-28] MEDS: Melatonin 3 MG TABLET PO SCH (22:26)
[2019-07-28] MEDS: Pregabalin 50 MG CAPSULE PO SCH (22:26)
[2019-07-29] MEDS ORDERED: Acetaminophen IV 1,000 MG/100 ML INFUS..BTL IVPB ONE (01:00)
[2019-07-29] MEDS: *HR* Heparin 5,000 UNIT/ML VIAL SQ SCH ×2 (06:28→17:00)
[2019-07-29] MEDS: Insulin LISPRO 300 UNITS/3 ML VIAL SQ SCH ×4 (08:03→21:47)
[2019-07-29] MEDS: Pregabalin 50 MG CAPSULE PO SCH ×3 (08:22→21:47)
[2019-07-29] MEDS: Acetaminophen 325 MG TABLET PO PRN (12:53)
[2019-07-29] MEDS: Cholestyramine 4 GM POWD.PACK PO SCH (16:59)
[2019-07-29] MEDS: Melatonin 3 MG TABLET PO SCH (21:47)
[2019-07-30] MEDS: *HR* Heparin 5,000 UNIT/ML VIAL SQ SCH ×2 (06:18→15:54)
[2019-07-30 08:15] LABS: Basophils # 0.1 K/mcL (0.0-0.2); Eosinophils # 0.5 K/mcL (0.0-0.6); Eosinophils % 4.3 %; Hematocrit 33.7 % (37.5-50.1); Hemoglobin 12.1 g/dL (12.9-16.9); Immature Granulocytes % 3.2 % (0-4); Lymphocytes % 19.2 %; Mean Corpuscular HGB Conc 35.9 g/dL (31.6-35.5); Mean Corpuscular Hemoglobin 31.6 pg (28.0-33.3); Mean Platelet Volume 9.7 fL (9.4-12.4); Monocytes # 0.6 K/mcL (0.0-1.3); Monocytes % 5.3 %; Neutrophils # 7.1 K/mcL (1.6-8.9); Platelet Count 273 K/mcL (140-400); Red Blood Count 3.83 M/mcL (4.19-5.50); Red Cell Distribution Width 13.9 % (11.5-14.5); White Blood Count 10.6 K/mcL (4.3-11.1)
[2019-07-30] MEDS: Cholestyramine 4 GM POWD.PACK PO SCH ×2 (08:22→15:53)
[2019-07-30] MEDS: Pregabalin 50 MG CAPSULE PO SCH ×3 (08:24→21:23)
[2019-07-30] MEDS: Insulin LISPRO 300 UNITS/3 ML VIAL SQ SCH ×4 (08:25→21:25)
[2019-07-30] MEDS: Acetaminophen 325 MG TABLET PO PRN (08:27)
[2019-07-30 08:35] LABS: Potassium 4.2 mEq/L (3.5-5.1)
[2019-07-30] MEDS ORDERED: Aminoglycoside Consult 1 EACH MC ONE (08:41)
[2019-07-30] MEDS ORDERED: 0.9 % Sodium Chloride 250 ML IVC PRN (09:13)
[2019-07-30] MEDS ORDERED: *HR* Heparin 10,000 UNIT/10 ML VIAL IV PRN (09:13)
[2019-07-30] MEDS ORDERED: 0.9 % Sodium Chloride 1,000 ML ONE (09:33)
[2019-07-30] MEDS ORDERED: Albumin 25% 25gram/100mL 25 GM/100 ML IV.SOLN IVPB ONE (10:06)
[2019-07-30] MEDS: VISINE TEARS DROPS 15 ML 1 DROP BOTTLE BOTH EYES PRN (15:56)
[2019-07-30] MEDS: Melatonin 3 MG TABLET PO SCH (21:23)
[2019-07-31] MEDS: *HR* Heparin 5,000 UNIT/ML VIAL SQ SCH ×2 (04:55→16:48)
[2019-07-31 06:54] LABS: Hematocrit 34.1 % (37.5-50.1); Hemoglobin 11.6 g/dL (12.9-16.9); Mean Corpuscular Hemoglobin 31.9 pg (28.0-33.3); Mean Corpuscular Volume 93.7 fL (83.0-100.0); Platelet Count 269 K/mcL (140-400); Red Blood Count 3.64 M/mcL (4.19-5.50); Red Cell Distribution Width 13.8 % (11.5-14.5)
[2019-07-31 06:56] LABS: White Blood Count 18.4 K/mcL (4.3-11.1)
[2019-07-31 07:06] LABS: Calcium 8.3 mg/dL (8.6-10.3); Potassium 4.9 mEq/L (3.5-5.1)
[2019-07-31] MEDS: Cholestyramine 4 GM POWD.PACK PO SCH ×2 (08:55→16:43)
[2019-07-31] MEDS: Insulin LISPRO 300 UNITS/3 ML VIAL SQ SCH ×4 (08:59→21:38)
[2019-07-31] MEDS: Pregabalin 50 MG CAPSULE PO SCH ×3 (09:00→21:39)
[2019-07-31] MEDS: VISINE TEARS DROPS 15 ML 1 DROP BOTTLE BOTH EYES PRN ×2 (09:01→16:46)
[2019-07-31 15:49] LABS: Hematocrit 34.8 % (37.5-50.1); Hemoglobin 12.1 g/dL (12.9-16.9); Mean Corpuscular HGB Conc 34.8 g/dL (31.6-35.5); Mean Corpuscular Hemoglobin 31.5 pg (28.0-33.3); Mean Corpuscular Volume 90.6 fL (83.0-100.0); Mean Platelet Volume 10.3 fL (9.4-12.4); Platelet Count 340 K/mcL (140-400); Red Blood Count 3.84 M/mcL (4.19-5.50); Red Cell Distribution Width 13.8 % (11.5-14.5); White Blood Count 20.8 K/mcL (4.3-11.1)
[2019-07-31 16:33] LABS: Bilirubin,Urine Small (Negative); Blood,Urine Trace (Negative); Clarity,Urine Cloudy (Clear); Color,Urine Dark Yellow (Yellow); Glucose,Urine (UA) 500 mg/dL (Normal); Ketones,Urine Negative (Negative); Leukocyte Esterase,Urine Large (Negative); Nitrite,Urine Negative (Negative); PH,Urine 5.5 pH Units (5.0-8.0); Protein,Urine >=300 mg/dL (Neg-Trace); Specific Gravity,Urine 1.029 (1.010-1.025); Urobilinogen,Urine Normal (Normal)
[2019-07-31] MEDS ORDERED: Isovue-370 500 ML BOTTLE IVP ONE (16:33)
[2019-07-31 16:35] LABS: Bacteria,Urine None Seen per hpf (None-Few); Hyaline Casts,Urine Moderate per lpf (None-Few); Squamous Epithelial Cell,Urine Many per lpf (None-Few); WBC,Urine TNTC per hpf (0-3)
[2019-07-31] MEDS: Piperacillin/Tazobactam 3.375 GM in 0.9 % Sodium Chloride Mini Bag 100 ML IVPB SCH (16:43)
[2019-07-31 17:05] LABS: Calcium Oxalate Crystals,Urine Present; Renal Epithelial Cells,Urine Few per hpf (None-Few); Transitional Epi Cells,Urine Few per hpf (None-Few)
[2019-07-31] MEDS: Melatonin 3 MG TABLET PO SCH (21:39)
[2019-08-01] MEDS: Piperacillin/Tazobactam 3.375 GM in 0.9 % Sodium Chloride Mini Bag 100 ML IVPB SCH (03:03)
[2019-08-01] MEDS: *HR* Heparin 5,000 UNIT/ML VIAL SQ SCH ×2 (05:50→17:50)
[2019-08-01 07:25] LABS: Hematocrit 27.5 % (37.5-50.1); Hemoglobin 10.1 g/dL (12.9-16.9); Mean Corpuscular HGB Conc 36.7 g/dL (31.6-35.5); Mean Corpuscular Hemoglobin 32.2 pg (28.0-33.3); Mean Corpuscular Volume 87.6 fL (83.0-100.0); Mean Platelet Volume 10.8 fL (9.4-12.4); Platelet Count 230 K/mcL (140-400); Red Blood Count 3.14 M/mcL (4.19-5.50); Red Cell Distribution Width 13.8 % (11.5-14.5); White Blood Count 18.8 K/mcL (4.3-11.1)
[2019-08-01] MEDS ORDERED: 0.9 % Sodium Chloride 250 ML IVC PRN (07:33)
[2019-08-01] MEDS ORDERED: *HR* Heparin 10,000 UNIT/10 ML VIAL IV PRN (07:33)
[2019-08-01] MEDS ORDERED: 0.9 % Sodium Chloride 1,000 ML PRIME SCH (07:45)
[2019-08-01] MEDS: Cholestyramine 4 GM POWD.PACK PO SCH ×2 (08:12→17:47)
[2019-08-01] MEDS: Insulin LISPRO 300 UNITS/3 ML VIAL SQ SCH ×4 (08:13→22:18)
[2019-08-01] MEDS: Pregabalin 50 MG CAPSULE PO SCH ×3 (08:14→20:42)
[2019-08-01 08:21] LABS: Calcium 7.3 mg/dL (8.6-10.3); Potassium 4.9 mEq/L (3.5-5.1)
[2019-08-01] MEDS ORDERED: Albumin 25% 25gram/100mL 25 GM/100 ML IV.SOLN IVPB PRN (09:00)
[2019-08-01] MEDS ORDERED: Albumin 25% 25gram/100mL 25 GM/100 ML IV.SOLN ONE (09:02)
[2019-08-01] MEDS ORDERED: 0.9 % Sodium Chloride 250 ML IVC ONE (09:39)
[2019-08-01] MEDS ORDERED: Aminoglycoside Consult 1 EACH MC ONE (14:04)
[2019-08-01] MEDS: Melatonin 3 MG TABLET PO SCH (20:42)
[2019-08-02 02:29] LABS: Hematocrit 26.8 % (37.5-50.1); Hemoglobin 9.4 g/dL (12.9-16.9); Mean Corpuscular HGB Conc 35.1 g/dL (31.6-35.5); Mean Corpuscular Hemoglobin 32.4 pg (28.0-33.3); Mean Corpuscular Volume 92.4 fL (83.0-100.0); Mean Platelet Volume 10.5 fL (9.4-12.4); Platelet Count 266 K/mcL (140-400); Red Cell Distribution Width 14.1 % (11.5-14.5); White Blood Count 14.1 K/mcL (4.3-11.1)
[2019-08-02 02:56] LABS: Calcium 8.2 mg/dL (8.6-10.3); Potassium 4.3 mEq/L (3.5-5.1)
[2019-08-02] MEDS: *HR* Heparin 5,000 UNIT/ML VIAL SQ SCH (05:33)
[2019-08-02 07:28] VITALS: BP 91/51
[2019-08-02] MEDS: VISINE TEARS DROPS 15 ML 1 DROP BOTTLE BOTH EYES PRN (08:22)
[2019-08-02] MEDS: Cholestyramine 4 GM POWD.PACK PO SCH (08:22)
[2019-08-02] MEDS: Pregabalin 50 MG CAPSULE PO SCH ×2 (08:22→13:16)
[2019-08-02] MEDS: Insulin LISPRO 300 UNITS/3 ML VIAL SQ SCH ×2 (08:22→13:16)
[2019-08-02] MEDS: Acetaminophen 325 MG TABLET PO PRN (08:33)
== END 2019-08-02 14:05 | disposition home health service (06) | DRG 720 ==
LOC: CDU 16:37 → EMEROOARM 16:37 → SUATTDRO 23:34 → CDU 07-27 01:28 → 3ANU 07-27 17:22 → SUATTDRO 07-28 15:36
PROVIDERS: ADMIT Internal Medicine; ATTEND Family Medicine

== ENCOUNTER 2019-10-02 10:18 | Inpatient (IN) ==
[2019-10-02] MEDS ORDERED: Piperacillin/Tazobactam 3.375 GM in Water for inj. (sterile) 20 ML IVP ONE (10:33)
[2019-10-02 11:15] LABS: Basophils # 0.1 K/mcL (0.0-0.2); Basophils % 0.6 %; Eosinophils # 0.7 K/mcL (0.0-0.6); Eosinophils % 7.1 %; Hematocrit 34.9 % (37.5-50.1); Hemoglobin 11.7 g/dL (12.9-16.9); Immature Granulocytes % 0.5 % (0-4); Lymphocytes # 1.4 K/mcL (0.6-4.6); Lymphocytes % 14.8 %; Mean Corpuscular HGB Conc 33.5 g/dL (31.6-35.5); Mean Corpuscular Hemoglobin 31.2 pg (28.0-33.3); Mean Corpuscular Volume 93.1 fL (83.0-100.0); Mean Platelet Volume 9.2 fL (9.4-12.4); Monocytes # 0.5 K/mcL (0.0-1.3); Monocytes % 5.6 %; Neutrophils # 6.8 K/mcL (1.6-8.9); Platelet Count 302 K/mcL (140-400); Red Blood Count 3.75 M/mcL (4.19-5.50); Red Cell Distribution Width 13.2 % (11.5-14.5); Segmented Neutrophils % 71.4 %; White Blood Count 9.6 K/mcL (4.3-11.1)
[2019-10-02 11:35] LABS: Albumin 3.8 g/dL (3.5-5.7); Albumin/Globulin Ratio 1.3 (1.1-2.2); Bilirubin,Total 0.5 mg/dL (0.3-1.0); Calcium 9.2 mg/dL (8.6-10.3); Globulin 2.9 g/dL (2.4-3.5); Potassium 3.4 mEq/L (3.5-5.1); Total Protein 6.7 g/dL (6.4-8.9)
[2019-10-02] MEDS ORDERED: Ondansetron 4 MG/2 ML VIAL IVP PRN (12:47)
[2019-10-02] MEDS ORDERED: Naloxone 0.4 MG/ML INJ IVP PRN (12:47)
[2019-10-02] MEDS ORDERED: Dextrose Gel 15 GM/37.5 ML TUBE PO PRN ×2 (12:52)
[2019-10-02] MEDS ORDERED: *HR* Dextrose 50 % in Water (Syg) 50 ML SYRINGE IVP PRN (12:52)
[2019-10-02] MEDS ORDERED: D5% in Water 1,000 ML IVC PRN (12:52)
[2019-10-02] MEDS: Insulin LISPRO 300 UNITS/3 ML VIAL SQ SCH (16:33)
[2019-10-02] MEDS: *HR* Heparin 5,000 UNIT/ML VIAL SQ SCH (18:29)
[2019-10-03] MEDS ORDERED: Piperacillin/Tazobactam 3.375 GM in 0.9 % Sodium Chloride Mini Bag 100 ML IVPB SCH
[2019-10-03] MEDS: Piperacillin/Tazobactam 3.375 GM in 0.9 % Sodium Chloride Mini Bag 100 ML IVPB SCH ×2 (00:07→12:16)
[2019-10-03] MEDS: *HR* OxyCODONE Immed Rel 5 MG TABLET PO PRN ×2 (01:00→21:38)
[2019-10-03] MEDS: *HR* Heparin 5,000 UNIT/ML VIAL SQ SCH ×2 (05:12→17:05)
[2019-10-03 05:52] LABS: Basophils # 0.1 K/mcL (0.0-0.2); Basophils % 0.7 %; Eosinophils # 0.6 K/mcL (0.0-0.6); Eosinophils % 7.7 %; Hematocrit 30.1 % (37.5-50.1); Hemoglobin 10.3 g/dL (12.9-16.9); Immature Granulocytes % 0.4 % (0-4); Lymphocytes # 1.1 K/mcL (0.6-4.6); Lymphocytes % 15.4 %; Mean Corpuscular HGB Conc 34.2 g/dL (31.6-35.5); Mean Corpuscular Hemoglobin 32.4 pg (28.0-33.3); Mean Corpuscular Volume 94.7 fL (83.0-100.0); Mean Platelet Volume 9.4 fL (9.4-12.4); Monocytes # 0.4 K/mcL (0.0-1.3); Monocytes % 5.9 %; Neutrophils # 5.1 K/mcL (1.6-8.9); Platelet Count 249 K/mcL (140-400); Red Blood Count 3.18 M/mcL (4.19-5.50); Red Cell Distribution Width 12.9 % (11.5-14.5); Segmented Neutrophils % 69.9 %; White Blood Count 7.3 K/mcL (4.3-11.1)
[2019-10-03 06:11] LABS: Vancomycin,Random 11 mcg/mL
[2019-10-03 06:12] LABS: Magnesium 1.9 mg/dL (1.6-2.6); Potassium 3.6 mEq/L (3.5-5.1)
[2019-10-03] MEDS ORDERED: Diphenoxylate/Atropine 1 TAB TABLET PO PRN (07:38)
[2019-10-03] MEDS ORDERED: 0.9 % Sodium Chloride 250 ML IVC PRN (07:51)
[2019-10-03] MEDS ORDERED: Vancomycin 1 EACH in 0.9 % Sodium Chloride 250 ML IVPB SCH (08:00)
[2019-10-03] MEDS ORDERED: gemfibroziL 600 MG TABLET PO SCH (08:00)
[2019-10-03] MEDS ORDERED: 0.9 % Sodium Chloride 1,000 ML PRIME SCH (08:00)
[2019-10-03] MEDS ORDERED: BIOTIN 300 MCG PO SCH (09:00)
[2019-10-03] MEDS ORDERED: allopurinoL 100 MG TABLET PO SCH (09:00)
[2019-10-03] MEDS ORDERED: RIBOFLAVIN 25 MG PO SCH (09:00)
[2019-10-03 09:01] LABS: Hepatitis B Surface Antibody < 3.10 mIU/mL
[2019-10-03 09:12] LABS: Hepatitis B Surface Antigen Nonreactive (Nonreactive)
[2019-10-03] MEDS: Insulin LISPRO 300 UNITS/3 ML VIAL SQ SCH ×4 (10:18→21:32)
[2019-10-03] MEDS: Simethicone 80 MG TAB.CHEW PO SCH ×4 (10:27→21:33)
[2019-10-03] MEDS: Pregabalin 50 MG CAPSULE PO SCH ×3 (10:27→21:33)
[2019-10-03 10:46] LABS: C-Reactive Protein 32 mg/L (Less than 10)
[2019-10-03] MEDS ORDERED: Cholestyramine 4 GM POWD.PACK PO SCH (16:30)
[2019-10-03] MEDS: Insulin DETEMIR 100 UNIT/ML X5UNITS SQ SCH (21:33)
[2019-10-03] MEDS: Melatonin 3 MG TABLET PO SCH (21:33)
[2019-10-04] MEDS: Piperacillin/Tazobactam 3.375 GM in 0.9 % Sodium Chloride Mini Bag 100 ML IVPB SCH ×2 (00:10→11:30)
[2019-10-04 02:33] LABS: Basophils # 0.1 K/mcL (0.0-0.2); Basophils % 0.9 %; Eosinophils # 0.5 K/mcL (0.0-0.6); Eosinophils % 7.2 %; Hematocrit 30.3 % (37.5-50.1); Hemoglobin 10.1 g/dL (12.9-16.9); Immature Granulocytes % 0.7 % (0-4); Lymphocytes # 1.4 K/mcL (0.6-4.6); Lymphocytes % 20.9 %; Mean Corpuscular HGB Conc 33.3 g/dL (31.6-35.5); Mean Corpuscular Hemoglobin 31.7 pg (28.0-33.3); Mean Platelet Volume 9.9 fL (9.4-12.4); Monocytes # 0.5 K/mcL (0.0-1.3); Monocytes % 7.4 %; Neutrophils # 4.3 K/mcL (1.6-8.9); Platelet Count 231 K/mcL (140-400); Red Blood Count 3.19 M/mcL (4.19-5.50); Red Cell Distribution Width 12.8 % (11.5-14.5); Segmented Neutrophils % 62.9 %; White Blood Count 6.8 K/mcL (4.3-11.1)
[2019-10-04 02:54] LABS: Magnesium 1.7 mg/dL (1.6-2.6); Phosphorous 1.2 mg/dL (2.7-4.5)
[2019-10-04] MEDS: *HR* Heparin 5,000 UNIT/ML VIAL SQ SCH ×2 (06:04→16:33)
[2019-10-04] MEDS: Insulin LISPRO 300 UNITS/3 ML VIAL SQ SCH ×6 (08:28→20:42)
[2019-10-04] MEDS: Furosemide 40 MG TABLET PO SCH (08:29)
[2019-10-04] MEDS: Simethicone 80 MG TAB.CHEW PO SCH ×4 (08:29→20:50)
[2019-10-04] MEDS: Insulin DETEMIR 100 UNIT/ML X5UNITS SQ SCH ×2 (08:30→20:51)
[2019-10-04] MEDS: *HR* OxyCODONE Immed Rel 5 MG TABLET PO PRN (16:39)
[2019-10-04] MEDS: Melatonin 3 MG TABLET PO SCH (20:50)
[2019-10-04] MEDS: Pregabalin 50 MG CAPSULE PO SCH (20:51)
[2019-10-05] MEDS: Piperacillin/Tazobactam 3.375 GM in 0.9 % Sodium Chloride Mini Bag 100 ML IVPB SCH ×3 (00:33→23:15)
[2019-10-05] MEDS: *HR* OxyCODONE Immed Rel 5 MG TABLET PO PRN ×2 (01:50→09:53)
[2019-10-05] MEDS: *HR* Heparin 5,000 UNIT/ML VIAL SQ SCH ×2 (05:12→16:13)
[2019-10-05 06:11] LABS: Calcium 7.6 mg/dL (8.6-10.3); Magnesium 1.7 mg/dL (1.6-2.6); Phosphorous 3.1 mg/dL (2.7-4.5); Potassium 4.4 mEq/L (3.5-5.1)
[2019-10-05] MEDS: Insulin LISPRO 300 UNITS/3 ML VIAL SQ SCH ×7 (09:26→21:00)
[2019-10-05] MEDS: Simethicone 80 MG TAB.CHEW PO SCH ×4 (09:27→21:06)
[2019-10-05] MEDS: Furosemide 40 MG TABLET PO SCH (09:27)
[2019-10-05] MEDS: Insulin DETEMIR 100 UNIT/ML X5UNITS SQ SCH ×2 (09:27→21:07)
[2019-10-05] MEDS: Pregabalin 50 MG CAPSULE PO SCH (21:06)
[2019-10-05] MEDS: Melatonin 3 MG TABLET PO SCH (21:07)
[2019-10-06 03:46] LABS: Calcium 7.3 mg/dL (8.6-10.3); Magnesium 1.6 mg/dL (1.6-2.6); Phosphorous 2.7 mg/dL (2.7-4.5); Potassium 4.8 mEq/L (3.5-5.1)
[2019-10-06] MEDS: *HR* Heparin 5,000 UNIT/ML VIAL SQ SCH ×2 (05:42→16:42)
[2019-10-06] MEDS ORDERED: *HR* Heparin 10,000 UNIT/10 ML VIAL IV PRN (07:51)
[2019-10-06] MEDS ORDERED: 0.9 % Sodium Chloride 250 ML IVC PRN (07:51)
[2019-10-06] MEDS: Insulin LISPRO 300 UNITS/3 ML VIAL SQ SCH ×7 (08:38→20:22)
[2019-10-06] MEDS: Furosemide 40 MG TABLET PO SCH (08:45)
[2019-10-06] MEDS: Simethicone 80 MG TAB.CHEW PO SCH ×4 (08:45→20:22)
[2019-10-06] MEDS: Insulin DETEMIR 100 UNIT/ML X5UNITS SQ SCH ×2 (08:45→20:22)
[2019-10-06] MEDS: *HR* OxyCODONE Immed Rel 5 MG TABLET PO PRN (08:45)
[2019-10-06] MEDS: Piperacillin/Tazobactam 3.375 GM in 0.9 % Sodium Chloride Mini Bag 100 ML IVPB SCH ×2 (12:46→23:45)
[2019-10-06] MEDS: Pregabalin 50 MG CAPSULE PO SCH (20:21)
[2019-10-06] MEDS: Melatonin 3 MG TABLET PO SCH (20:21)
[2019-10-07 04:42] LABS: Basophils % 0.4 %; Eosinophils # 0.5 K/mcL (0.0-0.6); Eosinophils % 5.5 %; Hematocrit 29.7 % (37.5-50.1); Hemoglobin 9.7 g/dL (12.9-16.9); Immature Granulocytes % 1.3 % (0-4); Lymphocytes # 1.3 K/mcL (0.6-4.6); Lymphocytes % 14.6 %; Mean Corpuscular HGB Conc 32.7 g/dL (31.6-35.5); Mean Corpuscular Hemoglobin 31.2 pg (28.0-33.3); Mean Corpuscular Volume 95.5 fL (83.0-100.0); Mean Platelet Volume 9.8 fL (9.4-12.4); Monocytes # 0.5 K/mcL (0.0-1.3); Monocytes % 5.8 %; Neutrophils # 6.5 K/mcL (1.6-8.9); Platelet Count 225 K/mcL (140-400); Red Blood Count 3.11 M/mcL (4.19-5.50); Red Cell Distribution Width 13.4 % (11.5-14.5); Segmented Neutrophils % 72.4 %
[2019-10-07 05:00] LABS: Calcium 7.3 mg/dL (8.6-10.3); Magnesium 1.6 mg/dL (1.6-2.6); Phosphorous 1.7 mg/dL (2.7-4.5); Potassium 4.1 mEq/L (3.5-5.1)
[2019-10-07] MEDS: *HR* Heparin 5,000 UNIT/ML VIAL SQ SCH ×2 (06:07→16:57)
[2019-10-07] MEDS: Simethicone 80 MG TAB.CHEW PO SCH ×4 (09:37→22:42)
[2019-10-07] MEDS: Insulin LISPRO 300 UNITS/3 ML VIAL SQ SCH ×7 (09:37→20:41)
[2019-10-07] MEDS: Insulin DETEMIR 100 UNIT/ML X5UNITS SQ SCH ×2 (09:39→22:43)
[2019-10-07] MEDS: Furosemide 40 MG TABLET PO SCH (09:40)
[2019-10-07] MEDS: Piperacillin/Tazobactam 3.375 GM in 0.9 % Sodium Chloride Mini Bag 100 ML IVPB SCH ×2 (12:07→22:43)
[2019-10-07] MEDS: *HR* OxyCODONE Immed Rel 5 MG TABLET PO PRN ×2 (16:56→22:42)
[2019-10-07] MEDS: Pregabalin 50 MG CAPSULE PO SCH (22:42)
[2019-10-07] MEDS: Melatonin 3 MG TABLET PO SCH (22:42)
[2019-10-08 02:04] LABS: Hematocrit 29.6 % (37.5-50.1); Hemoglobin 9.7 g/dL (12.9-16.9); Mean Corpuscular HGB Conc 32.8 g/dL (31.6-35.5); Mean Corpuscular Hemoglobin 31.5 pg (28.0-33.3); Mean Corpuscular Volume 96.1 fL (83.0-100.0); Mean Platelet Volume 9.8 fL (9.4-12.4); Platelet Count 216 K/mcL (140-400); Red Blood Count 3.08 M/mcL (4.19-5.50); Red Cell Distribution Width 13.6 % (11.5-14.5); White Blood Count 11.7 K/mcL (4.3-11.1)
[2019-10-08 02:24] LABS: Calcium 7.2 mg/dL (8.6-10.3); Potassium 4.5 mEq/L (3.5-5.1)
[2019-10-08] MEDS: *HR* Heparin 5,000 UNIT/ML VIAL SQ SCH ×2 (05:29→16:33)
[2019-10-08] MEDS: Insulin LISPRO 300 UNITS/3 ML VIAL SQ SCH ×6 (07:37→16:33)
[2019-10-08] MEDS: Furosemide 40 MG TABLET PO SCH (07:39)
[2019-10-08] MEDS: Simethicone 80 MG TAB.CHEW PO SCH ×4 (07:39→22:15)
[2019-10-08] MEDS: Insulin DETEMIR 100 UNIT/ML X5UNITS SQ SCH ×2 (07:39→22:15)
[2019-10-08] MEDS ORDERED: *HR* Heparin 10,000 UNIT/10 ML VIAL IV PRN (07:42)
[2019-10-08] MEDS ORDERED: 0.9 % Sodium Chloride 250 ML IVC PRN (07:42)
[2019-10-08] MEDS ORDERED: 0.9 % Sodium Chloride 1,000 ML PRIME SCH (07:45)
[2019-10-08] MEDS: Piperacillin/Tazobactam 3.375 GM in 0.9 % Sodium Chloride Mini Bag 100 ML IVPB SCH (13:04)
[2019-10-08] MEDS: traZODone 50 MG TABLET PO SCH (22:15)
[2019-10-08] MEDS: Pregabalin 50 MG CAPSULE PO SCH (22:15)
[2019-10-08] MEDS: Melatonin 3 MG TABLET PO SCH (22:15)
[2019-10-08] MEDS: *HR* OxyCODONE Immed Rel 5 MG TABLET PO PRN (22:26)
[2019-10-09] MEDS ORDERED: Cefepime HCl 2,000 MG in Water for inj. (sterile) 20 ML IVP ONE
[2019-10-09 04:59] LABS: Basophils % 0.4 %; Eosinophils # 0.4 K/mcL (0.0-0.6); Eosinophils % 5.2 %; Hematocrit 26.4 % (37.5-50.1); Hemoglobin 8.8 g/dL (12.9-16.9); Lymphocytes # 1.4 K/mcL (0.6-4.6); Lymphocytes % 17.7 %; Mean Corpuscular HGB Conc 33.3 g/dL (31.6-35.5); Mean Corpuscular Hemoglobin 32.1 pg (28.0-33.3); Mean Corpuscular Volume 96.4 fL (83.0-100.0); Monocytes # 0.5 K/mcL (0.0-1.3); Monocytes % 6.5 %; Neutrophils # 5.3 K/mcL (1.6-8.9); Platelet Count 185 K/mcL (140-400); Red Blood Count 2.74 M/mcL (4.19-5.50); Red Cell Distribution Width 13.4 % (11.5-14.5); Segmented Neutrophils % 69.2 %; White Blood Count 7.7 K/mcL (4.3-11.1)
[2019-10-09 05:20] LABS: Calcium 7.7 mg/dL (8.6-10.3); Magnesium 1.6 mg/dL (1.6-2.6)
[2019-10-09] MEDS: *HR* Heparin 5,000 UNIT/ML VIAL SQ SCH ×2 (05:44→16:32)
[2019-10-09] MEDS: Furosemide 40 MG TABLET PO SCH ×2 (07:51→07:53)
[2019-10-09] MEDS: Cholecalciferol (D-3) 1,000 UNIT (25MCG) TABLET PO SCH (07:51)
[2019-10-09] MEDS: Multivit/Ca/Min/Fe/FA 1 TAB TABLET PO SCH (07:51)
[2019-10-09] MEDS: Simethicone 80 MG TAB.CHEW PO SCH ×4 (07:51→20:21)
[2019-10-09] MEDS: Calcium Acetate 667 MG CAPSULE PO SCH ×3 (07:51→16:33)
[2019-10-09] MEDS: Insulin LISPRO 300 UNITS/3 ML VIAL SQ SCH ×6 (07:52→16:33)
[2019-10-09] MEDS: Loratadine 10 MG TABLET PO SCH (07:52)
[2019-10-09] MEDS: Insulin DETEMIR 100 UNIT/ML X5UNITS SQ SCH (07:53)
[2019-10-09] MEDS ORDERED: Cholecalciferol (D-3) 1,000 UNIT (25MCG) TABLET PO SCH (09:00)
[2019-10-09 12:10] LABS: INR 1.2; Prothrombin Time 13.2 Seconds (9.4-12.1)
[2019-10-09] MEDS ORDERED: Insulin DETEMIR 100 UNIT/ML X5UNITS SQ SCH (12:30)
[2019-10-09] MEDS ORDERED: Insulin DETEMIR 100 UNIT/ML X5UNITS SQ ONE (13:00)
[2019-10-09] MEDS: *HR* OxyCODONE Immed Rel 5 MG TABLET PO PRN ×2 (13:54→20:21)
[2019-10-09] MEDS ORDERED: Aminoglycoside Consult 1 EACH MC ONE (15:28)
[2019-10-09] MEDS ORDERED: DAPTOmycin 500 MG in 0.9 % Sodium Chloride 100 ML IVPB SCH (20:00)
[2019-10-09] MEDS: traZODone 50 MG TABLET PO SCH (20:20)
[2019-10-09] MEDS: Lactobacillus 1 EACH CAP.SPRINK PO SCH (20:21)
[2019-10-09] MEDS: Pregabalin 50 MG CAPSULE PO SCH (20:21)
[2019-10-09] MEDS: Melatonin 3 MG TABLET PO SCH (20:21)
[2019-10-10 02:05] LABS: Basophils % 0.4 %; Eosinophils # 0.4 K/mcL (0.0-0.6); Hematocrit 26.5 % (37.5-50.1); Hemoglobin 8.7 g/dL (12.9-16.9); Lymphocytes # 1.1 K/mcL (0.6-4.6); Lymphocytes % 14.1 %; Mean Corpuscular HGB Conc 32.8 g/dL (31.6-35.5); Mean Corpuscular Volume 97.4 fL (83.0-100.0); Mean Platelet Volume 10.1 fL (9.4-12.4); Monocytes # 0.6 K/mcL (0.0-1.3); Monocytes % 7.3 %; Neutrophils # 5.5 K/mcL (1.6-8.9); Platelet Count 171 K/mcL (140-400); Red Blood Count 2.72 M/mcL (4.19-5.50); Red Cell Distribution Width 13.2 % (11.5-14.5); Segmented Neutrophils % 72.2 %; White Blood Count 7.7 K/mcL (4.3-11.1)
[2019-10-10 02:25] LABS: Calcium 7.8 mg/dL (8.6-10.3); Magnesium 1.5 mg/dL (1.6-2.6); Potassium 4.3 mEq/L (3.5-5.1)
[2019-10-10 02:26] LABS: % Iron Saturation 13 % (20-55); Iron 22 mcg/dL (65-175); Phosphorous 2.1 mg/dL (2.7-4.5); Transferrin 125 mg/dL (203-362)
[2019-10-10 02:44] LABS: Ferritin > 1500 ng/mL (20-250)
[2019-10-10 02:50] LABS: Folate 3.9 ng/mL (3.0-16.0)
[2019-10-10] MEDS: *HR* Heparin 5,000 UNIT/ML VIAL SQ SCH ×2 (06:07→17:06)
[2019-10-10] MEDS ORDERED: *HR* Heparin 10,000 UNIT/10 ML VIAL IV PRN (07:12)
[2019-10-10] MEDS ORDERED: 0.9 % Sodium Chloride 250 ML IVC PRN (07:12)
[2019-10-10] MEDS ORDERED: 0.9 % Sodium Chloride 1,000 ML PRIME SCH (07:15)
[2019-10-10] MEDS: Cyanocobalamin (B-12) 1,000 MCG TABLET PO SCH (08:10)
[2019-10-10] MEDS: Multivit/Ca/Min/Fe/FA 1 TAB TABLET PO SCH (08:10)
[2019-10-10] MEDS: Loratadine 10 MG TABLET PO SCH (08:10)
[2019-10-10] MEDS: Lactobacillus 1 EACH CAP.SPRINK PO SCH ×2 (08:10→21:53)
[2019-10-10] MEDS: Cholecalciferol (D-3) 1,000 UNIT (25MCG) TABLET PO SCH (08:10)
[2019-10-10] MEDS: Furosemide 40 MG TABLET PO SCH (08:10)
[2019-10-10] MEDS: Simethicone 80 MG TAB.CHEW PO SCH ×4 (08:10→21:53)
[2019-10-10] MEDS: Calcium Acetate 667 MG CAPSULE PO SCH ×3 (08:11→17:06)
[2019-10-10] MEDS: Insulin DETEMIR 100 UNIT/ML X5UNITS SQ SCH (08:11)
[2019-10-10] MEDS: Insulin LISPRO 300 UNITS/3 ML VIAL SQ SCH ×6 (08:12→16:38)
[2019-10-10] MEDS ORDERED: Heparin 1,000 UNITS/500 mL 500 ML ONE (08:13)
[2019-10-10] MEDS ORDERED: *HR* Midazolam HCl 2 MG/2 ML VIAL IVP ONE (08:29)
[2019-10-10] MEDS ORDERED: *HR* FentaNYL (PF) 100 MCG/2 ML VIAL IVP ONE (08:29)
[2019-10-10] MEDS ORDERED: 0.9 % Sodium Chloride 500 ML ONE (08:55)
[2019-10-10] MEDS ORDERED: Cefepime HCl 2,000 MG in Water for inj. (sterile) 20 ML IVP SCH (16:00)
[2019-10-10] MEDS ORDERED: DAPTOmycin 750 MG in 0.9 % Sodium Chloride 100 ML IVPB SCH (17:00)
[2019-10-10] MEDS: Acetaminophen 325 MG TABLET PO PRN (21:53)
[2019-10-10] MEDS: Melatonin 3 MG TABLET PO SCH (21:53)
[2019-10-10] MEDS: traZODone 50 MG TABLET PO SCH (21:53)
[2019-10-11 04:32] LABS: Basophils % 0.3 %; Eosinophils # 0.4 K/mcL (0.0-0.6); Eosinophils % 5.5 %; Hematocrit 25.3 % (37.5-50.1); Hemoglobin 8.3 g/dL (12.9-16.9); Immature Granulocytes % 0.9 % (0-4); Lymphocytes # 1.1 K/mcL (0.6-4.6); Lymphocytes % 15.6 %; Mean Corpuscular HGB Conc 32.8 g/dL (31.6-35.5); Mean Corpuscular Hemoglobin 31.4 pg (28.0-33.3); Mean Corpuscular Volume 95.8 fL (83.0-100.0); Mean Platelet Volume 9.7 fL (9.4-12.4); Monocytes # 0.5 K/mcL (0.0-1.3); Monocytes % 7.7 %; Neutrophils # 4.9 K/mcL (1.6-8.9); Platelet Count 196 K/mcL (140-400); Red Blood Count 2.64 M/mcL (4.19-5.50); Red Cell Distribution Width 13.3 % (11.5-14.5)
[2019-10-11 04:48] LABS: Magnesium 1.9 mg/dL (1.6-2.6)
[2019-10-11 04:48] LABS: Calcium 8.2 mg/dL (8.6-10.3)
[2019-10-11] MEDS: *HR* Heparin 5,000 UNIT/ML VIAL SQ SCH ×2 (05:25→18:47)
[2019-10-11] MEDS: Insulin LISPRO 300 UNITS/3 ML VIAL SQ SCH ×6 (10:17→18:46)
[2019-10-11] MEDS: Cholecalciferol (D-3) 1,000 UNIT (25MCG) TABLET PO SCH (10:25)
[2019-10-11] MEDS: Multivit/Ca/Min/Fe/FA 1 TAB TABLET PO SCH (10:25)
[2019-10-11] MEDS: Furosemide 40 MG TABLET PO SCH (10:25)
[2019-10-11] MEDS: Loratadine 10 MG TABLET PO SCH (10:26)
[2019-10-11] MEDS: Cyanocobalamin (B-12) 1,000 MCG TABLET PO SCH (10:26)
[2019-10-11] MEDS: Lactobacillus 1 EACH CAP.SPRINK PO SCH ×2 (10:26→20:49)
[2019-10-11] MEDS: Calcium Acetate 667 MG CAPSULE PO SCH ×3 (10:29→18:45)
[2019-10-11] MEDS: Simethicone 80 MG TAB.CHEW PO SCH ×4 (10:29→20:49)
[2019-10-11] MEDS: Insulin DETEMIR 100 UNIT/ML X5UNITS SQ SCH (10:57)
[2019-10-11] MEDS: Acetaminophen 325 MG TABLET PO PRN (12:40)
[2019-10-11] MEDS: traZODone 50 MG TABLET PO SCH (20:49)
[2019-10-11] MEDS: Melatonin 3 MG TABLET PO SCH (20:49)
[2019-10-12 04:12] LABS: Calcium 8.2 mg/dL (8.6-10.3); Magnesium 1.9 mg/dL (1.6-2.6); Phosphorous 3.1 mg/dL (2.7-4.5); Potassium 4.3 mEq/L (3.5-5.1)
[2019-10-12] MEDS: *HR* Heparin 5,000 UNIT/ML VIAL SQ SCH ×2 (06:05→17:11)
[2019-10-12 07:43] LABS: Basophils % 0.4 %; Eosinophils # 0.4 K/mcL (0.0-0.6); Eosinophils % 5.3 %; Hematocrit 25.7 % (37.5-50.1); Hemoglobin 8.2 g/dL (12.9-16.9); Lymphocytes # 1.1 K/mcL (0.6-4.6); Lymphocytes % 13.5 %; Mean Corpuscular HGB Conc 31.9 g/dL (31.6-35.5); Mean Corpuscular Hemoglobin 31.1 pg (28.0-33.3); Mean Corpuscular Volume 97.3 fL (83.0-100.0); Mean Platelet Volume 9.9 fL (9.4-12.4); Monocytes # 0.4 K/mcL (0.0-1.3); Monocytes % 4.9 %; Neutrophils # 5.8 K/mcL (1.6-8.9); Platelet Count 209 K/mcL (140-400); Red Blood Count 2.64 M/mcL (4.19-5.50); Red Cell Distribution Width 13.3 % (11.5-14.5); Segmented Neutrophils % 74.9 %; White Blood Count 7.8 K/mcL (4.3-11.1)
[2019-10-12] MEDS: Cholecalciferol (D-3) 1,000 UNIT (25MCG) TABLET PO SCH (08:27)
[2019-10-12] MEDS: Lactobacillus 1 EACH CAP.SPRINK PO SCH ×2 (08:27→20:01)
[2019-10-12] MEDS: Furosemide 40 MG TABLET PO SCH (08:27)
[2019-10-12] MEDS: Cyanocobalamin (B-12) 1,000 MCG TABLET PO SCH (08:27)
[2019-10-12] MEDS: Multivit/Ca/Min/Fe/FA 1 TAB TABLET PO SCH (08:27)
[2019-10-12] MEDS: Calcium Acetate 667 MG CAPSULE PO SCH ×3 (08:28→17:09)
[2019-10-12] MEDS: Insulin DETEMIR 100 UNIT/ML X5UNITS SQ SCH (08:29)
[2019-10-12] MEDS: Simethicone 80 MG TAB.CHEW PO SCH ×4 (08:29→20:00)
[2019-10-12] MEDS: Insulin LISPRO 300 UNITS/3 ML VIAL SQ SCH ×4 (08:30→17:11)
[2019-10-12] MEDS: Loratadine 10 MG TABLET PO SCH (08:31)
[2019-10-12] MEDS: *HR* OxyCODONE Immed Rel 5 MG TABLET PO PRN ×2 (08:52→18:36)
[2019-10-12] MEDS: Melatonin 3 MG TABLET PO SCH (20:01)
[2019-10-12] MEDS: traZODone 50 MG TABLET PO SCH (20:01)
[2019-10-13 03:33] LABS: Basophils % 0.4 %; Eosinophils # 0.5 K/mcL (0.0-0.6); Eosinophils % 5.5 %; Hematocrit 25.5 % (37.5-50.1); Hemoglobin 8.2 g/dL (12.9-16.9); Immature Granulocytes % 0.9 % (0-4); Lymphocytes # 1.1 K/mcL (0.6-4.6); Lymphocytes % 12.3 %; Mean Corpuscular HGB Conc 32.2 g/dL (31.6-35.5); Mean Corpuscular Hemoglobin 31.4 pg (28.0-33.3); Mean Corpuscular Volume 97.7 fL (83.0-100.0); Mean Platelet Volume 9.8 fL (9.4-12.4); Monocytes # 0.4 K/mcL (0.0-1.3); Monocytes % 4.6 %; Neutrophils # 7.1 K/mcL (1.6-8.9); Platelet Count 227 K/mcL (140-400); Red Blood Count 2.61 M/mcL (4.19-5.50); Red Cell Distribution Width 13.2 % (11.5-14.5); Segmented Neutrophils % 76.3 %; White Blood Count 9.3 K/mcL (4.3-11.1)
[2019-10-13 03:53] LABS: Calcium 8.6 mg/dL (8.6-10.3); Magnesium 1.8 mg/dL (1.6-2.6); Phosphorous 3.3 mg/dL (2.7-4.5)
[2019-10-13] MEDS: *HR* Heparin 5,000 UNIT/ML VIAL SQ SCH (05:59)
[2019-10-13] MEDS ORDERED: 0.9 % Sodium Chloride 250 ML IVC PRN (07:13)
[2019-10-13] MEDS: Insulin LISPRO 300 UNITS/3 ML VIAL SQ SCH ×2 (07:26→13:18)
[2019-10-13] MEDS: Calcium Acetate 667 MG CAPSULE PO SCH ×2 (07:35→13:24)
[2019-10-13] MEDS: Multivit/Ca/Min/Fe/FA 1 TAB TABLET PO SCH (07:35)
[2019-10-13] MEDS: Cyanocobalamin (B-12) 1,000 MCG TABLET PO SCH (07:36)
[2019-10-13] MEDS: Loratadine 10 MG TABLET PO SCH (07:36)
[2019-10-13] MEDS: Cholecalciferol (D-3) 1,000 UNIT (25MCG) TABLET PO SCH (07:36)
[2019-10-13] MEDS: Furosemide 40 MG TABLET PO SCH (07:36)
[2019-10-13] MEDS: Simethicone 80 MG TAB.CHEW PO SCH ×2 (07:36→14:01)
[2019-10-13] MEDS: Lactobacillus 1 EACH CAP.SPRINK PO SCH (07:36)
[2019-10-13] MEDS: Insulin DETEMIR 100 UNIT/ML X5UNITS SQ SCH (07:36)
[2019-10-13 12:10] VITALS: BP 147/65
[2019-10-13] MEDS ORDERED: DAPTOmycin 500 MG in 0.9 % Sodium Chloride 100 ML IVPB SCH (14:00)
== END 2019-10-13 15:29 | DRG 314 ==
LOC: EMEROOARM 10:18 → 2ANU 10:18 → SUATTDRO 10-03 11:10
PROVIDERS: ADMIT Internal Medicine; ATTEND Pharmacist

== ENCOUNTER 2019-10-21 14:11 | Observation (INO) ==
[2019-10-21 14:37] LABS: Basophils # 0.1 K/mcL (0.0-0.2); Basophils % 0.5 %; Eosinophils # 0.4 K/mcL (0.0-0.6); Eosinophils % 3.4 %; Hematocrit 31.4 % (37.5-50.1); Hemoglobin 10.3 g/dL (12.9-16.9); Immature Granulocytes % 0.5 % (0-4); Lymphocytes # 1.5 K/mcL (0.6-4.6); Lymphocytes % 12.8 %; Mean Corpuscular HGB Conc 32.8 g/dL (31.6-35.5); Mean Corpuscular Hemoglobin 31.1 pg (28.0-33.3); Mean Corpuscular Volume 94.9 fL (83.0-100.0); Monocytes # 0.5 K/mcL (0.0-1.3); Monocytes % 4.2 %; Neutrophils # 8.9 K/mcL (1.6-8.9); Platelet Count 350 K/mcL (140-400); Red Blood Count 3.31 M/mcL (4.19-5.50); Segmented Neutrophils % 78.6 %; White Blood Count 11.3 K/mcL (4.3-11.1)
[2019-10-21 15:02] LABS: Alanine Aminotransferase 7 Units/L (7-52); Albumin 3.6 g/dL (3.5-5.7); Albumin/Globulin Ratio 1.3 (1.1-2.2); Alkaline Phosphatase 54 Units/L (34-104); Aspartate Amino Transferase 10 Units/L (13-39); BUN/Creatinine Ratio 8 (6-26); Bilirubin,Direct 0.1 mg/dL (0.0-0.2); Bilirubin,Indirect 0.2 mg/dL (0.0-1.0); Bilirubin,Total 0.3 mg/dL (0.3-1.0); Blood Urea Nitrogen 36 mg/dL (8-23); Calcium 8.9 mg/dL (8.6-10.3); Carbon Dioxide 27 mEq/L (23-29); Chloride 94 mEq/L (98-107); Globulin 2.7 g/dL (2.4-3.5); Glucose 175 mg/dL (70-105); Lipase 31 Units/L (11-82); Magnesium 1.9 mg/dL (1.6-2.6); Osmolality,Calculated 287 (280-300); Phosphorous 3.5 mg/dL (2.7-4.5); Potassium 4.8 mEq/L (3.5-5.1); Sodium 132 mEq/L (136-145); Total Protein 6.3 g/dL (6.4-8.9); Troponin I < 0.03 ng/mL (< 0.04); eGFR For African Americans 15 (> 60); eGFR For Non-African Americans 12 (> 60)
[2019-10-21 15:37] LABS: Bilirubin,Urine Small (Negative); Blood,Urine Trace (Negative); Glucose,Urine (UA) 250 mg/dL (Normal); Ketones,Urine Trace mg/dL (Negative); Leukocyte Esterase,Urine Moderate (Negative); Nitrite,Urine Negative (Negative); PH,Urine 5.5 pH Units (5.0-8.0); Protein,Urine >=300 mg/dL (Neg-Trace); Specific Gravity,Urine 1.027 (1.010-1.025); Urobilinogen,Urine Normal (Normal)
[2019-10-21 15:42] LABS: Bacteria,Urine None Seen per hpf (None-Few); Hyaline Casts,Urine None Seen per lpf (None-Few); RBC,Urine 0-3 per hpf (0-3); Squamous Epithelial Cell,Urine Many per lpf (None-Few); WBC,Urine 50-100 per hpf (0-3)
[2019-10-21 15:43] LABS: Clarity,Urine Slightly Hazy (Clear); Color,Urine Yellow (Yellow)
[2019-10-21 15:54] LABS: Amorphous Sediment,Urine Few per hpf (Few)
[2019-10-21] MEDS ORDERED: Aspirin 81 MG TAB.CHEW PO ONE (16:28)
[2019-10-21] MEDS ORDERED: Ondansetron ODT 4 MG TAB.RAPDIS SL PRN (16:35)
[2019-10-21] MEDS ORDERED: *HR* OxyCODONE Immed Rel 5 MG TABLET PO PRN (16:35)
[2019-10-21] MEDS ORDERED: NON-FORMULARY MEDICATION 1 EACH EACH (Cefepime Hcl/Dextrose, Iso-Osm [Cefepime 2 Gm Inject IV SCH (16:45)
[2019-10-21] MEDS ORDERED: Naloxone 0.4 MG/ML INJ IVP PRN (16:47)
[2019-10-21] MEDS ORDERED: D5% in Water 1,000 ML IVC PRN (16:50)
[2019-10-21] MEDS ORDERED: Dextrose Gel 15 GM/37.5 ML TUBE PO PRN ×2 (16:50)
[2019-10-21] MEDS ORDERED: *HR* Dextrose 50 % in Water (Syg) 50 ML SYRINGE IVP PRN (16:50)
[2019-10-21] MEDS ORDERED: DAPTOmycin 500 MG VIAL IVPB SCH ×2 (17:00)
[2019-10-21] MEDS ORDERED: cefTRIAXone 1,000 MG in 0.9 % Sodium Chloride Mini Bag 100 ML IVPB SCH (18:00)
[2019-10-21] MEDS: Simethicone 80 MG TAB.CHEW PO SCH ×2 (18:42→20:25)
[2019-10-21] MEDS: Calcium Acetate 667 MG CAPSULE PO SCH (18:42)
[2019-10-21] MEDS: *HR* Heparin 5,000 UNIT/ML VIAL SQ SCH (18:43)
[2019-10-21] MEDS: Insulin LISPRO 300 UNITS/3 ML VIAL SQ SCH (18:48)
[2019-10-21] MEDS: Lactobacillus 1 EACH CAP.SPRINK PO SCH (20:25)
[2019-10-21] MEDS ORDERED: Melatonin 3 MG TABLET PO SCH (21:00)
[2019-10-21] MEDS ORDERED: Insulin LISPRO 300 UNITS/3 ML VIAL SQ SCH (21:00)
[2019-10-21] MEDS ORDERED: NON-FORMULARY MEDICATION 1 EACH EACH (Insulin Glargine [Lantus] 8 UNIT) SQ SCH (21:00)
[2019-10-21] MEDS ORDERED: traZODone 50 MG TABLET PO SCH (21:00)
[2019-10-21] MEDS ORDERED: Insulin DETEMIR 100 UNIT/ML X5UNITS SQ SCH (21:00)
[2019-10-22 04:24] LABS: Hematocrit 29.9 % (37.5-50.1); Hemoglobin 9.8 g/dL (12.9-16.9); Mean Corpuscular HGB Conc 32.8 g/dL (31.6-35.5); Mean Corpuscular Hemoglobin 30.7 pg (28.0-33.3); Mean Corpuscular Volume 93.7 fL (83.0-100.0); Mean Platelet Volume 9.2 fL (9.4-12.4); Platelet Count 336 K/mcL (140-400); Red Blood Count 3.19 M/mcL (4.19-5.50); Red Cell Distribution Width 13.2 % (11.5-14.5)
[2019-10-22 04:44] LABS: Phosphorous 4.5 mg/dL (2.7-4.5); Potassium 4.6 mEq/L (3.5-5.1)
[2019-10-22] MEDS: *HR* Heparin 5,000 UNIT/ML VIAL SQ SCH (05:07)
[2019-10-22] MEDS ORDERED: 0.9 % Sodium Chloride 2,000 ML ONE (07:09)
[2019-10-22] MEDS: Calcium Acetate 667 MG CAPSULE PO SCH ×2 (07:19→12:26)
[2019-10-22] MEDS: Insulin LISPRO 300 UNITS/3 ML VIAL SQ SCH ×3 (07:19→12:25)
[2019-10-22] MEDS: Simethicone 80 MG TAB.CHEW PO SCH ×2 (07:20→12:25)
[2019-10-22] MEDS ORDERED: 0.9 % Sodium Chloride 250 ML IVC PRN (07:32)
[2019-10-22] MEDS ORDERED: 0.9 % Sodium Chloride 1,000 ML PRIME SCH (07:45)
[2019-10-22] MEDS: Lactobacillus 1 EACH CAP.SPRINK PO SCH (08:41)
[2019-10-22] MEDS ORDERED: (Colestipol Hcl [Colestid] 2 GM) PO SCH (09:00)
[2019-10-22] MEDS ORDERED: Vitamin B Complex/Vit C/Vit E 1 EACH TABLET PO SCH (09:00)
[2019-10-22] MEDS ORDERED: Aspirin Enteric Coated 81 MG Tablet PO SCH (09:00)
[2019-10-22] MEDS ORDERED: DAPTOmycin 500 MG in 0.9 % Sodium Chloride 100 ML IVPB SCH (09:00)
[2019-10-22] MEDS ORDERED: Cyanocobalamin (B-12) 1,000 MCG TABLET PO SCH (09:00)
[2019-10-22] MEDS ORDERED: Furosemide 40 MG TABLET PO SCH (09:00)
[2019-10-22] MEDS ORDERED: Cefepime HCl 2,000 MG in Water for inj. (sterile) 20 ML IVP SCH (09:00)
[2019-10-22] MEDS ORDERED: Loratadine 10 MG TABLET PO SCH (09:00)
[2019-10-22] MEDS ORDERED: Multivit/Ca/Min/Fe/FA 1 TAB TABLET PO SCH (09:00)
[2019-10-22] MEDS ORDERED: Insulin LISPRO 300 UNITS/3 ML VIAL SQ SCH (12:00)
[2019-10-22 13:27] VITALS: BP 119/69
[2019-10-24] MEDS ORDERED: DAPTOmycin 750 MG in 0.9 % Sodium Chloride 100 ML IVPB SCH (09:00)
[2019-10-27] MEDS ORDERED: Ergocalciferol (VIT D2) 50,000 UNIT (1.25MG) CAP PO SCH (09:00)
== END 2019-10-22 13:39 ==
LOC: 2ANU 14:11 → EMEROOARM 14:11 → 2ANU 17:12
PROVIDERS: ADMIT Internal Medicine; ATTEND Internal Medicine

== ENCOUNTER 2019-10-31 08:37 | Inpatient (IN) ==
[2019-10-31 09:12] LABS: Basophils # 0.1 K/mcL (0.0-0.2); Basophils % 0.6 %; Eosinophils # 1.5 K/mcL (0.0-0.6); Eosinophils % 13.9 %; Hematocrit 31.6 % (37.5-50.1); Hemoglobin 10.2 g/dL (12.9-16.9); Immature Granulocytes % 0.7 % (0-4); Lymphocytes # 0.8 K/mcL (0.6-4.6); Lymphocytes % 7.2 %; Mean Corpuscular HGB Conc 32.3 g/dL (31.6-35.5); Mean Corpuscular Hemoglobin 30.9 pg (28.0-33.3); Mean Corpuscular Volume 95.8 fL (83.0-100.0); Mean Platelet Volume 9.2 fL (9.4-12.4); Monocytes # 0.8 K/mcL (0.0-1.3); Monocytes % 7.5 %; Neutrophils # 7.4 K/mcL (1.6-8.9); Platelet Count 317 K/mcL (140-400); Red Cell Distribution Width 13.4 % (11.5-14.5); Segmented Neutrophils % 70.1 %; White Blood Count 10.6 K/mcL (4.3-11.1)
[2019-10-31 09:16] LABS: INR 1.3; Prothrombin Time 15.3 Seconds (9.4-12.1)
[2019-10-31 09:18] LABS: Activated Partial Thrombo Time 33.2 Seconds (26.0-36.0)
[2019-10-31 09:33] LABS: BUN/Creatinine Ratio 6 (6-26); Blood Urea Nitrogen 17 mg/dL (8-23); Calcium 8.6 mg/dL (8.6-10.3); Carbon Dioxide 26 mEq/L (23-29); Chloride 95 mEq/L (98-107); Glucose 145 mg/dL (70-105); Osmolality,Calculated 282 (280-300); Potassium 3.4 mEq/L (3.5-5.1); Sodium 134 mEq/L (136-145); Troponin I < 0.03 ng/mL (< 0.04); eGFR For African Americans 25 (> 60); eGFR For Non-African Americans 20 (> 60)
[2019-10-31] MEDS ORDERED: Azithromycin 500 MG in D5% in Water 250 ML IVPB ONE (10:11)
[2019-10-31] MEDS ORDERED: Naloxone 0.4 MG/ML INJ IVP PRN (10:20)
[2019-10-31] MEDS ORDERED: D5% in Water 1,000 ML IVC PRN (10:21)
[2019-10-31] MEDS ORDERED: *HR* Dextrose 50 % in Water (Syg) 50 ML SYRINGE IVP PRN (10:21)
[2019-10-31] MEDS ORDERED: Dextrose Gel 15 GM/37.5 ML TUBE PO PRN ×2 (10:21)
[2019-10-31] MEDS ORDERED: Nitroglycerin 0.4 MG TAB.SUBL SL PRN (10:27)
[2019-10-31] MEDS: Simethicone 80 MG TAB.CHEW PO SCH ×3 (13:15→21:34)
[2019-10-31] MEDS: Calcium Acetate 667 MG CAPSULE PO SCH ×2 (13:15→15:17)
[2019-10-31] MEDS: Isosorbide MONOnitrate (24 HR) 30 MG TAB.ER.24H PO SCH (13:15)
[2019-10-31] MEDS: Insulin LISPRO 300 UNITS/3 ML VIAL SQ SCH ×2 (13:16→17:05)
[2019-10-31] MEDS: Cefepime HCl 2,000 MG in Water for inj. (sterile) 20 ML IVP SCH (15:17)
[2019-10-31] MEDS ORDERED: DAPTOmycin 750 MG in 0.9 % Sodium Chloride 100 ML IVPB SCH (16:00)
[2019-10-31] MEDS: *HR* Heparin 5,000 UNIT/ML VIAL SQ SCH (17:03)
[2019-10-31 18:07] LABS: Adenovirus Not Detected (Not Detect); Bordetella Pertussis Not Detected (Not Detect); Chlamydophila pneumoniae Not Detected (Not Detect); Coronavirus 229E Not Detected (Not Detect); Coronavirus HKU1 Not Detected (Not Detect); Coronavirus NL63 Not Detected (Not Detect); Coronavirus OC43 Not Detected (Not Detect); Human Metapneumovirus Not Detected (Not Detect); Human Rhinovirus/Enterovirus Not Detected (Not Detect); Influenza A Subtype 2009 H1 Not Detected (Not Detect); Influenza B Not Detected (Not Detect); Mycoplasma pneumoniae Not Detected (Not Detect); Parainfluenza Virus 1 Not Detected (Not Detect); Parainfluenza Virus 2 Not Detected (Not Detect); Parainfluenza Virus 3 Not Detected (Not Detect); Parainfluenza Virus 4 Not Detected (Not Detect); Respiratory Syncytial Virus Not Detected (Not Detect)
[2019-10-31] MEDS: Melatonin 3 MG TABLET PO SCH (21:32)
[2019-10-31] MEDS: Lactobacillus 1 EACH CAP.SPRINK PO SCH (21:32)
[2019-10-31] MEDS: traZODone 50 MG TABLET PO SCH (21:32)
[2019-10-31] MEDS: Insulin DETEMIR 100 UNIT/ML X5UNITS SQ SCH (21:33)
[2019-11-01 04:47] LABS: Basophils # 0.1 K/mcL (0.0-0.2); Basophils % 0.8 %; Eosinophils # 1.1 K/mcL (0.0-0.6); Eosinophils % 11.5 %; Hematocrit 27.7 % (37.5-50.1); Immature Granulocytes % 0.7 % (0-4); Lymphocytes # 0.9 K/mcL (0.6-4.6); Lymphocytes % 8.8 %; Mean Corpuscular HGB Conc 32.5 g/dL (31.6-35.5); Mean Corpuscular Hemoglobin 31.3 pg (28.0-33.3); Mean Corpuscular Volume 96.2 fL (83.0-100.0); Mean Platelet Volume 9.2 fL (9.4-12.4); Monocytes # 0.7 K/mcL (0.0-1.3); Neutrophils # 7.1 K/mcL (1.6-8.9); Platelet Count 289 K/mcL (140-400); Red Blood Count 2.88 M/mcL (4.19-5.50); Red Cell Distribution Width 13.5 % (11.5-14.5); Segmented Neutrophils % 71.2 %; White Blood Count 9.9 K/mcL (4.3-11.1)
[2019-11-01 05:09] LABS: Calcium 8.8 mg/dL (8.6-10.3); Magnesium 1.9 mg/dL (1.6-2.6); Phosphorous 2.9 mg/dL (2.7-4.5); Potassium 3.8 mEq/L (3.5-5.1)
[2019-11-01] MEDS: *HR* Heparin 5,000 UNIT/ML VIAL SQ SCH ×2 (06:52→16:42)
[2019-11-01] MEDS: Aspirin Enteric Coated 81 MG Tablet PO SCH (07:47)
[2019-11-01] MEDS: Calcium Acetate 667 MG CAPSULE PO SCH ×3 (07:47→16:41)
[2019-11-01] MEDS: Lactobacillus 1 EACH CAP.SPRINK PO SCH ×2 (07:47→21:52)
[2019-11-01] MEDS: Furosemide 40 MG TABLET PO SCH (07:47)
[2019-11-01] MEDS: Isosorbide MONOnitrate (24 HR) 30 MG TAB.ER.24H PO SCH (07:47)
[2019-11-01] MEDS: Cyanocobalamin (B-12) 1,000 MCG TABLET PO SCH (07:47)
[2019-11-01] MEDS: Simethicone 80 MG TAB.CHEW PO SCH ×4 (07:47→21:50)
[2019-11-01] MEDS: Insulin LISPRO 300 UNITS/3 ML VIAL SQ SCH ×3 (08:14→16:42)
[2019-11-01] MEDS: Azithromycin 500 MG in 0.9 % Sodium Chloride 250 ML IVPB SCH (11:09)
[2019-11-01] MEDS: Insulin DETEMIR 100 UNIT/ML X5UNITS SQ SCH ×2 (11:09→21:52)
[2019-11-01] MEDS: traZODone 50 MG TABLET PO SCH (21:50)
[2019-11-01] MEDS: Melatonin 3 MG TABLET PO SCH (21:51)
[2019-11-01] MEDS: Benzonatate 100 MG CAPSULE PO SCH (21:51)
[2019-11-01] MEDS: Nystatin POWDER 30 GM BOTTLE TP SCH (22:59)
[2019-11-02] MEDS: *HR* Heparin 5,000 UNIT/ML VIAL SQ SCH ×2 (05:17→17:12)
[2019-11-02 06:23] LABS: Calcium 8.6 mg/dL (8.6-10.3); Potassium 3.9 mEq/L (3.5-5.1)
[2019-11-02] MEDS: Benzonatate 100 MG CAPSULE PO SCH ×3 (08:32→22:58)
[2019-11-02] MEDS: Azithromycin 500 MG in 0.9 % Sodium Chloride 250 ML IVPB SCH (08:32)
[2019-11-02] MEDS: *HR* Promethazine 25 MG/ML VIAL IVP PRN (08:42)
[2019-11-02] MEDS: Insulin DETEMIR 100 UNIT/ML X5UNITS SQ SCH ×2 (08:43→23:13)
[2019-11-02] MEDS: Simethicone 80 MG TAB.CHEW PO SCH ×4 (09:45→22:57)
[2019-11-02] MEDS: Lactobacillus 1 EACH CAP.SPRINK PO SCH ×2 (09:46→22:58)
[2019-11-02] MEDS: Insulin LISPRO 300 UNITS/3 ML VIAL SQ SCH ×3 (09:46→21:26)
[2019-11-02] MEDS: Nystatin POWDER 30 GM BOTTLE TP SCH ×2 (09:46→22:56)
[2019-11-02] MEDS: Furosemide 40 MG TABLET PO SCH (09:46)
[2019-11-02] MEDS: Isosorbide MONOnitrate (24 HR) 30 MG TAB.ER.24H PO SCH (09:46)
[2019-11-02] MEDS: Cyanocobalamin (B-12) 1,000 MCG TABLET PO SCH (09:46)
[2019-11-02] MEDS: Loratadine 10 MG TABLET PO SCH (09:46)
[2019-11-02] MEDS: Aspirin Enteric Coated 81 MG Tablet PO SCH (09:46)
[2019-11-02] MEDS: Calcium Acetate 667 MG CAPSULE PO SCH ×3 (09:46→17:11)
[2019-11-02] MEDS: Melatonin 3 MG TABLET PO SCH (22:57)
[2019-11-02] MEDS: traZODone 50 MG TABLET PO SCH (22:58)
[2019-11-03] MEDS: *HR* OxyCODONE Immed Rel 5 MG TABLET PO PRN ×2 (03:11→10:41)
[2019-11-03 04:36] LABS: Basophils # 0.1 K/mcL (0.0-0.2); Basophils % 0.7 %; Eosinophils # 2.2 K/mcL (0.0-0.6); Eosinophils % 19.1 %; Hematocrit 27.1 % (37.5-50.1); Hemoglobin 8.7 g/dL (12.9-16.9); Immature Granulocytes % 0.8 % (0-4); Lymphocytes # 0.9 K/mcL (0.6-4.6); Lymphocytes % 7.8 %; Mean Corpuscular HGB Conc 32.1 g/dL (31.6-35.5); Mean Corpuscular Hemoglobin 30.4 pg (28.0-33.3); Mean Corpuscular Volume 94.8 fL (83.0-100.0); Mean Platelet Volume 9.2 fL (9.4-12.4); Monocytes # 0.7 K/mcL (0.0-1.3); Monocytes % 5.9 %; Neutrophils # 7.7 K/mcL (1.6-8.9); Platelet Count 331 K/mcL (140-400); Red Blood Count 2.86 M/mcL (4.19-5.50); Red Cell Distribution Width 13.5 % (11.5-14.5); Segmented Neutrophils % 65.7 %; White Blood Count 11.7 K/mcL (4.3-11.1)
[2019-11-03 04:56] LABS: Platelet Estimate Normal (Normal)
[2019-11-03 04:58] LABS: Calcium 8.8 mg/dL (8.6-10.3)
[2019-11-03] MEDS: *HR* Heparin 5,000 UNIT/ML VIAL SQ SCH (05:45)
[2019-11-03] MEDS ORDERED: 0.9 % Sodium Chloride 250 ML IVC PRN (07:51)
[2019-11-03] MEDS ORDERED: *HR* Heparin 10,000 UNIT/10 ML VIAL IV PRN (07:51)
[2019-11-03] MEDS ORDERED: 0.9 % Sodium Chloride 1,000 ML PRIME SCH (08:00)
[2019-11-03] MEDS: Aspirin Enteric Coated 81 MG Tablet PO SCH (08:14)
[2019-11-03] MEDS: Benzonatate 100 MG CAPSULE PO SCH ×3 (08:14→21:01)
[2019-11-03] MEDS: Cyanocobalamin (B-12) 1,000 MCG TABLET PO SCH (08:14)
[2019-11-03] MEDS: Simethicone 80 MG TAB.CHEW PO SCH ×4 (08:14→21:01)
[2019-11-03] MEDS: Lactobacillus 1 EACH CAP.SPRINK PO SCH ×2 (08:14→21:01)
[2019-11-03] MEDS: Calcium Acetate 667 MG CAPSULE PO SCH ×3 (08:15→15:38)
[2019-11-03] MEDS: Loratadine 10 MG TABLET PO SCH (08:15)
[2019-11-03] MEDS: Isosorbide MONOnitrate (24 HR) 30 MG TAB.ER.24H PO SCH (08:16)
[2019-11-03] MEDS: Furosemide 40 MG TABLET PO SCH (08:17)
[2019-11-03] MEDS: Insulin DETEMIR 100 UNIT/ML X5UNITS SQ SCH (08:19)
[2019-11-03] MEDS: Insulin LISPRO 300 UNITS/3 ML VIAL SQ SCH ×3 (08:19→16:59)
[2019-11-03] MEDS: Nystatin POWDER 30 GM BOTTLE TP SCH ×2 (08:20→21:05)
[2019-11-03 09:25] LABS: Hepatitis B Surface Antibody < 3.10 mIU/mL
[2019-11-03 09:36] LABS: Hepatitis B Surface Antigen Nonreactive (Nonreactive)
[2019-11-03] MEDS: Azithromycin 500 MG in 0.9 % Sodium Chloride 250 ML IVPB SCH (13:19)
[2019-11-03 16:44] LABS: Complement C3 124 mg/dL (87-200)
[2019-11-03] MEDS: DAPTOmycin 500 MG in 0.9 % Sodium Chloride 100 ML IVPB SCH (17:17)
[2019-11-03] MEDS ORDERED: Water for inj. (sterile) 20 ML IV ONE (17:21)
[2019-11-03] MEDS: Cefepime HCl 2,000 MG in Water for inj. (sterile) 20 ML IVP SCH (17:25)
[2019-11-03] MEDS: Melatonin 3 MG TABLET PO SCH (21:00)
[2019-11-03] MEDS: traZODone 50 MG TABLET PO SCH (21:06)
[2019-11-04 01:22] LABS: Basophils # 0.1 K/mcL (0.0-0.2); Basophils % 0.8 %; Eosinophils # 1.9 K/mcL (0.0-0.6); Eosinophils % 16.3 %; Hematocrit 30.1 % (37.5-50.1); Hemoglobin 9.7 g/dL (12.9-16.9); Immature Granulocytes % 0.9 % (0-4); Lymphocytes # 0.8 K/mcL (0.6-4.6); Lymphocytes % 6.5 %; Mean Corpuscular HGB Conc 32.2 g/dL (31.6-35.5); Mean Corpuscular Hemoglobin 30.6 pg (28.0-33.3); Mean Platelet Volume 9.3 fL (9.4-12.4); Monocytes # 0.7 K/mcL (0.0-1.3); Monocytes % 6.1 %; Neutrophils # 8.1 K/mcL (1.6-8.9); Platelet Count 312 K/mcL (140-400); Red Blood Count 3.17 M/mcL (4.19-5.50); Red Cell Distribution Width 13.5 % (11.5-14.5); Segmented Neutrophils % 69.4 %; White Blood Count 11.7 K/mcL (4.3-11.1)
[2019-11-04 01:31] LABS: Potassium 4.2 mEq/L (3.5-5.1)
[2019-11-04] MEDS ORDERED: *HR* Succinylcholine 200 MG/10 ML VIAL IVP ONE (07:00)
[2019-11-04] MEDS ORDERED: Lidocaine -MPF 2% 2 ML VIAL ONE (07:00)
[2019-11-04] MEDS ORDERED: *HR* Propofol 200 MG/20 ML VIAL IVP ONE (07:00)
[2019-11-04] MEDS ORDERED: Ondansetron 4 MG/2 ML VIAL ONE (07:15)
[2019-11-04] MEDS ORDERED: Ipratropium/Albuterol Neb 3 ML ONE (08:13)
[2019-11-04] MEDS ORDERED: *HR* EPINEPHrine 1 MG/10 ML SYRINGE INTRATRACH PRN (08:50)
[2019-11-04] MEDS: Calcium Acetate 667 MG CAPSULE PO SCH ×3 (10:06→16:48)
[2019-11-04] MEDS: Simethicone 80 MG TAB.CHEW PO SCH ×4 (10:06→20:51)
[2019-11-04] MEDS: Azithromycin 500 MG in 0.9 % Sodium Chloride 250 ML IVPB SCH (10:07)
[2019-11-04] MEDS: Benzonatate 100 MG CAPSULE PO SCH ×3 (10:07→20:50)
[2019-11-04] MEDS: Cyanocobalamin (B-12) 1,000 MCG TABLET PO SCH (10:07)
[2019-11-04] MEDS: Vitamin B Complex/Vit C/Vit E 1 EACH TABLET PO SCH (10:07)
[2019-11-04] MEDS: Lactobacillus 1 EACH CAP.SPRINK PO SCH ×2 (10:07→20:49)
[2019-11-04] MEDS: Loratadine 10 MG TABLET PO SCH (10:07)
[2019-11-04] MEDS: Nystatin POWDER 30 GM BOTTLE TP SCH ×2 (10:10→20:51)
[2019-11-04] MEDS: Insulin LISPRO 300 UNITS/3 ML VIAL SQ SCH ×3 (10:14→16:53)
[2019-11-04] MEDS: Furosemide 40 MG TABLET PO SCH (11:18)
[2019-11-04] MEDS: Isosorbide MONOnitrate (24 HR) 30 MG TAB.ER.24H PO SCH (11:18)
[2019-11-04] MEDS: *HR* OxyCODONE Immed Rel 5 MG TABLET PO PRN (11:25)
[2019-11-04 12:27] LABS: Appearance of Body Fluid Cloudy (Clear); Appearance of Body Fluid Slightly Hazy (Clear); Volume of Body Fluid 17 mL; Volume of Body Fluid 19 mL
[2019-11-04] MEDS: *HR* Heparin 5,000 UNIT/ML VIAL SQ SCH (18:08)
[2019-11-04] MEDS: Melatonin 3 MG TABLET PO SCH (20:50)
[2019-11-04] MEDS: traZODone 50 MG TABLET PO SCH (20:50)
[2019-11-05] MEDS: *HR* Promethazine 25 MG/ML VIAL IVP PRN (04:20)
[2019-11-05] MEDS: *HR* Heparin 5,000 UNIT/ML VIAL SQ SCH ×2 (06:13→17:59)
[2019-11-05 06:41] LABS: Hemoglobin 8.5 g/dL (12.9-16.9); Mean Corpuscular HGB Conc 32.7 g/dL (31.6-35.5); Mean Corpuscular Volume 94.9 fL (83.0-100.0); Platelet Count 290 K/mcL (140-400); Red Blood Count 2.74 M/mcL (4.19-5.50); Red Cell Distribution Width 13.8 % (11.5-14.5); White Blood Count 12.6 K/mcL (4.3-11.1)
[2019-11-05 07:01] LABS: Calcium 8.6 mg/dL (8.6-10.3); Potassium 4.4 mEq/L (3.5-5.1)
[2019-11-05] MEDS ORDERED: *HR* Heparin 10,000 UNIT/10 ML VIAL IV PRN (07:35)
[2019-11-05] MEDS ORDERED: 0.9 % Sodium Chloride 250 ML IVC PRN (07:35)
[2019-11-05] MEDS: Calcium Acetate 667 MG CAPSULE PO SCH ×3 (08:08→16:27)
[2019-11-05] MEDS: Simethicone 80 MG TAB.CHEW PO SCH ×4 (08:08→19:55)
[2019-11-05] MEDS: Vitamin B Complex/Vit C/Vit E 1 EACH TABLET PO SCH (08:08)
[2019-11-05] MEDS: Furosemide 40 MG TABLET PO SCH (08:09)
[2019-11-05] MEDS: Benzonatate 100 MG CAPSULE PO SCH (08:09)
[2019-11-05] MEDS: Isosorbide MONOnitrate (24 HR) 30 MG TAB.ER.24H PO SCH (08:09)
[2019-11-05] MEDS: *HR* OxyCODONE Immed Rel 5 MG TABLET PO PRN ×2 (08:09→16:26)
[2019-11-05] MEDS: Lactobacillus 1 EACH CAP.SPRINK PO SCH ×2 (08:09→19:54)
[2019-11-05] MEDS: Cyanocobalamin (B-12) 1,000 MCG TABLET PO SCH (08:09)
[2019-11-05] MEDS: Loratadine 10 MG TABLET PO SCH (08:09)
[2019-11-05] MEDS: Insulin LISPRO 300 UNITS/3 ML VIAL SQ SCH ×3 (08:13→16:32)
[2019-11-05] MEDS: Azithromycin 500 MG in 0.9 % Sodium Chloride 250 ML IVPB SCH (12:17)
[2019-11-05] MEDS ORDERED: GuaiFENesin/Codeine Oral Soln 5 ML UDC PO PRN (13:49)
[2019-11-05] MEDS: Cefepime HCl 2,000 MG in Water for inj. (sterile) 20 ML IVP SCH (16:29)
[2019-11-05] MEDS: DAPTOmycin 500 MG in 0.9 % Sodium Chloride 100 ML IVPB SCH (16:30)
[2019-11-05] MEDS: Nystatin POWDER 30 GM BOTTLE TP SCH ×2 (16:31→19:56)
[2019-11-05] MEDS: traZODone 50 MG TABLET PO SCH (19:54)
[2019-11-05] MEDS: Melatonin 3 MG TABLET PO SCH (19:55)
[2019-11-06 03:46] LABS: Basophils # 0.1 K/mcL (0.0-0.2); Basophils % 0.7 %; Eosinophils # 2.6 K/mcL (0.0-0.6); Eosinophils % 17.6 %; Hematocrit 27.9 % (37.5-50.1); Hemoglobin 8.7 g/dL (12.9-16.9); Immature Granulocytes % 1.3 % (0-4); Lymphocytes # 0.6 K/mcL (0.6-4.6); Lymphocytes % 4.2 %; Mean Corpuscular HGB Conc 31.2 g/dL (31.6-35.5); Mean Corpuscular Hemoglobin 30.3 pg (28.0-33.3); Mean Corpuscular Volume 97.2 fL (83.0-100.0); Monocytes # 0.8 K/mcL (0.0-1.3); Monocytes % 5.2 %; Platelet Count 329 K/mcL (140-400); Red Blood Count 2.87 M/mcL (4.19-5.50); Red Cell Distribution Width 13.9 % (11.5-14.5); White Blood Count 14.7 K/mcL (4.3-11.1)
[2019-11-06 03:52] LABS: Neutrophils # 10.4 K/mcL (1.6-8.9)
[2019-11-06 04:00] LABS: Potassium 4.2 mEq/L (3.5-5.1)
[2019-11-06 04:07] LABS: Platelet Estimate Normal (Normal)
[2019-11-06] MEDS: *HR* Heparin 5,000 UNIT/ML VIAL SQ SCH ×2 (06:07→17:02)
[2019-11-06] MEDS: Vitamin B Complex/Vit C/Vit E 1 EACH TABLET PO SCH (08:35)
[2019-11-06] MEDS: Lactobacillus 1 EACH CAP.SPRINK PO SCH ×2 (08:35→20:34)
[2019-11-06] MEDS: Calcium Acetate 667 MG CAPSULE PO SCH ×3 (08:36→17:02)
[2019-11-06] MEDS: Isosorbide MONOnitrate (24 HR) 30 MG TAB.ER.24H PO SCH (08:36)
[2019-11-06] MEDS: Cyanocobalamin (B-12) 1,000 MCG TABLET PO SCH (08:37)
[2019-11-06] MEDS: Simethicone 80 MG TAB.CHEW PO SCH ×4 (08:37→20:34)
[2019-11-06] MEDS: Loratadine 10 MG TABLET PO SCH (08:37)
[2019-11-06] MEDS: Furosemide 40 MG TABLET PO SCH (08:37)
[2019-11-06] MEDS: Nystatin POWDER 30 GM BOTTLE TP SCH (08:38)
[2019-11-06] MEDS: Insulin LISPRO 300 UNITS/3 ML VIAL SQ SCH ×3 (08:38→17:04)
[2019-11-06] MEDS ORDERED: Azithromycin 250 MG TABLET PO SCH (09:00)
[2019-11-06] MEDS ORDERED: Tigecycline 100 MG in 0.9 % Sodium Chloride 100 ML IVPB ONE (10:01)
[2019-11-06 10:55] LABS: ANA IgG by ELISA NONE DETECTED (None Detected); Serine Protease-3 Antibody 2 AU/mL (0-19)
[2019-11-06] MEDS: traZODone 50 MG TABLET PO SCH (20:34)
[2019-11-06] MEDS: Melatonin 3 MG TABLET PO SCH (20:34)
[2019-11-06] MEDS: Tigecycline 50 MG in 0.9 % Sodium Chloride Mini Bag 100 ML IVPB SCH (23:23)
[2019-11-07] MEDS: *HR* Heparin 5,000 UNIT/ML VIAL SQ SCH ×2 (06:28→17:13)
[2019-11-07 06:44] LABS: Hematocrit 32.4 % (37.5-50.1); Mean Corpuscular HGB Conc 32.1 g/dL (31.6-35.5); Mean Corpuscular Hemoglobin 30.8 pg (28.0-33.3); Mean Corpuscular Volume 95.9 fL (83.0-100.0); Mean Platelet Volume 9.3 fL (9.4-12.4); Platelet Count 397 K/mcL (140-400); Red Blood Count 3.38 M/mcL (4.19-5.50); White Blood Count 17.2 K/mcL (4.3-11.1)
[2019-11-07 06:49] LABS: Hemoglobin 10.4 g/dL (12.9-16.9)
[2019-11-07 07:00] LABS: Calcium 9.7 mg/dL (8.6-10.3)
[2019-11-07] MEDS: Simethicone 80 MG TAB.CHEW PO SCH ×4 (07:47→20:35)
[2019-11-07] MEDS: Insulin LISPRO 300 UNITS/3 ML VIAL SQ SCH ×3 (07:52→17:14)
[2019-11-07] MEDS: Isosorbide MONOnitrate (24 HR) 30 MG TAB.ER.24H PO SCH (08:06)
[2019-11-07] MEDS: Lactobacillus 1 EACH CAP.SPRINK PO SCH ×2 (08:06→20:35)
[2019-11-07] MEDS: Tigecycline 50 MG in 0.9 % Sodium Chloride Mini Bag 100 ML IVPB SCH ×2 (08:07→20:46)
[2019-11-07] MEDS: Furosemide 40 MG TABLET PO SCH (08:12)
[2019-11-07] MEDS: Vitamin B Complex/Vit C/Vit E 1 EACH TABLET PO SCH (08:12)
[2019-11-07] MEDS: Calcium Acetate 667 MG CAPSULE PO SCH ×3 (08:13→17:13)
[2019-11-07] MEDS: Loratadine 10 MG TABLET PO SCH (08:13)
[2019-11-07] MEDS: Nystatin POWDER 30 GM BOTTLE TP SCH ×2 (08:14→20:52)
[2019-11-07] MEDS: Cyanocobalamin (B-12) 1,000 MCG TABLET PO SCH (08:15)
[2019-11-07] MEDS ORDERED: 0.9 % Sodium Chloride 1,000 ML ONE (08:36)
[2019-11-07] MEDS ORDERED: 0.9 % Sodium Chloride 250 ML IVC PRN (08:49)
[2019-11-07] MEDS ORDERED: *HR* Heparin 10,000 UNIT/10 ML VIAL IV PRN (08:49)
[2019-11-07] MEDS ORDERED: 0.9 % Sodium Chloride 1,000 ML PRIME SCH (09:00)
[2019-11-07] MEDS ORDERED: *HR* Alteplase (Cathflo) 2 MG VIAL IVP PRN (09:08)
[2019-11-07 10:34] LABS: Influenza A PCR Body Fluid NOT DETECTED; Influenza B PCR Body Fluid NOT DETECTED; RVP Body Fluid Source BAL LUL; RVP Body Fluid Source BAL RUL
[2019-11-07 11:10] LABS: Basophils # 0.1 K/mcL (0.0-0.2); Basophils % 0.6 %; Eosinophils # 0.8 K/mcL (0.0-0.6); Eosinophils % 5.9 %; Hematocrit 28.1 % (37.5-50.1); Hemoglobin 9.1 g/dL (12.9-16.9); Immature Granulocytes % 1.3 % (0-4); Lymphocytes # 0.6 K/mcL (0.6-4.6); Lymphocytes % 4.1 %; Mean Corpuscular HGB Conc 32.4 g/dL (31.6-35.5); Mean Corpuscular Hemoglobin 30.4 pg (28.0-33.3); Mean Platelet Volume 8.9 fL (9.4-12.4); Monocytes # 0.5 K/mcL (0.0-1.3); Monocytes % 3.5 %; Neutrophils # 11.7 K/mcL (1.6-8.9); Platelet Count 357 K/mcL (140-400); Red Blood Count 2.99 M/mcL (4.19-5.50); Red Cell Distribution Width 13.8 % (11.5-14.5); Segmented Neutrophils % 84.6 %; White Blood Count 13.9 K/mcL (4.3-11.1)
[2019-11-07 11:27] LABS: Albumin 2.6 g/dL (3.5-5.7); Albumin/Globulin Ratio 0.9 (1.1-2.2); Bilirubin,Direct 0.1 mg/dL (0.0-0.2); Bilirubin,Indirect 0.3 mg/dL (0.0-1.0); Bilirubin,Total 0.4 mg/dL (0.3-1.0); Globulin 2.9 g/dL (2.4-3.5); Total Protein 5.5 g/dL (6.4-8.9)
[2019-11-07] MEDS: *HR* OxyCODONE Immed Rel 5 MG TABLET PO PRN (12:24)
[2019-11-07] MEDS: *HR* Acetylcysteine 20% 600 MG/3 ML ORAL SYRINGE PO SCH ×2 (12:26→20:36)
[2019-11-07 13:03] LABS: HSV Source BAL LUL; HSV Source BAL RUL
[2019-11-07] MEDS: *HR* Promethazine 25 MG/ML VIAL IVP PRN (18:15)
[2019-11-07] MEDS: Melatonin 3 MG TABLET PO SCH (20:34)
[2019-11-07] MEDS: traZODone 50 MG TABLET PO SCH (20:35)
[2019-11-08] MEDS: *HR* OxyCODONE Immed Rel 5 MG TABLET PO PRN (05:12)
[2019-11-08] MEDS: *HR* Heparin 5,000 UNIT/ML VIAL SQ SCH ×2 (05:14→17:27)
[2019-11-08 05:19] LABS: Hematocrit 28.6 % (37.5-50.1); Hemoglobin 9.1 g/dL (12.9-16.9); Mean Corpuscular HGB Conc 31.8 g/dL (31.6-35.5); Mean Corpuscular Hemoglobin 30.2 pg (28.0-33.3); Mean Platelet Volume 8.9 fL (9.4-12.4); Platelet Count 356 K/mcL (140-400); Red Blood Count 3.01 M/mcL (4.19-5.50); Red Cell Distribution Width 14.1 % (11.5-14.5); White Blood Count 16.3 K/mcL (4.3-11.1)
[2019-11-08 05:39] LABS: Calcium 8.9 mg/dL (8.6-10.3); Potassium 4.3 mEq/L (3.5-5.1)
[2019-11-08] MEDS: Insulin LISPRO 300 UNITS/3 ML VIAL SQ SCH ×3 (08:25→17:27)
[2019-11-08] MEDS: Tigecycline 50 MG in 0.9 % Sodium Chloride Mini Bag 100 ML IVPB SCH ×2 (08:26→20:47)
[2019-11-08] MEDS: *HR* Acetylcysteine 20% 600 MG/3 ML ORAL SYRINGE PO SCH ×2 (08:28→20:43)
[2019-11-08] MEDS: Loratadine 10 MG TABLET PO SCH (08:29)
[2019-11-08] MEDS: Lactobacillus 1 EACH CAP.SPRINK PO SCH ×2 (08:29→20:41)
[2019-11-08] MEDS: Calcium Acetate 667 MG CAPSULE PO SCH ×3 (08:29→16:17)
[2019-11-08] MEDS: Vitamin B Complex/Vit C/Vit E 1 EACH TABLET PO SCH (08:30)
[2019-11-08] MEDS: Nystatin POWDER 30 GM BOTTLE TP SCH ×3 (08:30→20:47)
[2019-11-08] MEDS: Cyanocobalamin (B-12) 1,000 MCG TABLET PO SCH (08:30)
[2019-11-08] MEDS: Simethicone 80 MG TAB.CHEW PO SCH ×4 (08:30→20:46)
[2019-11-08] MEDS: Isosorbide MONOnitrate (24 HR) 30 MG TAB.ER.24H PO SCH (08:30)
[2019-11-08 09:41] LABS: RSV PCR Body Fluid NOT DETECTED
[2019-11-08] MEDS ORDERED: Ondansetron 4 MG/2 ML VIAL IVP PRN (14:29)
[2019-11-08] MEDS: traZODone 50 MG TABLET PO SCH (20:41)
[2019-11-08] MEDS: Melatonin 3 MG TABLET PO SCH (20:41)
[2019-11-09 06:14] LABS: Basophils # 0.1 K/mcL (0.0-0.2); Basophils % 0.6 %; Eosinophils # 1.9 K/mcL (0.0-0.6); Eosinophils % 11.9 %; Hematocrit 31.7 % (37.5-50.1); Hemoglobin 10.1 g/dL (12.9-16.9); Hemoglobin 9.7 g/dL (12.9-16.9); Immature Granulocytes % 1.1 % (0-4); Lymphocytes # 0.9 K/mcL (0.6-4.6); Lymphocytes % 5.3 %; Mean Corpuscular HGB Conc 31.9 g/dL (31.6-35.5); Mean Corpuscular HGB Conc 32.3 g/dL (31.6-35.5); Mean Corpuscular Hemoglobin 30.1 pg (28.0-33.3); Mean Corpuscular Hemoglobin 30.7 pg (28.0-33.3); Mean Corpuscular Volume 94.3 fL (83.0-100.0); Mean Corpuscular Volume 94.9 fL (83.0-100.0); Monocytes # 0.6 K/mcL (0.0-1.3); Monocytes % 3.6 %; Neutrophils # 12.3 K/mcL (1.6-8.9); Platelet Count 366 K/mcL (140-400); Platelet Count 378 K/mcL (140-400); Red Blood Count 3.16 M/mcL (4.19-5.50); Red Blood Count 3.36 M/mcL (4.19-5.50); Red Cell Distribution Width 14.1 % (11.5-14.5); Red Cell Distribution Width 14.2 % (11.5-14.5); Segmented Neutrophils % 77.5 %; White Blood Count 15.9 K/mcL (4.3-11.1); White Blood Count 16.4 K/mcL (4.3-11.1)
[2019-11-09] MEDS: *HR* Heparin 5,000 UNIT/ML VIAL SQ SCH ×2 (06:31→16:44)
[2019-11-09 06:35] LABS: Calcium 9.1 mg/dL (8.6-10.3); Potassium 4.6 mEq/L (3.5-5.1)
[2019-11-09 06:59] LABS: Ferritin > 1500 ng/mL (20-250); Iron 46 mcg/dL (65-175); Transferrin < 75 mg/dL (203-362)
[2019-11-09 07:09] LABS: Vitamin B12 > 1500 pg/mL (250-1100)
[2019-11-09] MEDS: *HR* OxyCODONE Immed Rel 5 MG TABLET PO PRN (08:12)
[2019-11-09] MEDS: Renal Vitamin 1 CAP CAPSULE PO SCH (08:13)
[2019-11-09] MEDS: Calcium Acetate 667 MG CAPSULE PO SCH ×3 (08:13→16:44)
[2019-11-09] MEDS: Isosorbide MONOnitrate (24 HR) 30 MG TAB.ER.24H PO SCH (08:14)
[2019-11-09] MEDS: Lactobacillus 1 EACH CAP.SPRINK PO SCH ×2 (08:14→20:20)
[2019-11-09] MEDS: Insulin LISPRO 300 UNITS/3 ML VIAL SQ SCH ×3 (08:14→16:26)
[2019-11-09] MEDS: Vitamin B Complex/Vit C/Vit E 1 EACH TABLET PO SCH (08:14)
[2019-11-09] MEDS: Simethicone 80 MG TAB.CHEW PO SCH ×5 (08:14→21:21)
[2019-11-09] MEDS: Cyanocobalamin (B-12) 1,000 MCG TABLET PO SCH (08:14)
[2019-11-09] MEDS: Loratadine 10 MG TABLET PO SCH (08:15)
[2019-11-09] MEDS: *HR* Acetylcysteine 20% 600 MG/3 ML ORAL SYRINGE PO SCH ×2 (08:15→20:21)
[2019-11-09] MEDS: Tigecycline 50 MG in 0.9 % Sodium Chloride Mini Bag 100 ML IVPB SCH ×2 (08:16→20:21)
[2019-11-09] MEDS: Nystatin POWDER 30 GM BOTTLE TP SCH ×2 (08:16→21:21)
[2019-11-09 11:02] LABS: Adenovirus Not Detected (Not Detect); Bordetella Pertussis Not Detected (Not Detect); Chlamydophila pneumoniae Not Detected (Not Detect); Coronavirus 229E Not Detected (Not Detect); Coronavirus HKU1 Not Detected (Not Detect); Coronavirus NL63 Not Detected (Not Detect); Coronavirus OC43 Not Detected (Not Detect); Human Metapneumovirus Not Detected (Not Detect); Human Rhinovirus/Enterovirus Not Detected (Not Detect); Influenza A Subtype 2009 H1 Not Detected (Not Detect); Influenza B Not Detected (Not Detect); Mycoplasma pneumoniae Not Detected (Not Detect); Parainfluenza Virus 1 Not Detected (Not Detect); Parainfluenza Virus 2 Not Detected (Not Detect); Parainfluenza Virus 3 Not Detected (Not Detect); Parainfluenza Virus 4 Not Detected (Not Detect); Respiratory Syncytial Virus Not Detected (Not Detect)
[2019-11-09] MEDS: traZODone 50 MG TABLET PO SCH (20:20)
[2019-11-09] MEDS: Melatonin 3 MG TABLET PO SCH (20:20)
[2019-11-10 04:40] LABS: Basophils # 0.1 K/mcL (0.0-0.2); Basophils % 0.8 %; Eosinophils % 13.5 %; Hematocrit 27.2 % (37.5-50.1); Immature Granulocytes % 1.3 % (0-4); Lymphocytes # 1.3 K/mcL (0.6-4.6); Lymphocytes % 8.6 %; Mean Corpuscular HGB Conc 33.1 g/dL (31.6-35.5); Mean Corpuscular Hemoglobin 30.8 pg (28.0-33.3); Mean Corpuscular Volume 93.2 fL (83.0-100.0); Mean Platelet Volume 9.4 fL (9.4-12.4); Monocytes # 0.6 K/mcL (0.0-1.3); Monocytes % 4.3 %; Neutrophils # 10.4 K/mcL (1.6-8.9); Platelet Count 341 K/mcL (140-400); Red Blood Count 2.92 M/mcL (4.19-5.50); Segmented Neutrophils % 71.5 %; White Blood Count 14.6 K/mcL (4.3-11.1)
[2019-11-10 04:56] LABS: Calcium 8.5 mg/dL (8.6-10.3); Potassium 5.3 mEq/L (3.5-5.1)
[2019-11-10] MEDS: *HR* Heparin 5,000 UNIT/ML VIAL SQ SCH (05:53)
[2019-11-10] MEDS ORDERED: 0.9 % Sodium Chloride 250 ML IVC PRN (07:49)
[2019-11-10] MEDS: Loratadine 10 MG TABLET PO SCH (08:53)
[2019-11-10] MEDS: Isosorbide MONOnitrate (24 HR) 30 MG TAB.ER.24H PO SCH (08:53)
[2019-11-10] MEDS: Simethicone 80 MG TAB.CHEW PO SCH ×3 (08:53→16:50)
[2019-11-10] MEDS: Renal Vitamin 1 CAP CAPSULE PO SCH (08:53)
[2019-11-10] MEDS: Vitamin B Complex/Vit C/Vit E 1 EACH TABLET PO SCH (08:53)
[2019-11-10] MEDS: Calcium Acetate 667 MG CAPSULE PO SCH ×3 (08:53→16:51)
[2019-11-10] MEDS: Cyanocobalamin (B-12) 1,000 MCG TABLET PO SCH (08:53)
[2019-11-10] MEDS: Tigecycline 50 MG in 0.9 % Sodium Chloride Mini Bag 100 ML IVPB SCH (08:54)
[2019-11-10] MEDS: *HR* Acetylcysteine 20% 600 MG/3 ML ORAL SYRINGE PO SCH (08:54)
[2019-11-10] MEDS: Lactobacillus 1 EACH CAP.SPRINK PO SCH (08:54)
[2019-11-10] MEDS: Nystatin POWDER 30 GM BOTTLE TP SCH (08:55)
[2019-11-10] MEDS: Insulin LISPRO 300 UNITS/3 ML VIAL SQ SCH ×3 (08:56→16:51)
[2019-11-10] MEDS ORDERED: predniSONE 20 MG TABLET PO SCH (16:00)
[2019-11-10 16:30] VITALS: BP 125/68
== END 2019-11-10 17:26 | DRG 139 ==
LOC: EMEROOARM 08:37 → 2NENU 08:37 → SUATTDRO 11:17 → 2NENU 11:31 → SUATTDRO 11-01 17:33 → 2ANU 11-02 21:41
PROVIDERS: ADMIT Internal Medicine; ATTEND Family Medicine

== ENCOUNTER 2019-11-16 01:50 | Inpatient (IN) ==
[2019-11-16] MEDS ORDERED: Ondansetron 4 MG/2 ML VIAL IVP ONE (02:03)
[2019-11-16] MEDS ORDERED: Isovue-370 500 ML BOTTLE IVP ONE (02:03)
[2019-11-16 03:08] LABS: Basophils # 0.1 K/mcL (0.0-0.2); Basophils % 0.5 %; Eosinophils # 1.3 K/mcL (0.0-0.6); Eosinophils % 7.7 %; Hematocrit 31.8 % (37.5-50.1); Hemoglobin 10.3 g/dL (12.9-16.9); Immature Granulocytes % 1.1 % (0-4); Lymphocytes # 1.8 K/mcL (0.6-4.6); Lymphocytes % 10.6 %; Mean Corpuscular HGB Conc 32.4 g/dL (31.6-35.5); Mean Corpuscular Hemoglobin 30.4 pg (28.0-33.3); Mean Corpuscular Volume 93.8 fL (83.0-100.0); Mean Platelet Volume 8.9 fL (9.4-12.4); Monocytes # 0.6 K/mcL (0.0-1.3); Monocytes % 3.3 %; Neutrophils # 12.9 K/mcL (1.6-8.9); Platelet Count 360 K/mcL (140-400); Red Blood Count 3.39 M/mcL (4.19-5.50); Red Cell Distribution Width 14.9 % (11.5-14.5); Segmented Neutrophils % 76.8 %; White Blood Count 16.8 K/mcL (4.3-11.1)
[2019-11-16 03:08] LABS: Bilirubin,Urine Negative (Negative); Blood,Urine Negative (Negative); Clarity,Urine Clear (Clear); Color,Urine Yellow (Yellow); Glucose,Urine (UA) 100 mg/dL (Normal); Ketones,Urine Negative (Negative); Leukocyte Esterase,Urine Small (Negative); Nitrite,Urine Negative (Negative); PH,Urine 7.5 pH Units (5.0-8.0); Protein,Urine >=300 mg/dL (Neg-Trace); Specific Gravity,Urine 1.016 (1.010-1.025); Urobilinogen,Urine Normal (Normal)
[2019-11-16 03:16] LABS: Bacteria,Urine None Seen per hpf (None-Few); Hyaline Casts,Urine None Seen per lpf (None-Few)
[2019-11-16 03:29] LABS: Squamous Epithelial Cell,Urine Few per lpf (None-Few)
[2019-11-16 03:30] LABS: Alanine Aminotransferase 12 Units/L (7-52); Albumin 2.6 g/dL (3.5-5.7); Albumin/Globulin Ratio 1.2 (1.1-2.2); Alkaline Phosphatase 69 Units/L (34-104); Aspartate Amino Transferase 12 Units/L (13-39); BUN/Creatinine Ratio 11 (6-26); Bilirubin,Direct 0.1 mg/dL (0.0-0.2); Bilirubin,Indirect 0.3 mg/dL (0.0-1.0); Bilirubin,Total 0.4 mg/dL (0.3-1.0); Blood Urea Nitrogen 57 mg/dL (8-23); Calcium 7.6 mg/dL (8.6-10.3); Carbon Dioxide 23 mEq/L (23-29); Chloride 98 mEq/L (98-107); Globulin 2.1 g/dL (2.4-3.5); Glucose 77 mg/dL (70-105); Lipase 19 Units/L (11-82); Osmolality,Calculated 293 (280-300); Potassium 4.5 mEq/L (3.5-5.1); Sodium 134 mEq/L (136-145); Total Protein 4.7 g/dL (6.4-8.9); Troponin I < 0.03 ng/mL (< 0.04); eGFR For African Americans 14 (> 60); eGFR For Non-African Americans 11 (> 60)
[2019-11-16] MEDS ORDERED: Piperacillin/Tazobactam 3.375 GM in 0.9 % Sodium Chloride Mini Bag 100 ML IVPB ONE (05:07)
[2019-11-16] MEDS ORDERED: Naloxone 0.4 MG/ML INJ IVP PRN (05:50)
[2019-11-16] MEDS ORDERED: 0.9 % Sodium Chloride 1,000 ML IVC SCH (06:00)
[2019-11-16] MEDS ORDERED: Dextrose Gel 15 GM/37.5 ML TUBE PO PRN ×2 (06:09)
[2019-11-16] MEDS ORDERED: D5% in Water 1,000 ML IVC PRN (06:09)
[2019-11-16] MEDS ORDERED: *HR* Dextrose 50 % in Water (Syg) 50 ML SYRINGE IVP PRN (06:09)
[2019-11-16 06:31] LABS: INR 1.5; Prothrombin Time 16.8 Seconds (9.4-12.1)
[2019-11-16 06:49] LABS: Magnesium 2.2 mg/dL (1.6-2.6); Troponin I < 0.03 ng/mL (< 0.04)
[2019-11-16 06:57] LABS: Hepatitis B Surface Antigen Nonreactive (Nonreactive)
[2019-11-16 07:26] LABS: Hepatitis B Core IgM Nonreactive (Nonreactive)
[2019-11-16 07:27] LABS: Hepatitis C Virus Antibody Nonreactive (Nonreactive)
[2019-11-16 07:28] LABS: Hepatitis A Antibody IgM Nonreactive (Nonreactive)
[2019-11-16 07:59] LABS: C-Reactive Protein 19 mg/L (Less than 10); Ferritin > 1500 ng/mL (20-250); Iron 39 mcg/dL (65-175); Transferrin < 75 mg/dL (203-362)
[2019-11-16] MEDS ORDERED: MetroNIDAZOLE 500 MG/100 ML 500 MG/100 ML BAG IVPB SCH (08:00)
[2019-11-16] MEDS: Insulin LISPRO 300 UNITS/3 ML VIAL SQ SCH ×3 (09:21→16:36)
[2019-11-16] MEDS: Tigecycline 50 MG in 0.9 % Sodium Chloride Mini Bag 100 ML IVPB SCH ×2 (09:31→21:10)
[2019-11-16] MEDS: Lactobacillus 1 EACH CAP.SPRINK PO SCH ×2 (09:31→21:10)
[2019-11-16] MEDS: Aspirin Enteric Coated 81 MG Tablet PO SCH (09:32)
[2019-11-16] MEDS: Isosorbide MONOnitrate (24 HR) 30 MG TAB.ER.24H PO SCH (09:32)
[2019-11-16] MEDS: Ondansetron ODT 4 MG TAB.RAPDIS SL PRN (11:34)
[2019-11-16] MEDS ORDERED: Piperacillin/Tazobactam 3.375 GM in 0.9 % Sodium Chloride Mini Bag 100 ML IVPB SCH (15:00)
[2019-11-16] MEDS: Piperacillin/Tazobactam 3.375 GM in 0.9 % Sodium Chloride Mini Bag 100 ML IVPB SCH (16:42)
[2019-11-16] MEDS: Melatonin 3 MG TABLET PO SCH (21:10)
[2019-11-17] MEDS: Insulin DETEMIR 100 UNIT/ML X5UNITS SQ SCH ×2 (00:17→21:02)
[2019-11-17] MEDS: Ondansetron ODT 4 MG TAB.RAPDIS SL PRN ×2 (05:12→13:15)
[2019-11-17] MEDS: *HR* Heparin 5,000 UNIT/ML VIAL SQ SCH ×2 (05:12→17:59)
[2019-11-17] MEDS: Piperacillin/Tazobactam 3.375 GM in 0.9 % Sodium Chloride Mini Bag 100 ML IVPB SCH ×2 (05:12→18:01)
[2019-11-17 05:37] LABS: Basophils # 0.1 K/mcL (0.0-0.2); Basophils % 0.6 %; Eosinophils # 1.7 K/mcL (0.0-0.6); Eosinophils % 9.1 %; Hematocrit 33.3 % (37.5-50.1); Hemoglobin 10.7 g/dL (12.9-16.9); Lymphocytes # 2.1 K/mcL (0.6-4.6); Lymphocytes % 11.4 %; Mean Corpuscular HGB Conc 32.1 g/dL (31.6-35.5); Mean Corpuscular Hemoglobin 30.4 pg (28.0-33.3); Mean Corpuscular Volume 94.6 fL (83.0-100.0); Mean Platelet Volume 8.8 fL (9.4-12.4); Monocytes # 0.8 K/mcL (0.0-1.3); Monocytes % 4.3 %; Neutrophils # 13.4 K/mcL (1.6-8.9); Platelet Count 422 K/mcL (140-400); Red Blood Count 3.52 M/mcL (4.19-5.50); Red Cell Distribution Width 15.5 % (11.5-14.5); Segmented Neutrophils % 73.6 %; White Blood Count 18.2 K/mcL (4.3-11.1)
[2019-11-17 05:57] LABS: Albumin 2.6 g/dL (3.5-5.7); Calcium 7.4 mg/dL (8.6-10.3); Phosphorous 6.9 mg/dL (2.7-4.5); Potassium 4.9 mEq/L (3.5-5.1)
[2019-11-17] MEDS ORDERED: 0.9 % Sodium Chloride 250 ML IVC PRN (07:14)
[2019-11-17] MEDS ORDERED: 0.9 % Sodium Chloride 1,000 ML PRIME SCH (07:15)
[2019-11-17] MEDS: Isosorbide MONOnitrate (24 HR) 30 MG TAB.ER.24H PO SCH (08:07)
[2019-11-17] MEDS: Aspirin Enteric Coated 81 MG Tablet PO SCH (08:07)
[2019-11-17] MEDS: Lactobacillus 1 EACH CAP.SPRINK PO SCH ×2 (08:07→20:53)
[2019-11-17] MEDS: Tigecycline 50 MG in 0.9 % Sodium Chloride Mini Bag 100 ML IVPB SCH (08:08)
[2019-11-17] MEDS: Insulin LISPRO 300 UNITS/3 ML VIAL SQ SCH ×3 (08:08→17:09)
[2019-11-17] MEDS: Melatonin 3 MG TABLET PO SCH (20:52)
[2019-11-18] MEDS: Ondansetron ODT 4 MG TAB.RAPDIS SL PRN (00:12)
[2019-11-18 03:00] LABS: Hematocrit 31.5 % (37.5-50.1); Hemoglobin 10.5 g/dL (12.9-16.9); Mean Corpuscular HGB Conc 33.3 g/dL (31.6-35.5); Mean Corpuscular Hemoglobin 30.7 pg (28.0-33.3); Mean Corpuscular Volume 92.1 fL (83.0-100.0); Mean Platelet Volume 8.5 fL (9.4-12.4); Platelet Count 340 K/mcL (140-400); Red Blood Count 3.42 M/mcL (4.19-5.50); Red Cell Distribution Width 15.8 % (11.5-14.5); White Blood Count 13.3 K/mcL (4.3-11.1)
[2019-11-18 03:27] LABS: Calcium 7.2 mg/dL (8.6-10.3); Potassium 3.8 mEq/L (3.5-5.1)
[2019-11-18] MEDS: *HR* Heparin 5,000 UNIT/ML VIAL SQ SCH ×2 (05:34→18:19)
[2019-11-18] MEDS: Piperacillin/Tazobactam 3.375 GM in 0.9 % Sodium Chloride Mini Bag 100 ML IVPB SCH ×2 (05:34→18:19)
[2019-11-18] MEDS: Insulin LISPRO 300 UNITS/3 ML VIAL SQ SCH ×3 (07:18→16:12)
[2019-11-18] MEDS: Isosorbide MONOnitrate (24 HR) 30 MG TAB.ER.24H PO SCH (08:08)
[2019-11-18] MEDS: Aspirin Enteric Coated 81 MG Tablet PO SCH (08:08)
[2019-11-18] MEDS: Lactobacillus 1 EACH CAP.SPRINK PO SCH ×2 (08:08→20:21)
[2019-11-18] MEDS: Melatonin 3 MG TABLET PO SCH (20:21)
[2019-11-18] MEDS: Insulin DETEMIR 100 UNIT/ML X5UNITS SQ SCH (21:09)
[2019-11-19 01:41] LABS: Hematocrit 30.1 % (37.5-50.1); Hemoglobin 9.7 g/dL (12.9-16.9); Mean Corpuscular HGB Conc 32.2 g/dL (31.6-35.5); Mean Corpuscular Hemoglobin 30.2 pg (28.0-33.3); Mean Corpuscular Volume 93.8 fL (83.0-100.0); Mean Platelet Volume 9.1 fL (9.4-12.4); Platelet Count 328 K/mcL (140-400); Red Blood Count 3.21 M/mcL (4.19-5.50); Red Cell Distribution Width 15.6 % (11.5-14.5); White Blood Count 10.5 K/mcL (4.3-11.1)
[2019-11-19 01:52] LABS: Calcium 6.8 mg/dL (8.6-10.3); Potassium 3.7 mEq/L (3.5-5.1)
[2019-11-19] MEDS: Ondansetron ODT 4 MG TAB.RAPDIS SL PRN ×3 (04:34→22:47)
[2019-11-19] MEDS: *HR* Heparin 5,000 UNIT/ML VIAL SQ SCH ×2 (04:34→16:07)
[2019-11-19] MEDS: Piperacillin/Tazobactam 3.375 GM in 0.9 % Sodium Chloride Mini Bag 100 ML IVPB SCH ×2 (04:34→18:29)
[2019-11-19] MEDS ORDERED: 0.9 % Sodium Chloride 250 ML IVC PRN (07:20)
[2019-11-19] MEDS: Insulin LISPRO 300 UNITS/3 ML VIAL SQ SCH ×3 (07:41→18:29)
[2019-11-19] MEDS: Aspirin Enteric Coated 81 MG Tablet PO SCH (12:05)
[2019-11-19] MEDS: Lactobacillus 1 EACH CAP.SPRINK PO SCH ×2 (12:05→21:26)
[2019-11-19] MEDS: amLODIPine 5 MG TABLET PO SCH (12:05)
[2019-11-19] MEDS: Isosorbide MONOnitrate (24 HR) 30 MG TAB.ER.24H PO SCH (12:05)
[2019-11-19] MEDS: Melatonin 3 MG TABLET PO SCH (21:26)
[2019-11-19] MEDS: Insulin DETEMIR 100 UNIT/ML X5UNITS SQ SCH (21:29)
[2019-11-20 04:29] LABS: Hematocrit 32.8 % (37.5-50.1); Hemoglobin 10.5 g/dL (12.9-16.9); Mean Corpuscular Volume 96.8 fL (83.0-100.0); Mean Platelet Volume 9.1 fL (9.4-12.4); Platelet Count 287 K/mcL (140-400); Red Blood Count 3.39 M/mcL (4.19-5.50); Red Cell Distribution Width 15.9 % (11.5-14.5); White Blood Count 10.5 K/mcL (4.3-11.1)
[2019-11-20 04:49] LABS: Calcium 6.9 mg/dL (8.6-10.3); Potassium 3.5 mEq/L (3.5-5.1)
[2019-11-20] MEDS: *HR* Heparin 5,000 UNIT/ML VIAL SQ SCH (06:23)
[2019-11-20] MEDS: Piperacillin/Tazobactam 3.375 GM in 0.9 % Sodium Chloride Mini Bag 100 ML IVPB SCH (06:29)
[2019-11-20] MEDS: Insulin LISPRO 300 UNITS/3 ML VIAL SQ SCH ×2 (07:27→12:19)
[2019-11-20] MEDS: Lactobacillus 1 EACH CAP.SPRINK PO SCH (07:58)
[2019-11-20] MEDS: Isosorbide MONOnitrate (24 HR) 30 MG TAB.ER.24H PO SCH (07:58)
[2019-11-20] MEDS: Aspirin Enteric Coated 81 MG Tablet PO SCH (07:58)
[2019-11-20] MEDS: amLODIPine 5 MG TABLET PO SCH (07:58)
[2019-11-20 11:24] VITALS: BP 104/69
[2019-11-20] MEDS ORDERED: levoFLOXacin 750 MG TABLET PO SCH (13:45)
[2019-11-20] MEDS: metroNIDAZOLE 500 MG TABLET PO SCH ×2 (15:41)
== END 2019-11-20 15:48 | DRG 720 ==
LOC: EMEROOARM 01:50 → 3ANU 01:50 → 2ANU 07:03 → SUATTDRO 08:32
PROVIDERS: ADMIT Family Medicine; ATTEND Internal Medicine

== ENCOUNTER 2019-12-10 08:09 | Observation (INO) ==
[2019-12-10 09:10] LABS: Basophils # 0.1 K/mcL (0.0-0.2); Basophils % 0.7 %; Eosinophils # 0.4 K/mcL (0.0-0.6); Eosinophils % 3.6 %; Hematocrit 32.6 % (37.5-50.1); Hemoglobin 10.4 g/dL (12.9-16.9); Immature Granulocytes % 0.5 % (0-4); Lymphocytes # 1.5 K/mcL (0.6-4.6); Lymphocytes % 15.5 %; Mean Corpuscular HGB Conc 31.9 g/dL (31.6-35.5); Mean Corpuscular Hemoglobin 30.9 pg (28.0-33.3); Mean Corpuscular Volume 96.7 fL (83.0-100.0); Mean Platelet Volume 9.4 fL (9.4-12.4); Monocytes # 0.6 K/mcL (0.0-1.3); Monocytes % 6.2 %; Neutrophils # 7.2 K/mcL (1.6-8.9); Platelet Count 310 K/mcL (140-400); Red Blood Count 3.37 M/mcL (4.19-5.50); Red Cell Distribution Width 15.1 % (11.5-14.5); Segmented Neutrophils % 73.5 %; White Blood Count 9.7 K/mcL (4.3-11.1)
[2019-12-10 09:32] LABS: Alanine Aminotransferase 6 Units/L (7-52); Albumin 3.1 g/dL (3.5-5.7); Albumin/Globulin Ratio 1.3 (1.1-2.2); Alkaline Phosphatase 53 Units/L (34-104); Aspartate Amino Transferase 11 Units/L (13-39); BUN/Creatinine Ratio 5 (6-26); Bilirubin,Indirect 0.4 mg/dL (0.0-1.0); Bilirubin,Total 0.4 mg/dL (0.3-1.0); Blood Urea Nitrogen 17 mg/dL (8-23); Calcium 8.2 mg/dL (8.6-10.3); Carbon Dioxide 25 mEq/L (23-29); Chloride 102 mEq/L (98-107); Ethanol < 10 mg/dL (Less than 10); Globulin 2.4 g/dL (2.4-3.5); Glucose 59 mg/dL (70-105); Osmolality,Calculated 283 (280-300); Potassium 4.2 mEq/L (3.5-5.1); Sodium 137 mEq/L (136-145); Total Protein 5.5 g/dL (6.4-8.9); eGFR For African Americans 23 (> 60); eGFR For Non-African Americans 19 (> 60)
[2019-12-10] MEDS ORDERED: levoFLOXacin 750 MG/150 ML 750 MG/150 ML BAG IVPB STA (11:55)
[2019-12-10] MEDS ORDERED: Naloxone 0.4 MG/ML INJ IVP PRN (12:40)
[2019-12-10] MEDS ORDERED: Ondansetron 4 MG/2 ML VIAL IVP PRN (12:40)
[2019-12-10] MEDS ORDERED: *HR* Dextrose 50 % in Water (Syg) 50 ML SYRINGE IVP ONE (12:44)
[2019-12-10] MEDS ORDERED: Ondansetron ODT 4 MG TAB.RAPDIS SL PRN (14:12)
[2019-12-10] MEDS ORDERED: traZODone 50 MG TABLET PO PRN (14:12)
[2019-12-10] MEDS: Simethicone 80 MG TAB.CHEW PO SCH ×2 (16:30→21:16)
[2019-12-10] MEDS: Calcium Acetate 667 MG CAPSULE PO SCH (16:31)
[2019-12-10] MEDS: *HR* Heparin 5,000 UNIT/ML VIAL SQ SCH (17:21)
[2019-12-10] MEDS ORDERED: Pregabalin 50 MG CAPSULE PO SCH (21:00)
[2019-12-10] MEDS ORDERED: Melatonin 3 MG TABLET PO SCH (21:00)
[2019-12-10] MEDS: *HR* Acetylcysteine 20% 600 MG/3 ML ORAL SYRINGE PO SCH (21:16)
[2019-12-10] MEDS: Lactobacillus 1 EACH CAP.SPRINK PO SCH (21:16)
[2019-12-11 02:21] LABS: Basophils # 0.1 K/mcL (0.0-0.2); Basophils % 0.8 %; Eosinophils # 0.4 K/mcL (0.0-0.6); Eosinophils % 5.9 %; Hematocrit 29.6 % (37.5-50.1); Hemoglobin 9.5 g/dL (12.9-16.9); Immature Granulocytes % 0.3 % (0-4); Lymphocytes # 1.4 K/mcL (0.6-4.6); Lymphocytes % 21.8 %; Mean Corpuscular HGB Conc 32.1 g/dL (31.6-35.5); Mean Corpuscular Hemoglobin 30.5 pg (28.0-33.3); Mean Corpuscular Volume 95.2 fL (83.0-100.0); Mean Platelet Volume 9.5 fL (9.4-12.4); Monocytes # 0.4 K/mcL (0.0-1.3); Monocytes % 6.2 %; Neutrophils # 4.1 K/mcL (1.6-8.9); Platelet Count 265 K/mcL (140-400); Red Blood Count 3.11 M/mcL (4.19-5.50); Red Cell Distribution Width 15.2 % (11.5-14.5); White Blood Count 6.3 K/mcL (4.3-11.1)
[2019-12-11 02:39] LABS: Potassium 4.9 mEq/L (3.5-5.1)
[2019-12-11] MEDS: *HR* OxyCODONE Immed Rel 5 MG TABLET PO PRN ×2 (03:37→12:33)
[2019-12-11] MEDS: *HR* Heparin 5,000 UNIT/ML VIAL SQ SCH (06:44)
[2019-12-11] MEDS: Calcium Acetate 667 MG CAPSULE PO SCH ×2 (07:43→11:10)
[2019-12-11] MEDS: Lactobacillus 1 EACH CAP.SPRINK PO SCH (07:44)
[2019-12-11] MEDS: Simethicone 80 MG TAB.CHEW PO SCH ×2 (07:44→11:10)
[2019-12-11] MEDS: Isosorbide MONOnitrate (24 HR) 30 MG TAB.ER.24H PO SCH (07:45)
[2019-12-11] MEDS: *HR* Acetylcysteine 20% 600 MG/3 ML ORAL SYRINGE PO SCH (07:46)
[2019-12-11 08:03] LABS: Estimated Average Glucose 111 mg/dl
[2019-12-11] MEDS ORDERED: amLODIPine 5 MG TABLET PO SCH (09:00)
[2019-12-11] MEDS ORDERED: Loratadine 10 MG TABLET PO SCH (09:00)
[2019-12-11] MEDS ORDERED: Cyanocobalamin (B-12) 1,000 MCG TABLET PO SCH (09:00)
[2019-12-11] MEDS ORDERED: RIBOFLAVIN 25 MG PO SCH (09:00)
[2019-12-11] MEDS ORDERED: Aspirin Enteric Coated 81 MG Tablet PO SCH (09:00)
[2019-12-11] MEDS ORDERED: Metoprolol XL (24 HR) Succ 25 MG TAB.ER.24H PO SCH (09:00)
[2019-12-11] MEDS ORDERED: Furosemide 40 MG TABLET PO SCH (09:00)
[2019-12-11] MEDS ORDERED: Hydrocortisone Rectal 2.5% CRM 28 GM TUBE RC PRN (11:01)
[2019-12-11 12:39] LABS: Bilirubin,Urine Negative (Negative); Blood,Urine Negative (Negative); Clarity,Urine Clear (Clear); Color,Urine Yellow (Yellow); Glucose,Urine (UA) 100 mg/dL (Normal); Ketones,Urine Negative (Negative); Leukocyte Esterase,Urine Negative (Negative); Nitrite,Urine Negative (Negative); Protein,Urine >=300 mg/dL (Neg-Trace); Specific Gravity,Urine 1.009 (1.010-1.025); Urobilinogen,Urine Normal (Normal)
[2019-12-11 12:41] LABS: Bacteria,Urine None Seen per hpf (None-Few); Hyaline Casts,Urine None Seen per lpf (None-Few); RBC,Urine 0-3 per hpf (0-3); Squamous Epithelial Cell,Urine Moderate per lpf (None-Few); WBC,Urine 0-3 per hpf (0-3)
[2019-12-11 14:46] VITALS: BP 136/86
== END 2019-12-11 16:08 | disposition home health service (06) ==
LOC: 2ANU 08:09 → EMEROOARM 08:09 → SUATTDRO 12:40 → 2ANU 13:29
PROVIDERS: ADMIT Internal Medicine; ATTEND Internal Medicine

== ENCOUNTER 2020-02-09 06:04 | Observation (INO) ==
[2020-02-09 08:19] LABS: Basophils % 0.5 %; Eosinophils # 0.6 K/mcL (0.0-0.6); Eosinophils % 7.7 %; Hematocrit 32.1 % (37.5-50.1); Hemoglobin 10.3 g/dL (12.9-16.9); Immature Granulocytes % 0.4 % (0-4); Lymphocytes # 1.6 K/mcL (0.6-4.6); Lymphocytes % 19.4 %; Mean Corpuscular HGB Conc 32.1 g/dL (31.6-35.5); Mean Corpuscular Hemoglobin 30.7 pg (28.0-33.3); Mean Corpuscular Volume 95.8 fL (83.0-100.0); Mean Platelet Volume 9.5 fL (9.4-12.4); Monocytes # 0.5 K/mcL (0.0-1.3); Monocytes % 5.6 %; Neutrophils # 5.4 K/mcL (1.6-8.9); Platelet Count 231 K/mcL (140-400); Red Blood Count 3.35 M/mcL (4.19-5.50); Red Cell Distribution Width 13.2 % (11.5-14.5); Segmented Neutrophils % 66.4 %; White Blood Count 8.1 K/mcL (4.3-11.1)
[2020-02-09 08:25] LABS: Prothrombin Time 11.9 Seconds (9.4-12.1)
[2020-02-09 08:33] LABS: Activated Partial Thrombo Time 37.7 Seconds (26.0-36.0)
[2020-02-09 09:01] LABS: Alanine Aminotransferase 5 Units/L (7-52); Albumin 3.7 g/dL (3.5-5.7); Albumin/Globulin Ratio 1.5 (1.1-2.2); Alkaline Phosphatase 42 Units/L (34-104); Aspartate Amino Transferase 10 Units/L (13-39); BUN/Creatinine Ratio 9 (6-26); Bilirubin,Indirect 0.2 mg/dL (0.0-1.0); Bilirubin,Total 0.2 mg/dL (0.3-1.0); Blood Urea Nitrogen 50 mg/dL (8-23); Calcium 9.4 mg/dL (8.6-10.3); Carbon Dioxide 20 mEq/L (23-29); Chloride 104 mEq/L (98-107); Ethanol < 10 mg/dL (Less than 10); Globulin 2.5 g/dL (2.4-3.5); Glucose 171 mg/dL (70-105); Magnesium 2.1 mg/dL (1.6-2.6); Osmolality,Calculated 301 (280-300); Phosphorous 4.7 mg/dL (2.7-4.5); Potassium 4.6 mEq/L (3.5-5.1); Sodium 137 mEq/L (136-145); Total Protein 6.2 g/dL (6.4-8.9); Troponin I < 0.03 ng/mL (< 0.04); eGFR For African Americans 12 (> 60); eGFR For Non-African Americans 10 (> 60)
[2020-02-09] MEDS ORDERED: Naloxone 0.4 MG/ML INJ IVP PRN (09:57)
[2020-02-09] MEDS ORDERED: Acetaminophen 325 MG TABLET PO PRN (09:57)
[2020-02-09] MEDS ORDERED: D5% in Water 1,000 ML IVC PRN (10:00)
[2020-02-09] MEDS ORDERED: *HR* Dextrose 50 % in Water (Vial) 50 ML VIAL IVP PRN (10:00)
[2020-02-09] MEDS ORDERED: Dextrose Gel 15 GM/37.5 ML TUBE PO PRN ×2 (10:00)
[2020-02-09] MEDS ORDERED: Nitroglycerin 0.4 MG TAB.SUBL SL PRN (10:03)
[2020-02-09] MEDS ORDERED: *HR* OxyCODONE Immed Rel 5 MG TABLET PO PRN (10:03)
[2020-02-09] MEDS ORDERED: Lactulose Oral Soln 20 GM/30 ML UDC PO SCH (10:15)
[2020-02-09] MEDS ORDERED: 0.9 % Sodium Chloride 250 ML IVC PRN (10:28)
[2020-02-09] MEDS ORDERED: 0.9 % Sodium Chloride 1,000 ML PRIME SCH (10:30)
[2020-02-09 11:43] LABS: Hepatitis B Surface Antibody < 3.10 mIU/mL
[2020-02-09 11:54] LABS: Hepatitis B Surface Antigen Nonreactive (Nonreactive)
[2020-02-09] MEDS: Insulin LISPRO 300 UNITS/3 ML VIAL SQ SCH (15:15)
[2020-02-09 16:34] LABS: ABG Base Excess 4 mEq/L (-2 to 3); ABG HCO3 28 mEq/L (21-27); ABG Oxygen Saturation 95 % (95-98); ABG PCO2 41 mmHg (35-45); ABG PH 7.45 pH Units (7.32-7.45); ABG PO2 75 mmHg (85-104); ABG TCO2 30 mEq/L (20-26)
[2020-02-09] MEDS: Melatonin 3 MG TABLET PO SCH (21:16)
[2020-02-09] MEDS: Sennosides/Docusate Sodium TABLET PO SCH (21:16)
[2020-02-09] MEDS: traZODone 50 MG TABLET PO SCH (21:16)
[2020-02-09] MEDS: *HR* Acetylcysteine 20% 600 MG/3 ML ORAL SYRINGE PO SCH (21:17)
[2020-02-09] MEDS: Insulin DETEMIR 100 UNIT/ML X5UNITS SQ SCH (21:50)
[2020-02-10] MEDS: polyethylene glycoL 3350 17 GM POWD.PACK PO SCH ×2 (00:38→09:15)
[2020-02-10] MEDS: Insulin LISPRO 300 UNITS/3 ML VIAL SQ SCH ×4 (00:38→18:14)
[2020-02-10 02:21] LABS: Basophils % 0.3 %; Eosinophils # 0.4 K/mcL (0.0-0.6); Eosinophils % 4.6 %; Hematocrit 32.1 % (37.5-50.1); Hemoglobin 10.5 g/dL (12.9-16.9); Immature Granulocytes % 0.3 % (0-4); Lymphocytes # 1.1 K/mcL (0.6-4.6); Lymphocytes % 12.4 %; Mean Corpuscular HGB Conc 32.7 g/dL (31.6-35.5); Mean Corpuscular Hemoglobin 30.9 pg (28.0-33.3); Mean Corpuscular Volume 94.4 fL (83.0-100.0); Mean Platelet Volume 9.7 fL (9.4-12.4); Monocytes # 0.5 K/mcL (0.0-1.3); Monocytes % 5.5 %; Neutrophils # 6.8 K/mcL (1.6-8.9); Platelet Count 208 K/mcL (140-400); Segmented Neutrophils % 76.9 %; White Blood Count 8.9 K/mcL (4.3-11.1)
[2020-02-10 02:25] LABS: Calcium 8.4 mg/dL (8.6-10.3); Magnesium 1.9 mg/dL (1.6-2.6); Phosphorous 2.8 mg/dL (2.7-4.5)
[2020-02-10] MEDS: Metoprolol XL (24 HR) Succ 25 MG TAB.ER.24H PO SCH (09:17)
[2020-02-10] MEDS: *HR* Acetylcysteine 20% 600 MG/3 ML ORAL SYRINGE PO SCH ×2 (09:17→21:09)
[2020-02-10] MEDS: amLODIPine 5 MG TABLET PO SCH (09:18)
[2020-02-10] MEDS: Furosemide 40 MG TABLET PO SCH (09:18)
[2020-02-10] MEDS: Isosorbide MONOnitrate (24 HR) 30 MG TAB.ER.24H PO SCH (09:18)
[2020-02-10] MEDS: Pregabalin 50 MG CAPSULE PO SCH (09:18)
[2020-02-10] MEDS: Sennosides/Docusate Sodium TABLET PO SCH ×2 (09:18→20:23)
[2020-02-10] MEDS: Aspirin Enteric Coated 81 MG Tablet PO SCH (09:18)
[2020-02-10] MEDS: Insulin DETEMIR 100 UNIT/ML X5UNITS SQ SCH ×2 (09:19→21:09)
[2020-02-10] MEDS: Cyanocobalamin (B-12) 1,000 MCG TABLET PO SCH (09:19)
[2020-02-10 14:00] LABS: Amphetamine Screen,Urine Negative ng/mL (Cutoff=1000); Barbiturate Screen,Urine Negative ng/mL (Cutoff=200); Benzodiazepines Screen,Urine Negative ng/mL (Cutoff=200); Cannabinoid Screen,Urine Negative ng/mL (Cutoff = 50); Cocaine Screen,Urine Negative ng/mL (Cutoff= 300); Opiate Screen,Urine Negative ng/mL (Cutoff=300); Phencyclidine Screen,Urine Negative ng/mL (Cutoff=25)
[2020-02-10 14:26] LABS: Bilirubin,Urine Negative (Negative); Blood,Urine Negative (Negative); Clarity,Urine Clear (Clear); Color,Urine Light-Yellow (Yellow); Glucose,Urine (UA) 300 mg/dL (Normal); Hyaline Casts,Urine Few per lpf (None Seen); Ketones,Urine Negative (Negative); Leukocyte Esterase,Urine Negative (Negative); Mucus,Urine Few per lpf (None-Few); Nitrite,Urine Negative (Negative); Protein,Urine >=300 mg/dL (Neg-Trace); RBC,Urine 0-3 per hpf (0-3); Specific Gravity,Urine 1.013 (1.010-1.025); Squamous Epithelial Cell,Urine Few per hpf (None-Few); Urobilinogen,Urine Normal (Normal)
[2020-02-10] MEDS: Melatonin 3 MG TABLET PO SCH (20:22)
[2020-02-10] MEDS: traZODone 50 MG TABLET PO SCH (20:23)
[2020-02-11 02:06] LABS: Hematocrit 27.4 % (37.5-50.1); Hemoglobin 8.9 g/dL (12.9-16.9); Mean Corpuscular HGB Conc 32.5 g/dL (31.6-35.5); Mean Corpuscular Hemoglobin 30.9 pg (28.0-33.3); Mean Corpuscular Volume 95.1 fL (83.0-100.0); Mean Platelet Volume 9.8 fL (9.4-12.4); Platelet Count 185 K/mcL (140-400); Red Blood Count 2.88 M/mcL (4.19-5.50); Red Cell Distribution Width 13.1 % (11.5-14.5); White Blood Count 6.4 K/mcL (4.3-11.1)
[2020-02-11 02:21] LABS: Calcium 7.8 mg/dL (8.6-10.3); Potassium 4.3 mEq/L (3.5-5.1)
[2020-02-11] MEDS ORDERED: 0.9 % Sodium Chloride 250 ML IVC PRN (07:43)
[2020-02-11] MEDS ORDERED: 0.9 % Sodium Chloride 1,000 ML PRIME SCH (07:45)
[2020-02-11] MEDS: Sennosides/Docusate Sodium TABLET PO SCH (08:12)
[2020-02-11] MEDS: Isosorbide MONOnitrate (24 HR) 30 MG TAB.ER.24H PO SCH (08:13)
[2020-02-11] MEDS: Metoprolol XL (24 HR) Succ 25 MG TAB.ER.24H PO SCH (08:13)
[2020-02-11] MEDS: Aspirin Enteric Coated 81 MG Tablet PO SCH (08:13)
[2020-02-11] MEDS: Cyanocobalamin (B-12) 1,000 MCG TABLET PO SCH (08:13)
[2020-02-11] MEDS: Pregabalin 50 MG CAPSULE PO SCH (08:13)
[2020-02-11] MEDS: polyethylene glycoL 3350 17 GM POWD.PACK PO SCH (08:13)
[2020-02-11] MEDS: Furosemide 40 MG TABLET PO SCH (08:14)
[2020-02-11] MEDS: *HR* Acetylcysteine 20% 600 MG/3 ML ORAL SYRINGE PO SCH (08:14)
[2020-02-11] MEDS: Insulin LISPRO 300 UNITS/3 ML VIAL SQ SCH ×2 (08:15→12:36)
[2020-02-11 12:28] VITALS: BP 111/56
[2020-02-11] MEDS: Insulin DETEMIR 100 UNIT/ML X5UNITS SQ SCH (12:35)
[2020-02-11] MEDS: amLODIPine 5 MG TABLET PO SCH (12:35)
== END 2020-02-11 15:57 | disposition hospice, home (50) ==
LOC: 2ANU 06:04 → EMEROOARM 06:04 → SUATTDRO 11:22 → 2ANU 11:31
PROVIDERS: ADMIT Internal Medicine; ATTEND Student in an Organized Health Care Education/Training Program

== ENCOUNTER 2020-07-05 05:38 | Inpatient (IN) ==
[2020-07-05 06:26] LABS: Basophils # 0.1 K/mcL (0.0-0.2); Basophils % 0.7 %; Eosinophils # 0.5 K/mcL (0.0-0.6); Eosinophils % 5.7 %; Hematocrit 42.5 % (37.5-50.1); Hemoglobin 13.9 g/dL (12.9-16.9); Immature Granulocytes % 0.4 % (0-4); Lymphocytes % 25.2 %; Mean Corpuscular HGB Conc 32.7 g/dL (31.6-35.5); Mean Corpuscular Hemoglobin 30.2 pg (28.0-33.3); Mean Corpuscular Volume 92.4 fL (83.0-100.0); Mean Platelet Volume 9.6 fL (9.4-12.4); Monocytes # 0.5 K/mcL (0.0-1.3); Monocytes % 6.1 %; Platelet Count 210 K/mcL (140-400); Red Cell Distribution Width 13.2 % (11.5-14.5); Segmented Neutrophils % 61.9 %; White Blood Count 8.1 K/mcL (4.3-11.1)
[2020-07-05 06:56] LABS: Bilirubin,Urine Negative (Negative); Blood,Urine Small (Negative); Clarity,Urine Clear (Clear); Color,Urine Yellow (Yellow); Glucose,Urine (UA) 500 mg/dL (Normal); Ketones,Urine Negative (Negative); Leukocyte Esterase,Urine Negative (Negative); Nitrite,Urine Negative (Negative); PH,Urine 6.5 pH Units (5.0-8.0); Protein,Urine >=600 mg/dL (Neg-Trace); RBC,Urine 0-3 per hpf (0-3); Specific Gravity,Urine 1.023 (1.010-1.025); Urobilinogen,Urine Normal (Normal); WBC,Urine 0-3 per hpf (0-3)
[2020-07-05 06:59] LABS: Albumin 3.6 g/dL (3.5-5.7); Albumin/Globulin Ratio 1.4 (1.1-2.2); Bilirubin,Total 0.4 mg/dL (0.3-1.0); Calcium 9.3 mg/dL (8.6-10.3); Globulin 2.6 g/dL (2.4-3.5); Phosphorous 1.6 mg/dL (2.7-4.5); Potassium 3.2 mEq/L (3.5-5.1); Total Protein 6.2 g/dL (6.4-8.9); Troponin I 0.03 ng/mL (< 0.04)
[2020-07-05 07:11] LABS: Thyroid Stimulating Hormone 4.857 mcIU/mL (0.340-5.600)
[2020-07-05 07:37] LABS: VBG Ionized Calcium 1.16 mmol/L (1.15-1.35)
[2020-07-05] MEDS ORDERED: Naloxone 0.4 MG/ML INJ IVP PRN (08:06)
[2020-07-05] MEDS ORDERED: Ondansetron 4 MG/2 ML VIAL IVP PRN (08:06)
[2020-07-05] MEDS ORDERED: Dextrose Gel 15 GM/37.5 ML TUBE PO PRN ×2 (08:23)
[2020-07-05] MEDS ORDERED: *HR* Dextrose 50 % in Water (Vial) 50 ML VIAL IVP PRN (08:23)
[2020-07-05] MEDS ORDERED: D5% in Water 1,000 ML IVC PRN (08:23)
[2020-07-05 10:42] LABS: Estimated Average Glucose 120 mg/dl; Hemoglobin A1C 5.8 %
[2020-07-05 10:45] LABS: Hepatitis B Surface Antibody 3.45 mIU/mL
[2020-07-05 10:56] LABS: Hepatitis B Surface Antigen Nonreactive (Nonreactive)
[2020-07-05] MEDS: Metoprolol XL (24 HR) Succ 25 MG TAB.ER.24H PO SCH (11:07)
[2020-07-05] MEDS: Cyanocobalamin (B-12) 1,000 MCG TABLET PO SCH (11:08)
[2020-07-05] MEDS: Aspirin Enteric Coated 81 MG Tablet PO SCH (11:09)
[2020-07-05] MEDS: Divalproex (12 HR) 250 MG TABLET PO SCH ×2 (11:11→21:31)
[2020-07-05] MEDS: Insulin LISPRO 300 UNITS/3 ML VIAL SUBQ SCH ×3 (11:13→16:59)
[2020-07-05] MEDS: Saliva Stimulant 100ml BOTTLE PO SCH (11:13)
[2020-07-05] MEDS: Calcium Acetate 667 MG CAPSULE PO SCH ×3 (11:14→18:55)
[2020-07-05] MEDS ORDERED: *HR* Heparin 10,000 UNIT/10 ML VIAL IV PRN (14:32)
[2020-07-05] MEDS ORDERED: 0.9 % Sodium Chloride 250 ML IVC PRN (14:32)
[2020-07-05] MEDS ORDERED: 0.9 % Sodium Chloride 1,000 ML ONE (14:38)
[2020-07-05] MEDS ORDERED: 0.9 % Sodium Chloride 1,000 ML PRIME SCH (14:45)
[2020-07-05] MEDS ORDERED: Insulin LISPRO 300 UNITS/3 ML VIAL SUBQ SCH (21:00)
[2020-07-05] MEDS ORDERED: Insulin DETEMIR 100 UNIT/ML X5UNITS SUBQ SCH (21:00)
[2020-07-05] MEDS ORDERED: *HR* OxyCODONE Immed Rel 5 MG TABLET PO PRN (21:18)
[2020-07-05] MEDS: Melatonin 3 MG TABLET PO SCH (21:52)
[2020-07-05] MEDS: traZODone 50 MG TABLET PO SCH (21:52)
[2020-07-05] MEDS: Gabapentin 100 MG CAPSULE PO SCH (21:52)
[2020-07-06] MEDS: Divalproex (12 HR) 250 MG TABLET PO SCH ×2 (07:43→20:43)
[2020-07-06] MEDS: Cyanocobalamin (B-12) 1,000 MCG TABLET PO SCH (07:43)
[2020-07-06] MEDS: Insulin LISPRO 300 UNITS/3 ML VIAL SUBQ SCH ×3 (07:43→16:21)
[2020-07-06] MEDS: traZODone 50 MG TABLET PO SCH ×2 (07:44→20:43)
[2020-07-06] MEDS: Aspirin Enteric Coated 81 MG Tablet PO SCH (07:44)
[2020-07-06] MEDS: Gabapentin 100 MG CAPSULE PO SCH (07:44)
[2020-07-06] MEDS: Metoprolol XL (24 HR) Succ 25 MG TAB.ER.24H PO SCH (07:44)
[2020-07-06] MEDS: Calcium Acetate 667 MG CAPSULE PO SCH (07:44)
[2020-07-06 07:54] LABS: Basophils # 0.1 K/mcL (0.0-0.2); Basophils % 0.6 %; Eosinophils # 0.4 K/mcL (0.0-0.6); Eosinophils % 4.5 %; Hematocrit 36.1 % (37.5-50.1); Immature Granulocytes % 0.2 % (0-4); Lymphocytes # 1.6 K/mcL (0.6-4.6); Lymphocytes % 18.4 %; Mean Corpuscular HGB Conc 32.7 g/dL (31.6-35.5); Mean Corpuscular Hemoglobin 30.6 pg (28.0-33.3); Mean Corpuscular Volume 93.5 fL (83.0-100.0); Mean Platelet Volume 9.7 fL (9.4-12.4); Monocytes # 0.6 K/mcL (0.0-1.3); Monocytes % 7.2 %; Platelet Count 189 K/mcL (140-400); Red Blood Count 3.86 M/mcL (4.19-5.50); Red Cell Distribution Width 13.2 % (11.5-14.5); Segmented Neutrophils % 69.1 %; White Blood Count 8.6 K/mcL (4.3-11.1)
[2020-07-06 07:59] LABS: Hemoglobin 11.8 g/dL (12.9-16.9)
[2020-07-06] MEDS ORDERED: Furosemide 40 MG TABLET PO SCH (09:00)
[2020-07-06] MEDS: Loratadine 10 MG TABLET PO SCH (09:43)
[2020-07-06] MEDS: Saliva Stimulant 100ml BOTTLE PO SCH (09:49)
[2020-07-06 10:41] LABS: Calcium 8.9 mg/dL (8.6-10.3); Magnesium 1.8 mg/dL (1.6-2.6); Phosphorous 1.3 mg/dL (2.7-4.5); Potassium 3.7 mEq/L (3.5-5.1)
[2020-07-06 14:27] LABS: Hematocrit 34.1 % (37.5-50.1); Hemoglobin 11.1 g/dL (12.9-16.9)
[2020-07-06 15:57] LABS: % Iron Saturation 19 % (20-55); Iron 32 mcg/dL (65-175); Transferrin 120 mg/dL (203-362)
[2020-07-06 16:18] LABS: Ferritin > 1500 ng/mL (20-250)
[2020-07-06] MEDS: *HR* Heparin 5,000 UNIT/ML VIAL SQ SCH (18:35)
[2020-07-06] MEDS: Melatonin 3 MG TABLET PO SCH (20:43)
[2020-07-06] MEDS: Mirtazapine 15 MG TABLET PO SCH (20:43)
[2020-07-07] MEDS: *HR* Heparin 5,000 UNIT/ML VIAL SQ SCH ×2 (05:11→17:33)
[2020-07-07 06:01] LABS: Hematocrit 34.3 % (37.5-50.1); Hemoglobin 11.1 g/dL (12.9-16.9); Mean Corpuscular HGB Conc 32.4 g/dL (31.6-35.5); Mean Corpuscular Volume 92.7 fL (83.0-100.0); Mean Platelet Volume 10.1 fL (9.4-12.4); Platelet Count 166 K/mcL (140-400)
[2020-07-07 06:24] LABS: Calcium 9.1 mg/dL (8.6-10.3); Magnesium 1.7 mg/dL (1.6-2.6); Phosphorous 2.1 mg/dL (2.7-4.5); Potassium 3.2 mEq/L (3.5-5.1)
[2020-07-07] MEDS ORDERED: 0.9 % Sodium Chloride 250 ML IVC PRN (07:30)
[2020-07-07] MEDS ORDERED: 0.9 % Sodium Chloride 1,000 ML PRIME SCH (07:30)
[2020-07-07] MEDS ORDERED: *HR* Heparin 10,000 UNIT/10 ML VIAL IV PRN (07:30)
[2020-07-07] MEDS ORDERED: Iron Sucrose Complex 400 MG in 0.9 % Sodium Chloride 250 ML IVPB ONE (08:11)
[2020-07-07] MEDS: Insulin LISPRO 300 UNITS/3 ML VIAL SUBQ SCH ×3 (09:56→16:37)
[2020-07-07] MEDS: Divalproex (12 HR) 250 MG TABLET PO SCH ×2 (10:01→19:53)
[2020-07-07] MEDS: Loratadine 10 MG TABLET PO SCH (10:01)
[2020-07-07] MEDS: Aspirin 81 MG TAB.CHEW PO SCH (10:01)
[2020-07-07] MEDS: traZODone 50 MG TABLET PO SCH (19:53)
[2020-07-07] MEDS: Mirtazapine 15 MG TABLET PO SCH (19:54)
[2020-07-07] MEDS: Melatonin 3 MG TABLET PO SCH (19:54)
[2020-07-08 01:39] LABS: Hematocrit 33.2 % (37.5-50.1); Hemoglobin 10.8 g/dL (12.9-16.9); Mean Corpuscular HGB Conc 32.5 g/dL (31.6-35.5); Mean Corpuscular Hemoglobin 30.2 pg (28.0-33.3); Mean Corpuscular Volume 92.7 fL (83.0-100.0); Mean Platelet Volume 9.8 fL (9.4-12.4); Platelet Count 199 K/mcL (140-400); Red Blood Count 3.58 M/mcL (4.19-5.50); Red Cell Distribution Width 13.1 % (11.5-14.5); White Blood Count 11.8 K/mcL (4.3-11.1)
[2020-07-08 01:55] LABS: Calcium 8.2 mg/dL (8.6-10.3); Potassium 3.8 mEq/L (3.5-5.1)
[2020-07-08 01:57] LABS: Magnesium 1.7 mg/dL (1.6-2.6); Phosphorous 2.2 mg/dL (2.7-4.5)
[2020-07-08] MEDS: *HR* Heparin 5,000 UNIT/ML VIAL SQ SCH ×2 (05:13→16:54)
[2020-07-08] MEDS: Insulin LISPRO 300 UNITS/3 ML VIAL SUBQ SCH ×3 (07:56→16:53)
[2020-07-08] MEDS: Aspirin 81 MG TAB.CHEW PO SCH (07:57)
[2020-07-08] MEDS: Renal Vitamin 1 CAP CAPSULE PO SCH (07:57)
[2020-07-08] MEDS: Divalproex (12 HR) 250 MG TABLET PO SCH ×2 (07:58→21:29)
[2020-07-08] MEDS: Loratadine 10 MG TABLET PO SCH (07:58)
[2020-07-08] MEDS: Melatonin 3 MG TABLET PO SCH (21:29)
[2020-07-08] MEDS: Mirtazapine 15 MG TABLET PO SCH (21:29)
[2020-07-08] MEDS: traZODone 50 MG TABLET PO SCH (21:29)
[2020-07-09 04:46] LABS: Hematocrit 32.2 % (37.5-50.1); Hemoglobin 10.5 g/dL (12.9-16.9); Mean Corpuscular HGB Conc 32.6 g/dL (31.6-35.5); Mean Corpuscular Hemoglobin 30.5 pg (28.0-33.3); Mean Corpuscular Volume 93.6 fL (83.0-100.0); Mean Platelet Volume 9.5 fL (9.4-12.4); Platelet Count 203 K/mcL (140-400); Red Blood Count 3.44 M/mcL (4.19-5.50); Red Cell Distribution Width 13.1 % (11.5-14.5); White Blood Count 9.5 K/mcL (4.3-11.1)
[2020-07-09 05:00] LABS: Calcium 8.3 mg/dL (8.6-10.3); Magnesium 1.7 mg/dL (1.6-2.6); Phosphorous 2.3 mg/dL (2.7-4.5); Potassium 3.8 mEq/L (3.5-5.1)
[2020-07-09] MEDS: *HR* Heparin 5,000 UNIT/ML VIAL SQ SCH (05:17)
[2020-07-09 07:00] VITALS: BP 171/75
[2020-07-09] MEDS ORDERED: Magnesium Sulfate 1 GM/102 ML PIGGYBACK IVPB ONE (07:35)
[2020-07-09] MEDS: Divalproex (12 HR) 250 MG TABLET PO SCH (08:06)
[2020-07-09] MEDS: Renal Vitamin 1 CAP CAPSULE PO SCH (08:07)
[2020-07-09] MEDS: Aspirin 81 MG TAB.CHEW PO SCH (08:07)
[2020-07-09] MEDS: Loratadine 10 MG TABLET PO SCH (08:07)
[2020-07-09] MEDS: Insulin LISPRO 300 UNITS/3 ML VIAL SUBQ SCH (08:08)
[2020-07-09] MEDS ORDERED: Metoprolol XL (24 HR) Succ 25 MG TAB.ER.24H PO SCH (09:00)
== END 2020-07-09 08:55 | disposition hospice, home (50) | DRG 52 ==
LOC: EMEROOARM 05:38 → 2ANU 05:38 → SUATTDRO 08:45 → 2ANU 09:30
PROVIDERS: ADMIT Student in an Organized Health Care Education/Training Program; ATTEND Internal Medicine

== ENCOUNTER 2020-07-21 06:16 | Observation (INO) ==
[2020-07-21] MEDS ORDERED: Azithromycin 500 MG in 0.9 % Sodium Chloride 250 ML IVPB ONE (06:26)
[2020-07-21] MEDS ORDERED: Piperacillin/Tazobactam 3.375 GM in 0.9 % Sodium Chloride Mini Bag 100 ML IVPB ONE (06:26)
[2020-07-21] MEDS ORDERED: 0.9 % Sodium Chloride 500 ML IVC ONE ×2 (06:26)
[2020-07-21] MEDS ORDERED: Piperacillin/Tazobactam 3.375 GM in Water for inj. (sterile) 20 ML IVP ONE (06:50)
[2020-07-21 06:52] LABS: Basophils % 0.2 %
[2020-07-21 06:54] LABS: Basophils # 0.1 K/mcL (0.0-0.2); Hematocrit 37.6 % (37.5-50.1); Hemoglobin 12.2 g/dL (12.9-16.9); Lymphocytes # 0.8 K/mcL (0.6-4.6); Lymphocytes % 3.1 %; Mean Corpuscular HGB Conc 32.4 g/dL (31.6-35.5); Mean Corpuscular Hemoglobin 31.2 pg (28.0-33.3); Mean Corpuscular Volume 96.2 fL (83.0-100.0); Mean Platelet Volume 8.9 fL (9.4-12.4); Monocytes # 1.2 K/mcL (0.0-1.3); Monocytes % 4.6 %; Neutrophils # 23.8 K/mcL (1.6-8.9); Platelet Count 323 K/mcL (140-400); Red Blood Count 3.91 M/mcL (4.19-5.50); Red Cell Distribution Width 14.4 % (11.5-14.5); Segmented Neutrophils % 91.1 %; White Blood Count 26.1 K/mcL (4.3-11.1)
[2020-07-21 06:58] LABS: INR 1.3; Prothrombin Time 15.3 Seconds (9.4-12.1)
[2020-07-21 07:01] LABS: Activated Partial Thrombo Time 31.7 Seconds (26.0-36.0)
[2020-07-21 07:03] LABS: VBG HCO3 29 mEq/L (21-27); VBG PCO2 49 mmHg (41-51); VBG PH 7.38 pH Units (7.32-7.42); VBG PO2 45 mmHg (25-50)
[2020-07-21 07:20] LABS: Bilirubin,Direct 0.2 mg/dL (0.0-0.2); Bilirubin,Indirect 0.3 mg/dL (0.0-1.0); Bilirubin,Total 0.5 mg/dL (0.3-1.0); Calcium 8.2 mg/dL (8.6-10.3); Magnesium 1.8 mg/dL (1.6-2.6); Phosphorous 1.6 mg/dL (2.7-4.5); Potassium 3.6 mEq/L (3.5-5.1); Troponin I 0.04 ng/mL (< 0.04)
[2020-07-21 08:19] LABS: Bilirubin,Urine Negative (Negative); Blood,Urine Moderate (Negative); Clarity,Urine Ex.Turbid (Clear); Color,Urine Dark-Yellow (Yellow); Glucose,Urine (UA) Normal (Normal); Ketones,Urine Trace mg/dL (Negative); Leukocyte Esterase,Urine Large (Negative); Nitrite,Urine Negative (Negative); PH,Urine 7.5 pH Units (5.0-8.0); Protein,Urine 200 mg/dL (Neg-Trace); Specific Gravity,Urine 1.018 (1.010-1.025); Urobilinogen,Urine Normal (Normal)
[2020-07-21 08:21] LABS: Squamous Epithelial Cell,Urine Few per hpf (None-Few); WBC,Urine TNTC per hpf (0-3)
[2020-07-21 08:22] LABS: Bacteria,Urine Many per hpf (None-Few)
[2020-07-21] MEDS ORDERED: Naloxone 0.4 MG/ML INJ IVP PRN (09:46)
[2020-07-21] MEDS ORDERED: Acetaminophen 325 MG TABLET PO PRN ×2 (09:46→09:51)
[2020-07-21] MEDS ORDERED: Ondansetron 4 MG/2 ML VIAL IVP PRN (09:46)
[2020-07-21] MEDS ORDERED: MOM Conc 10 ML UD.LIQ PO PRN (09:46)
[2020-07-21] MEDS ORDERED: Mag Hydrox/Al Hydrox/Simeth 30 ML UDC PO PRN (09:46)
[2020-07-21] MEDS ORDERED: Perflutren Lipid Microsphere 1.3 ML in 0.9 % Sodium Chloride 8.7 ML IVP PRN (10:09)
[2020-07-21] MEDS: Metoprolol XL (24 HR) Succ 25 MG TAB.ER.24H PO SCH (10:37)
[2020-07-21] MEDS ORDERED: 0.9 % Sodium Chloride 1,000 ML ONE ×2 (10:42→14:08)
[2020-07-21] MEDS ORDERED: 0.9 % Sodium Chloride 250 ML IVC PRN (10:55)
[2020-07-21 13:35] LABS: Hepatitis B Surface Antibody < 3.10 mIU/mL
[2020-07-21 13:44] LABS: Hepatitis B Surface Antigen Nonreactive (Nonreactive)
[2020-07-21] MEDS: cefTRIAXone 2,000 MG in Water for inj. (sterile) 20 ML IVP SCH (14:39)
[2020-07-21] MEDS: Gabapentin 100 MG CAPSULE PO SCH ×2 (14:42→21:20)
[2020-07-21] MEDS ORDERED: D5% in Water 1,000 ML IVC PRN (14:55)
[2020-07-21] MEDS ORDERED: *HR* Dextrose 50 % in Water (Vial) 50 ML VIAL IVP PRN (14:55)
[2020-07-21] MEDS ORDERED: Dextrose Gel 15 GM/37.5 ML TUBE PO PRN ×2 (14:55)
[2020-07-21] MEDS: Insulin LISPRO 300 UNITS/3 ML VIAL SUBQ SCH ×2 (16:30→21:21)
[2020-07-21] MEDS: *HR* Heparin 5,000 UNIT/ML VIAL SQ SCH (18:55)
[2020-07-21] MEDS: *HR* OxyCODONE Immed Rel 5 MG TABLET PO PRN (21:19)
[2020-07-21] MEDS: Mirtazapine 15 MG TABLET PO SCH (21:20)
[2020-07-21] MEDS: Melatonin 3 MG TABLET PO SCH (21:20)
[2020-07-21] MEDS: Divalproex (12 HR) 250 MG TABLET PO SCH (21:20)
[2020-07-21] MEDS: traZODone 50 MG TABLET PO SCH (21:20)
[2020-07-22 05:08] LABS: Hematocrit 28.3 % (37.5-50.1); Mean Corpuscular HGB Conc 32.2 g/dL (31.6-35.5); Mean Corpuscular Hemoglobin 30.6 pg (28.0-33.3); Mean Corpuscular Volume 95.3 fL (83.0-100.0); Mean Platelet Volume 9.2 fL (9.4-12.4); Platelet Count 217 K/mcL (140-400); Red Blood Count 2.97 M/mcL (4.19-5.50); Red Cell Distribution Width 14.5 % (11.5-14.5); White Blood Count 15.3 K/mcL (4.3-11.1)
[2020-07-22 05:14] LABS: Hemoglobin 9.1 g/dL (12.9-16.9)
[2020-07-22 05:31] LABS: Calcium 7.2 mg/dL (8.6-10.3); Magnesium 1.6 mg/dL (1.6-2.6); Phosphorous 1.4 mg/dL (2.7-4.5); Potassium 3.7 mEq/L (3.5-5.1); Troponin I 0.03 ng/mL (< 0.04)
[2020-07-22] MEDS: *HR* Heparin 5,000 UNIT/ML VIAL SQ SCH ×2 (06:04→17:14)
[2020-07-22] MEDS: *HR* OxyCODONE Immed Rel 5 MG TABLET PO PRN (06:05)
[2020-07-22] MEDS: Aspirin 81 MG TAB.CHEW PO SCH (08:44)
[2020-07-22] MEDS: Metoprolol XL (24 HR) Succ 25 MG TAB.ER.24H PO SCH (08:44)
[2020-07-22] MEDS: Divalproex (12 HR) 250 MG TABLET PO SCH ×2 (08:44→20:30)
[2020-07-22] MEDS: Loratadine 10 MG TABLET PO SCH (08:44)
[2020-07-22] MEDS: Renal Vitamin 1 CAP CAPSULE PO SCH (08:44)
[2020-07-22] MEDS: Gabapentin 100 MG CAPSULE PO SCH ×3 (08:45→20:30)
[2020-07-22] MEDS: Insulin LISPRO 300 UNITS/3 ML VIAL SUBQ SCH ×4 (08:45→20:12)
[2020-07-22] MEDS ORDERED: *HR* OxyCODONE Immed Rel 5 MG TABLET PO ONE (09:12)
[2020-07-22 13:12] LABS: Hemoglobin 9.5 g/dL (12.9-16.9)
[2020-07-22] MEDS: cefTRIAXone 2,000 MG in Water for inj. (sterile) 20 ML IVP SCH (15:30)
[2020-07-22] MEDS: Mirtazapine 15 MG TABLET PO SCH (20:30)
[2020-07-22] MEDS: Melatonin 3 MG TABLET PO SCH (20:30)
[2020-07-22] MEDS: traZODone 50 MG TABLET PO SCH (20:30)
[2020-07-22] MEDS ORDERED: Lido/Epi/Tetra Gel 2 ML SYRINGE TP ONE (21:21)
[2020-07-23 06:10] LABS: Hematocrit 27.8 % (37.5-50.1); Mean Corpuscular HGB Conc 32.4 g/dL (31.6-35.5); Mean Corpuscular Hemoglobin 31.1 pg (28.0-33.3); Mean Corpuscular Volume 96.2 fL (83.0-100.0); Mean Platelet Volume 9.1 fL (9.4-12.4); Platelet Count 233 K/mcL (140-400); Red Blood Count 2.89 M/mcL (4.19-5.50); Red Cell Distribution Width 14.6 % (11.5-14.5); White Blood Count 11.4 K/mcL (4.3-11.1)
[2020-07-23] MEDS: *HR* Heparin 5,000 UNIT/ML VIAL SQ SCH (06:19)
[2020-07-23 06:28] LABS: Albumin 2.5 g/dL (3.5-5.7); Albumin/Globulin Ratio 0.9 (1.1-2.2); Bilirubin,Total 0.2 mg/dL (0.3-1.0); Calcium 7.4 mg/dL (8.6-10.3); Globulin 2.7 g/dL (2.4-3.5); Magnesium 1.6 mg/dL (1.6-2.6); Phosphorous 2.3 mg/dL (2.7-4.5); Potassium 3.8 mEq/L (3.5-5.1); Total Protein 5.2 g/dL (6.4-8.9)
[2020-07-23] MEDS ORDERED: 0.9 % Sodium Chloride 2,000 ML ONE (06:54)
[2020-07-23] MEDS ORDERED: 0.9 % Sodium Chloride 250 ML IVC PRN (07:01)
[2020-07-23] MEDS ORDERED: 0.9 % Sodium Chloride 1,000 ML PRIME SCH (07:15)
[2020-07-23] MEDS: Insulin LISPRO 300 UNITS/3 ML VIAL SUBQ SCH ×2 (08:13→12:01)
[2020-07-23] MEDS: Metoprolol XL (24 HR) Succ 25 MG TAB.ER.24H PO SCH (08:14)
[2020-07-23] MEDS: Loratadine 10 MG TABLET PO SCH (08:35)
[2020-07-23] MEDS: Divalproex (12 HR) 250 MG TABLET PO SCH (08:35)
[2020-07-23] MEDS: Aspirin 81 MG TAB.CHEW PO SCH (08:35)
[2020-07-23] MEDS: Gabapentin 100 MG CAPSULE PO SCH ×2 (08:35→16:00)
[2020-07-23] MEDS: Renal Vitamin 1 CAP CAPSULE PO SCH (08:35)
[2020-07-23 15:15] VITALS: BP 108/48
[2020-07-23] MEDS ORDERED: CLEAR EYES NATURAL TEARS 15 ML BOTTLE BOTH EYES SCH (21:00)
== END 2020-07-23 17:24 | disposition hospice, home (50) ==
LOC: EMEROOARM 06:16 → CDU 06:16 → SUATTDRO 09:01 → CDU 09:22 → 2ANU 07-23 06:12
PROVIDERS: ADMIT Internal Medicine; ATTEND Internal Medicine

== ENCOUNTER 2020-08-11 05:58 | Inpatient (IN) ==
[2020-08-11] MEDS ORDERED: 0.9 % Sodium Chloride 1,000 ML IVC ONE ×3 (06:04→09:18)
[2020-08-11] MEDS ORDERED: Acetaminophen 650 MG RECTAL SUPP RC ONE (06:27)
[2020-08-11] MEDS ORDERED: Vancomycin 1,500 MG/265 ML IV.SOLN IVPB ONE (06:27)
[2020-08-11] MEDS ORDERED: Piperacillin/Tazobactam 3.375 GM in 0.9 % Sodium Chloride Mini Bag 100 ML IVPB ONE (06:27)
[2020-08-11 06:53] LABS: Hemoglobin 8.3 g/dL (12.9-16.9)
[2020-08-11 06:55] LABS: Hematocrit 26.1 % (37.5-50.1); Mean Corpuscular HGB Conc 31.8 g/dL (31.6-35.5); Mean Corpuscular Hemoglobin 31.2 pg (28.0-33.3); Mean Corpuscular Volume 98.1 fL (83.0-100.0); Mean Platelet Volume 10.3 fL (9.4-12.4); Platelet Count 284 K/mcL (140-400); Red Blood Count 2.66 M/mcL (4.19-5.50); Red Cell Distribution Width 16.9 % (11.5-14.5); White Blood Count 28.7 K/mcL (4.3-11.1)
[2020-08-11 06:57] LABS: INR 1.6
[2020-08-11 07:00] LABS: Activated Partial Thrombo Time 26.1 Seconds (26.0-36.0)
[2020-08-11 07:13] LABS: Lymphocytes # 0.6 K/mcL (0.6-4.6); Monocytes # 0.6 K/mcL (0.0-1.3); Neutrophils # 27.6 K/mcL (1.6-8.9); Platelet Estimate Normal (Normal)
[2020-08-11 07:16] LABS: Bacteria,Urine Moderate per hpf (None-Few); Bilirubin,Urine Negative (Negative); Blood,Urine Moderate (Negative); Clarity,Urine Turbid (Clear); Color,Urine Yellow (Yellow); Glucose,Urine (UA) 200 mg/dL (Normal); Ketones,Urine Negative (Negative); Leukocyte Esterase,Urine Large (Negative); Nitrite,Urine Negative (Negative); Protein,Urine >=300 mg/dL (Neg-Trace); RBC,Urine 30-50 per hpf (0-3); Squamous Epithelial Cell,Urine Few per hpf (None-Few); Urobilinogen,Urine Normal (Normal); WBC,Urine 50-100 per hpf (0-3)
[2020-08-11 07:17] LABS: Alanine Aminotransferase 11 Units/L (7-52); Albumin/Globulin Ratio 0.8 (1.1-2.2); Alkaline Phosphatase 109 Units/L (34-104); Aspartate Amino Transferase 16 Units/L (13-39); BUN/Creatinine Ratio 9 (6-26); Bilirubin,Direct 0.2 mg/dL (0.0-0.2); Bilirubin,Indirect 0.3 mg/dL (0.0-1.0); Bilirubin,Total 0.5 mg/dL (0.3-1.0); Blood Urea Nitrogen 32 mg/dL (8-23); Calcium 7.5 mg/dL (8.6-10.3); Carbon Dioxide 27 mEq/L (23-29); Chloride 98 mEq/L (98-107); Globulin 2.5 g/dL (2.4-3.5); Glucose 212 mg/dL (70-105); Lipase < 3 Units/L (11-82); Magnesium 1.7 mg/dL (1.6-2.6); Osmolality,Calculated 291 (280-300); Phosphorous < 1.0 mg/dL (2.7-4.5); Potassium 3.4 mEq/L (3.5-5.1); Sodium 134 mEq/L (136-145); Total Protein 4.5 g/dL (6.4-8.9); eGFR For African Americans 22 (> 60); eGFR For Non-African Americans 18 (> 60)
[2020-08-11] MEDS ORDERED: Naloxone 0.4 MG/ML INJ IVP PRN (08:18)
[2020-08-11] MEDS ORDERED: Potassium Phosphate 44 MEQ in 0.9 % Sodium Chloride 250 ML IVPB ONE (09:00)
[2020-08-11] MEDS ORDERED: Albumin 25% 25gram/100mL 25 GM/100 ML IV.SOLN IVPB ONE (09:18)
[2020-08-11 09:38] LABS: Adenovirus Not Detected (Not Detect); Bordetella Pertussis Not Detected (Not Detect); Chlamydophila pneumoniae Not Detected (Not Detect); Coronavirus 229E Not Detected (Not Detect); Coronavirus HKU1 Not Detected (Not Detect); Coronavirus NL63 Not Detected (Not Detect); Coronavirus OC43 Not Detected (Not Detect); Human Metapneumovirus Not Detected (Not Detect); Human Rhinovirus/Enterovirus Not Detected (Not Detect); Influenza A Subtype 2009 H1 Not Detected (Not Detect); Influenza B Not Detected (Not Detect); Mycoplasma pneumoniae Not Detected (Not Detect); Parainfluenza Virus 1 Not Detected (Not Detect); Parainfluenza Virus 2 Not Detected (Not Detect); Parainfluenza Virus 3 Not Detected (Not Detect); Parainfluenza Virus 4 Not Detected (Not Detect); Respiratory Syncytial Virus Not Detected (Not Detect); SARS-CoV-2 Not Detected (Not Detect)
[2020-08-11] MEDS: Renal Vitamin 1 CAP CAPSULE PO SCH (11:04)
[2020-08-11] MEDS ORDERED: Acetaminophen IV 1,000 MG/100 ML BAG IVPB ONE (11:24)
[2020-08-11] MEDS ORDERED: *HR* Heparin 5,000 UNIT/ML VIAL IVP PRN (13:49)
[2020-08-11] MEDS ORDERED: *HR* Heparin 5,000 UNIT/ML VIAL IVP ONE (13:49)
[2020-08-11] MEDS ORDERED: Heparin 25,000UNIT/250ML 1/2NS 25,000 UNIT/250 ML IV.SOLN IVC SCH (14:00)
[2020-08-11 14:38] LABS: Heparin anti-factor XA UFH < 0.04 IU/mL (0.30-0.70); INR 1.7
[2020-08-11] MEDS: Aspirin Enteric Coated 81 MG Tablet PO SCH (15:43)
[2020-08-11] MEDS: Piperacillin/Tazobactam 3.375 GM in 0.9 % Sodium Chloride Mini Bag 100 ML IVPB SCH (16:51)
[2020-08-11] MEDS ORDERED: *HR* Heparin 5,000 UNIT/ML VIAL SQ SCH (18:00)
[2020-08-11] MEDS: Mirtazapine 15 MG TABLET PO SCH (20:38)
[2020-08-11] MEDS: *HR* Heparin 5,000 UNIT/ML VIAL IVP PRN (22:08)
[2020-08-12 05:13] LABS: Hematocrit 17.6 % (37.5-50.1); Mean Corpuscular HGB Conc 32.4 g/dL (31.6-35.5)
[2020-08-12 05:14] LABS: Mean Corpuscular Hemoglobin 31.3 pg (28.0-33.3); Mean Corpuscular Volume 96.7 fL (83.0-100.0); Mean Platelet Volume 9.6 fL (9.4-12.4); Platelet Count 222 K/mcL (140-400); Red Blood Count 1.82 M/mcL (4.19-5.50); White Blood Count 23.3 K/mcL (4.3-11.1)
[2020-08-12 05:23] LABS: Hemoglobin 5.7 g/dL (12.9-16.9)
[2020-08-12 05:31] LABS: Calcium 6.9 mg/dL (8.6-10.3); Magnesium 1.8 mg/dL (1.6-2.6); Phosphorous 2.3 mg/dL (2.7-4.5); Potassium 3.7 mEq/L (3.5-5.1)
[2020-08-12] MEDS: Piperacillin/Tazobactam 3.375 GM in 0.9 % Sodium Chloride Mini Bag 100 ML IVPB SCH ×2 (05:41→20:25)
[2020-08-12 06:04] LABS: Anisocytosis 1+ (Not Present); Lymphocytes # 0.9 K/mcL (0.6-4.6); Platelet Estimate Normal (Normal)
[2020-08-12 06:14] LABS: Mean Corpuscular Volume 96.7 fL (83.0-100.0); Mean Platelet Volume 9.5 fL (9.4-12.4)
[2020-08-12 06:15] LABS: Hematocrit 17.4 % (37.5-50.1); Mean Corpuscular HGB Conc 33.3 g/dL (31.6-35.5); Mean Corpuscular Hemoglobin 32.2 pg (28.0-33.3); Platelet Count 222 K/mcL (140-400); White Blood Count 23.5 K/mcL (4.3-11.1)
[2020-08-12 06:17] LABS: Hemoglobin 5.8 g/dL (12.9-16.9)
[2020-08-12 06:32] LABS: Calcium 6.9 mg/dL (8.6-10.3); Magnesium 1.7 mg/dL (1.6-2.6); Potassium 3.8 mEq/L (3.5-5.1)
[2020-08-12 06:39] LABS: Eosinophils # 0.5 K/mcL (0.0-0.6); Lymphocytes # 1.4 K/mcL (0.6-4.6); Neutrophils # 21.2 K/mcL (1.6-8.9)
[2020-08-12 06:40] LABS: Anisocytosis 1+ (Not Present); Platelet Estimate Normal (Normal)
[2020-08-12] MEDS: *HR* Heparin 5,000 UNIT/ML VIAL IVP PRN (06:41)
[2020-08-12] MEDS ORDERED: 0.9 % Sodium Chloride 250 ML IVC PRN ×2 (07:01→22:01)
[2020-08-12] MEDS ORDERED: Albumin 25% 25gram/100mL 25 GM/100 ML IV.SOLN IVPB PRN ×2 (07:01→22:01)
[2020-08-12] MEDS ORDERED: 0.9 % Sodium Chloride 1,000 ML PRIME SCH ×2 (07:15→22:01)
[2020-08-12] MEDS ORDERED: Vancomycin 1 EACH in 0.9 % Sodium Chloride 250 ML IVPB PRN ×2 (08:00→22:01)
[2020-08-12 14:59] LABS: Hematocrit 23.8 % (37.5-50.1)
[2020-08-12 15:09] LABS: Hemoglobin 7.8 g/dL (12.9-16.9)
[2020-08-12 15:36] LABS: Ferritin > 1500 ng/mL (20-250); Iron 50 mcg/dL (65-175); Transferrin < 75 mg/dL (203-362)
[2020-08-12] MEDS: Aspirin Enteric Coated 81 MG Tablet PO SCH (16:09)
[2020-08-12] MEDS: Renal Vitamin 1 CAP CAPSULE PO SCH (16:10)
[2020-08-12] MEDS ORDERED: Ondansetron 4 MG/2 ML VIAL IVP PRN ×2 (17:02→22:01)
[2020-08-12] MEDS ORDERED: Morphine Sulfate 2 MG/ML SYRINGE IVP PRN ×2 (17:02→22:01)
[2020-08-12] MEDS ORDERED: Vancomycin 500 MG in 0.9 % Sodium Chloride Mini Bag 100 ML IVPB ONE (18:00)
[2020-08-12] MEDS ORDERED: *HR* FentaNYL (PF) 100 MCG/2 ML VIAL ONE (18:21)
[2020-08-12] MEDS ORDERED: *HR* Propofol 200 MG/20 ML VIAL IVP ONE ×2 (18:21→18:22)
[2020-08-12] MEDS ORDERED: *HR* Succinylcholine 200 MG/10 ML VIAL IVP ONE (18:24)
[2020-08-12] MEDS ORDERED: Lidocaine HCL 4 ML Topical Solution (Laryng-O-Jet Kit Sterile Pak) TP ONE (18:25)
[2020-08-12] MEDS ORDERED: Lidocaine -MPF 2% 2 ML VIAL ONE (18:25)
[2020-08-12] MEDS ORDERED: Ondansetron 4 MG/2 ML VIAL ONE (18:25)
[2020-08-12] MEDS ORDERED: Dexamethasone 4 MG/ML VIAL ONE (18:25)
[2020-08-12] MEDS ORDERED: CefOXitin 1,000 MG VIAL ONE (19:18)
[2020-08-12] MEDS ORDERED: Piperacillin/Tazobactam 3.375 GM VIAL ONE (20:30)
[2020-08-12] MEDS: Mirtazapine 15 MG TABLET PO SCH (20:35)
[2020-08-12] MEDS ORDERED: Simethicone 80 MG TAB.CHEW PO SCH (21:00)
[2020-08-12] MEDS ORDERED: Divalproex (12 HR) 250 MG TABLET PO SCH (21:00)
[2020-08-12] MEDS ORDERED: Melatonin 3 MG TABLET PO SCH (21:00)
[2020-08-12 21:12] LABS: Hemoglobin 8.4 g/dL (12.9-16.9)
[2020-08-12] MEDS ORDERED: Naloxone 0.4 MG/ML INJ IVP PRN (22:01)
[2020-08-12] MEDS: *HR* OxyCODONE/APAP 10/325 TABLET PO PRN (22:31)
[2020-08-13] MEDS: Piperacillin/Tazobactam 3.375 GM in 0.9 % Sodium Chloride Mini Bag 100 ML IVPB SCH ×2 (05:22→18:30)
[2020-08-13 06:35] LABS: Mean Platelet Volume 9.5 fL (9.4-12.4)
[2020-08-13 06:37] LABS: Hemoglobin 6.2 g/dL (12.9-16.9); Mean Corpuscular HGB Conc 32.6 g/dL (31.6-35.5); Mean Corpuscular Hemoglobin 31.5 pg (28.0-33.3); Mean Corpuscular Volume 96.4 fL (83.0-100.0); Platelet Count 226 K/mcL (140-400); Red Blood Count 1.97 M/mcL (4.19-5.50); Red Cell Distribution Width 17.4 % (11.5-14.5); White Blood Count 27.8 K/mcL (4.3-11.1)
[2020-08-13 06:56] LABS: Potassium 3.5 mEq/L (3.5-5.1)
[2020-08-13 06:59] LABS: Lymphocytes # 1.1 K/mcL (0.6-4.6); Monocytes # 0.6 K/mcL (0.0-1.3); Neutrophils # 26.1 K/mcL (1.6-8.9)
[2020-08-13 07:00] LABS: Anisocytosis 1+ (Not Present); Platelet Estimate Normal (Normal); Toxic Granulation Present (Not Present)
[2020-08-13] MEDS ORDERED: 0.9 % Sodium Chloride 250 ML IVC PRN (07:07)
[2020-08-13] MEDS ORDERED: 0.9 % Sodium Chloride 250 ML IVC SCH (08:30)
[2020-08-13] MEDS ORDERED: Metoprolol XL (24 HR) Succ 25 MG TAB.ER.24H PO SCH (09:00)
[2020-08-13] MEDS ORDERED: Furosemide 40 MG TABLET PO SCH (09:00)
[2020-08-13] MEDS: Divalproex (12 HR) 250 MG TABLET PO SCH ×2 (12:46→20:13)
[2020-08-13] MEDS: Simethicone 80 MG TAB.CHEW PO SCH ×3 (12:46→20:13)
[2020-08-13] MEDS: Metoprolol XL (24 HR) Succ 25 MG TAB.ER.24H PO SCH (12:47)
[2020-08-13] MEDS: Aspirin Enteric Coated 81 MG Tablet PO SCH (12:47)
[2020-08-13] MEDS: Renal Vitamin 1 CAP CAPSULE PO SCH (12:48)
[2020-08-13 13:19] LABS: Hematocrit 22.9 % (37.5-50.1); Hemoglobin 7.7 g/dL (12.9-16.9)
[2020-08-13 13:32] LABS: Magnesium 1.6 mg/dL (1.6-2.6); Phosphorous < 1.0 mg/dL (2.7-4.5)
[2020-08-13 13:36] LABS: C-Reactive Protein 217 mg/L (Less than 10); Creatine Kinase 19 Units/L (30-223)
[2020-08-13] MEDS ORDERED: Vancomycin 500 MG in 0.9 % Sodium Chloride Mini Bag 100 ML IVPB ONE (18:00)
[2020-08-13 19:23] LABS: Folate 11.5 ng/mL (3.0-16.0)
[2020-08-13] MEDS: Melatonin 3 MG TABLET PO SCH (20:13)
[2020-08-13] MEDS: Mirtazapine 15 MG TABLET PO SCH (20:14)
[2020-08-13] MEDS: *HR* OxyCODONE/APAP 10/325 TABLET PO PRN (20:14)
[2020-08-13 20:46] LABS: Hematocrit 22.8 % (37.5-50.1); Hemoglobin 7.5 g/dL (12.9-16.9)
[2020-08-14] MEDS: Piperacillin/Tazobactam 3.375 GM in 0.9 % Sodium Chloride Mini Bag 100 ML IVPB SCH ×2 (06:59→18:31)
[2020-08-14 07:13] LABS: Hematocrit 21.1 % (37.5-50.1); Hemoglobin 6.9 g/dL (12.9-16.9); Lymphocytes # 1.3 K/mcL (0.6-4.6); Mean Corpuscular HGB Conc 32.7 g/dL (31.6-35.5); Mean Corpuscular Hemoglobin 30.5 pg (28.0-33.3); Mean Corpuscular Volume 93.4 fL (83.0-100.0); Mean Platelet Volume 9.5 fL (9.4-12.4); Platelet Count 220 K/mcL (140-400); Red Blood Count 2.26 M/mcL (4.19-5.50); Red Cell Distribution Width 18.7 % (11.5-14.5); White Blood Count 21.3 K/mcL (4.3-11.1)
[2020-08-14 07:31] LABS: Albumin 1.9 g/dL (3.5-5.7); Albumin/Globulin Ratio 0.9 (1.1-2.2); Bilirubin,Total 0.4 mg/dL (0.3-1.0); Calcium 6.7 mg/dL (8.6-10.3); Globulin 2.2 g/dL (2.4-3.5); Magnesium 1.5 mg/dL (1.6-2.6); Potassium 3.3 mEq/L (3.5-5.1); Total Protein 4.1 g/dL (6.4-8.9)
[2020-08-14] MEDS ORDERED: Potassium Phosphate 44 MEQ in 0.9 % Sodium Chloride 250 ML IVPB ONE (08:06)
[2020-08-14] MEDS ORDERED: 0.9 % Sodium Chloride 250 ML IVC SCH (08:15)
[2020-08-14 08:48] LABS: Eosinophils # 0.4 K/mcL (0.0-0.6); Monocytes # 0.4 K/mcL (0.0-1.3); Neutrophils # 19.2 K/mcL (1.6-8.9)
[2020-08-14 08:49] LABS: Platelet Estimate Normal (Normal)
[2020-08-14] MEDS: Renal Vitamin 1 CAP CAPSULE PO SCH ×2 (08:52→11:58)
[2020-08-14] MEDS: Metoprolol XL (24 HR) Succ 25 MG TAB.ER.24H PO SCH ×2 (08:53→11:58)
[2020-08-14] MEDS: Aspirin Enteric Coated 81 MG Tablet PO SCH ×2 (08:53→11:58)
[2020-08-14] MEDS: Divalproex (12 HR) 250 MG TABLET PO SCH ×3 (08:53→20:07)
[2020-08-14] MEDS: Simethicone 80 MG TAB.CHEW PO SCH ×3 (08:58→20:03)
[2020-08-14] MEDS ORDERED: 0.9 % Sodium Chloride 250 ML ONE (09:41)
[2020-08-14] MEDS: Ondansetron ODT 4 MG TAB.RAPDIS SL PRN (09:52)
[2020-08-14] MEDS: Calcium Gluconate 1gm/50mL 1 GM/50 ML BAG IVPB SCH ×2 (11:53→13:41)
[2020-08-14] MEDS: Mirtazapine 15 MG TABLET PO SCH (20:07)
[2020-08-14] MEDS: Melatonin 3 MG TABLET PO SCH (20:07)
[2020-08-14] MEDS: *HR* OxyCODONE/APAP 10/325 TABLET PO PRN (20:07)
[2020-08-14 22:28] LABS: Hemoglobin 8.5 g/dL (12.9-16.9)
[2020-08-15 01:14] LABS: Basophils # 0.1 K/mcL (0.0-0.2); Basophils % 0.7 %; Eosinophils # 0.2 K/mcL (0.0-0.6); Eosinophils % 0.9 %; Hematocrit 26.4 % (37.5-50.1); Hemoglobin 8.7 g/dL (12.9-16.9); Immature Granulocytes % 4.8 % (0-4); Lymphocytes # 1.3 K/mcL (0.6-4.6); Lymphocytes % 6.8 %; Mean Corpuscular Hemoglobin 30.9 pg (28.0-33.3); Mean Corpuscular Volume 93.6 fL (83.0-100.0); Mean Platelet Volume 9.6 fL (9.4-12.4); Monocytes # 0.6 K/mcL (0.0-1.3); Monocytes % 2.9 %; Neutrophils # 16.2 K/mcL (1.6-8.9); Platelet Count 222 K/mcL (140-400); Red Blood Count 2.82 M/mcL (4.19-5.50); Red Cell Distribution Width 18.8 % (11.5-14.5); Segmented Neutrophils % 83.9 %; White Blood Count 19.3 K/mcL (4.3-11.1)
[2020-08-15 01:40] LABS: Albumin/Globulin Ratio 0.9 (1.1-2.2); Bilirubin,Total 0.5 mg/dL (0.3-1.0); Calcium 6.9 mg/dL (8.6-10.3); Globulin 2.3 g/dL (2.4-3.5); Magnesium 2.1 mg/dL (1.6-2.6); Phosphorous 3.6 mg/dL (2.7-4.5); Potassium 4.3 mEq/L (3.5-5.1); Total Protein 4.3 g/dL (6.4-8.9)
[2020-08-15] MEDS: Piperacillin/Tazobactam 3.375 GM in 0.9 % Sodium Chloride Mini Bag 100 ML IVPB SCH ×2 (05:59→18:01)
[2020-08-15] MEDS: Metoprolol XL (24 HR) Succ 25 MG TAB.ER.24H PO SCH (08:19)
[2020-08-15] MEDS: Divalproex (12 HR) 250 MG TABLET PO SCH ×2 (08:19→22:27)
[2020-08-15] MEDS: Renal Vitamin 1 CAP CAPSULE PO SCH (08:19)
[2020-08-15] MEDS: Aspirin Enteric Coated 81 MG Tablet PO SCH (08:19)
[2020-08-15] MEDS: Simethicone 80 MG TAB.CHEW PO SCH ×3 (08:20→22:28)
[2020-08-15] MEDS: Calcium Gluconate 1gm/50mL 1 GM/50 ML BAG IVPB SCH ×2 (12:15→13:38)
[2020-08-15] MEDS: *HR* OxyCODONE/APAP 10/325 TABLET PO PRN (12:21)
[2020-08-15] MEDS: Mirtazapine 15 MG TABLET PO SCH (22:27)
[2020-08-15] MEDS: Melatonin 3 MG TABLET PO SCH (22:28)
[2020-08-15] MEDS: Ondansetron ODT 4 MG TAB.RAPDIS SL PRN (22:38)
[2020-08-16] MEDS: *HR* OxyCODONE/APAP 10/325 TABLET PO PRN ×2 (04:41→11:16)
[2020-08-16] MEDS: Piperacillin/Tazobactam 3.375 GM in 0.9 % Sodium Chloride Mini Bag 100 ML IVPB SCH (06:35)
[2020-08-16] MEDS ORDERED: 0.9 % Sodium Chloride 250 ML IVC PRN (07:25)
[2020-08-16] MEDS ORDERED: 0.9 % Sodium Chloride 1,000 ML PRIME SCH (07:30)
[2020-08-16] MEDS: Aspirin Enteric Coated 81 MG Tablet PO SCH (07:35)
[2020-08-16] MEDS: Renal Vitamin 1 CAP CAPSULE PO SCH (07:48)
[2020-08-16] MEDS: Divalproex (12 HR) 250 MG TABLET PO SCH ×2 (07:48→20:03)
[2020-08-16] MEDS: Metoprolol XL (24 HR) Succ 25 MG TAB.ER.24H PO SCH (07:48)
[2020-08-16] MEDS: Simethicone 80 MG TAB.CHEW PO SCH ×3 (07:48→20:04)
[2020-08-16 09:18] LABS: Hematocrit 27.8 % (37.5-50.1); Hemoglobin 9.1 g/dL (12.9-16.9); Mean Corpuscular HGB Conc 32.7 g/dL (31.6-35.5); Mean Corpuscular Hemoglobin 30.1 pg (28.0-33.3); Mean Corpuscular Volume 92.1 fL (83.0-100.0); Mean Platelet Volume 9.5 fL (9.4-12.4); Platelet Count 276 K/mcL (140-400); Red Blood Count 3.02 M/mcL (4.19-5.50); Red Cell Distribution Width 17.8 % (11.5-14.5); White Blood Count 22.9 K/mcL (4.3-11.1)
[2020-08-16 09:38] LABS: Albumin/Globulin Ratio 0.7 (1.1-2.2); Bilirubin,Total 0.6 mg/dL (0.3-1.0); Calcium 7.3 mg/dL (8.6-10.3); Globulin 2.7 g/dL (2.4-3.5); Magnesium 1.9 mg/dL (1.6-2.6); Phosphorous 2.6 mg/dL (2.7-4.5); Potassium 3.9 mEq/L (3.5-5.1); Total Protein 4.7 g/dL (6.4-8.9)
[2020-08-16 10:00] LABS: Neutrophils # 20.2 K/mcL (1.6-8.9)
[2020-08-16 10:01] LABS: Lymphocytes # 1.8 K/mcL (0.6-4.6); Monocytes # 0.7 K/mcL (0.0-1.3); Platelet Estimate Normal (Normal)
[2020-08-16 10:02] LABS: Toxic Granulation Present (Not Present)
[2020-08-16] MEDS: Melatonin 3 MG TABLET PO SCH (20:04)
[2020-08-16] MEDS: Mirtazapine 15 MG TABLET PO SCH (20:04)
[2020-08-17] MEDS: Ondansetron ODT 4 MG TAB.RAPDIS SL PRN (00:28)
[2020-08-17 03:39] LABS: Hematocrit 24.4 % (37.5-50.1); Hemoglobin 8.1 g/dL (12.9-16.9); Mean Corpuscular HGB Conc 33.2 g/dL (31.6-35.5); Mean Corpuscular Hemoglobin 31.3 pg (28.0-33.3); Mean Corpuscular Volume 94.2 fL (83.0-100.0); Mean Platelet Volume 9.3 fL (9.4-12.4); Platelet Count 249 K/mcL (140-400); Red Blood Count 2.59 M/mcL (4.19-5.50); Red Cell Distribution Width 17.8 % (11.5-14.5); White Blood Count 16.5 K/mcL (4.3-11.1)
[2020-08-17 03:57] LABS: Calcium 7.1 mg/dL (8.6-10.3); Potassium 3.9 mEq/L (3.5-5.1)
[2020-08-17] MEDS ORDERED: cefOXitin 1,000 MG, Sodium Chloride IRRigation 1,000 ML IR ONE ×2 (06:00→11:00)
[2020-08-17] MEDS ORDERED: Povidone-Iodine 28.4 GM TUBE TP ONE (07:14)
[2020-08-17] MEDS ORDERED: *HR* Propofol 200 MG/20 ML VIAL IVP ONE (07:34)
[2020-08-17] MEDS ORDERED: *HR* FentaNYL (PF) 100 MCG/2 ML VIAL ONE (07:34)
[2020-08-17] MEDS ORDERED: Lidocaine HCL 4 ML Topical Solution (Laryng-O-Jet Kit Sterile Pak) TP ONE (07:37)
[2020-08-17] MEDS ORDERED: *HR* Rocuronium Bromide 50 MG/5 ML VIAL ONE (07:37)
[2020-08-17] MEDS ORDERED: Lidocaine -MPF 2% 2 ML VIAL ONE (07:37)
[2020-08-17] MEDS ORDERED: *HR* Succinylcholine 200 MG/10 ML VIAL IVP ONE (07:37)
[2020-08-17] MEDS ORDERED: Acetaminophen IV 1,000 MG/100 ML BAG IVPB ONE (08:30)
[2020-08-17] MEDS ORDERED: Ondansetron 4 MG/2 ML VIAL ONE (08:35)
[2020-08-17] MEDS ORDERED: Dexamethasone 4 MG/ML VIAL ONE (08:35)
[2020-08-17] MEDS: Simethicone 80 MG TAB.CHEW PO SCH ×3 (10:17→19:39)
[2020-08-17] MEDS ORDERED: Ondansetron ODT 4 MG TAB.RAPDIS SL PRN (11:00)
[2020-08-17] MEDS ORDERED: Albumin 25% 25gram/100mL 25 GM/100 ML IV.SOLN IVPB PRN (11:00)
[2020-08-17] MEDS ORDERED: 0.9 % Sodium Chloride 250 ML IVC SCH (11:00)
[2020-08-17] MEDS ORDERED: Naloxone 0.4 MG/ML INJ IVP PRN (11:00)
[2020-08-17] MEDS ORDERED: 0.9 % Sodium Chloride 1,000 ML PRIME SCH (11:00)
[2020-08-17] MEDS ORDERED: 0.9 % Sodium Chloride 250 ML IVC PRN (11:00)
[2020-08-17] MEDS ORDERED: Vancomycin 1 EACH in 0.9 % Sodium Chloride 250 ML IVPB PRN (11:00)
[2020-08-17] MEDS: Aspirin Enteric Coated 81 MG Tablet PO SCH (11:48)
[2020-08-17] MEDS: Divalproex (12 HR) 250 MG TABLET PO SCH ×2 (11:49→19:39)
[2020-08-17] MEDS: Renal Vitamin 1 CAP CAPSULE PO SCH (11:49)
[2020-08-17] MEDS: Metoprolol XL (24 HR) Succ 25 MG TAB.ER.24H PO SCH (11:49)
[2020-08-17] MEDS: *HR* OxyCODONE/APAP 10/325 TABLET PO PRN (11:53)
[2020-08-17 12:13] LABS: Magnesium 1.7 mg/dL (1.6-2.6); Phosphorous 5.1 mg/dL (2.7-4.5)
[2020-08-17] MEDS: Melatonin 3 MG TABLET PO SCH (19:39)
[2020-08-17] MEDS: Mirtazapine 15 MG TABLET PO SCH (19:40)
[2020-08-18 05:06] LABS: Hematocrit 30.9 % (37.5-50.1); Hemoglobin 9.5 g/dL (12.9-16.9); Mean Corpuscular HGB Conc 30.7 g/dL (31.6-35.5); Mean Corpuscular Hemoglobin 29.4 pg (28.0-33.3); Mean Corpuscular Volume 95.7 fL (83.0-100.0); Mean Platelet Volume 9.5 fL (9.4-12.4); Platelet Count 325 K/mcL (140-400); Red Blood Count 3.23 M/mcL (4.19-5.50); White Blood Count 21.6 K/mcL (4.3-11.1)
[2020-08-18 05:31] LABS: Magnesium 2.1 mg/dL (1.6-2.6); Phosphorous 6.5 mg/dL (2.7-4.5); Potassium 4.8 mEq/L (3.5-5.1)
[2020-08-18] MEDS ORDERED: 0.9 % Sodium Chloride 250 ML IVC PRN (07:17)
[2020-08-18] MEDS ORDERED: 0.9 % Sodium Chloride 1,000 ML PRIME SCH (07:30)
[2020-08-18] MEDS: Calcium Acetate 667 MG CAPSULE PO SCH ×2 (11:52→17:10)
[2020-08-18] MEDS: Simethicone 80 MG TAB.CHEW PO SCH ×3 (11:52→21:08)
[2020-08-18] MEDS: Metoprolol XL (24 HR) Succ 25 MG TAB.ER.24H PO SCH (11:53)
[2020-08-18] MEDS: Divalproex (12 HR) 250 MG TABLET PO SCH ×2 (11:53→21:07)
[2020-08-18] MEDS: Renal Vitamin 1 CAP CAPSULE PO SCH (11:53)
[2020-08-18] MEDS: Aspirin Enteric Coated 81 MG Tablet PO SCH (11:53)
[2020-08-18] MEDS: Nicotine 21 MG PATCH.TD24 TD SCH (14:23)
[2020-08-18] MEDS ORDERED: Saline Nasal Spray 44 ML BOTTLE NS PRN (15:28)
[2020-08-18] MEDS ORDERED: Vancomycin 500 MG in 0.9 % Sodium Chloride Mini Bag 100 ML IVPB ONE (16:00)
[2020-08-18] MEDS: *HR* OxyCODONE/APAP 10/325 TABLET PO PRN (21:06)
[2020-08-18] MEDS: Melatonin 3 MG TABLET PO SCH (21:23)
[2020-08-18] MEDS: Artificial Tears SOLN 15 ML BOTTLE BOTH EYES SCH (21:23)
[2020-08-18] MEDS: Mirtazapine 15 MG TABLET PO SCH (21:24)
[2020-08-19 01:16] LABS: Hematocrit 25.7 % (37.5-50.1); Hemoglobin 8.2 g/dL (12.9-16.9); Mean Corpuscular HGB Conc 31.9 g/dL (31.6-35.5); Mean Corpuscular Hemoglobin 30.8 pg (28.0-33.3); Mean Corpuscular Volume 96.6 fL (83.0-100.0); Mean Platelet Volume 9.1 fL (9.4-12.4); Platelet Count 299 K/mcL (140-400); Red Blood Count 2.66 M/mcL (4.19-5.50); Red Cell Distribution Width 17.7 % (11.5-14.5); White Blood Count 15.2 K/mcL (4.3-11.1)
[2020-08-19 01:33] LABS: Calcium 7.3 mg/dL (8.6-10.3); Potassium 3.8 mEq/L (3.5-5.1)
[2020-08-19 01:34] LABS: Magnesium 1.7 mg/dL (1.6-2.6); Phosphorous 3.5 mg/dL (2.7-4.5)
[2020-08-19] MEDS: Calcium Acetate 667 MG CAPSULE PO SCH ×3 (08:47→17:20)
[2020-08-19] MEDS: Divalproex (12 HR) 250 MG TABLET PO SCH ×2 (08:47→21:11)
[2020-08-19] MEDS: Aspirin Enteric Coated 81 MG Tablet PO SCH (08:47)
[2020-08-19] MEDS: Artificial Tears SOLN 15 ML BOTTLE BOTH EYES SCH ×2 (08:47→21:12)
[2020-08-19] MEDS: Metoprolol XL (24 HR) Succ 25 MG TAB.ER.24H PO SCH (08:48)
[2020-08-19] MEDS: Nicotine 21 MG PATCH.TD24 TD SCH (08:48)
[2020-08-19] MEDS: Renal Vitamin 1 CAP CAPSULE PO SCH (08:48)
[2020-08-19] MEDS: Simethicone 80 MG TAB.CHEW PO SCH ×3 (08:48→21:11)
[2020-08-19] MEDS: *HR* OxyCODONE/APAP 10/325 TABLET PO PRN (17:16)
[2020-08-19] MEDS: Mirtazapine 15 MG TABLET PO SCH (21:11)
[2020-08-19] MEDS: Melatonin 3 MG TABLET PO SCH (21:12)
[2020-08-20 07:02] LABS: Hematocrit 26.2 % (37.5-50.1); Hemoglobin 8.1 g/dL (12.9-16.9); Mean Corpuscular HGB Conc 30.9 g/dL (31.6-35.5); Mean Corpuscular Hemoglobin 30.1 pg (28.0-33.3); Mean Corpuscular Volume 97.4 fL (83.0-100.0); Mean Platelet Volume 8.9 fL (9.4-12.4); Platelet Count 292 K/mcL (140-400); Red Blood Count 2.69 M/mcL (4.19-5.50); Red Cell Distribution Width 17.4 % (11.5-14.5); White Blood Count 13.8 K/mcL (4.3-11.1)
[2020-08-20 07:23] LABS: Calcium 7.1 mg/dL (8.6-10.3); Magnesium 1.8 mg/dL (1.6-2.6); Phosphorous 4.6 mg/dL (2.7-4.5)
[2020-08-20 07:31] LABS: Hepatitis B Surface Antibody 3.18 mIU/mL
[2020-08-20 07:42] LABS: Hepatitis B Surface Antigen Nonreactive (Nonreactive)
[2020-08-20] MEDS: Artificial Tears SOLN 15 ML BOTTLE BOTH EYES SCH (09:20)
[2020-08-20] MEDS: Divalproex (12 HR) 250 MG TABLET PO SCH (09:20)
[2020-08-20] MEDS: Aspirin Enteric Coated 81 MG Tablet PO SCH (09:20)
[2020-08-20] MEDS: Calcium Acetate 667 MG CAPSULE PO SCH ×2 (09:20→12:14)
[2020-08-20] MEDS: Nicotine 21 MG PATCH.TD24 TD SCH (09:21)
[2020-08-20] MEDS: Simethicone 80 MG TAB.CHEW PO SCH (09:21)
[2020-08-20] MEDS: Renal Vitamin 1 CAP CAPSULE PO SCH (09:22)
[2020-08-20] MEDS: Metoprolol XL (24 HR) Succ 25 MG TAB.ER.24H PO SCH (09:22)
[2020-08-20 15:44] VITALS: BP 152/68
== END 2020-08-20 18:16 | disposition hospice, home (50) | DRG 710 ==
LOC: 2NNU 05:58 → EMEROOARM 05:58 → SUATTDRO 09:02 → 2NNU 09:46 → 2ANU 08-16 11:48
PROVIDERS: ADMIT Student in an Organized Health Care Education/Training Program; ATTEND Internal Medicine